=== PATIENT | male | born 1965 | race Caucasian/White ===

== ENCOUNTER 2016-10-15 05:57 | Day surgery (SDC) | payer BC ==
[2016-09-30 07:56] VITALS: BMI 42.0
[2016-10-02 13:12] VITALS: BMI 41.0
--- NOTE | 2016-10-02 13:40 | PAT Medication Instructions ---
Service Date Oct 02, 2016. Current Home Medication List Aspirin (Aspirin Ec), 81 MG PO QAM Atorvastatin (Lipitor), 40 MG PO QAM Clopidogrel (Plavix), 75 MG PO QAM Fish Oil (Gunnison-3), 2 CAP PO QAM Insulin Aspart (Novolog), 0 SC UD Insulin Glargine (Lantus), 50 UNITS SC QPM Lisinopril (Lisinopril), 2.5 MG PO QAM Metformin Hcl (Glucophage), 1,000 MG PO HS Metoprolol Succinate (Toprol Xl), 50 MG PO QAM Minocycline Hcl (Minocin), 100 MG PO QAM Nitroglycerin (Nitrostat), 0.4 MG UT PRN Tamsulosin Hcl (Flomax), 0.4 MG PO QPM Medication Instructions For Your Scheduled Surgery - Check with surgeon/internal carver for instructions: Aspirin (Aspirin Ec), 81 MG PO QAM Clopidogrel (Plavix), 75 MG PO QAM - Hold the following medications 2 weeks prior to surgery: Fish Oil (Gunnison-3), 2 CAP PO QAM - Hold the following medications 48 hours prior to surgery: Metformin Hcl (Glucophage), 1,000 MG PO HS - Hold the following medications the morning of surgery: Lisinopril (Lisinopril), 2.5 MG PO QAM Insulin Aspart (Novolog), 0 SC UD - Take the following medications the morning of surgery with a sip of water: Nitroglycerin (Nitrostat), 0.4 MG UT PRN (if needed) Metoprolol Succinate (Toprol Xl), 50 MG PO QAM Atorvastatin (Lipitor), 40 MG PO QAM Minocycline Hcl (Minocin), 100 MG PO QAM - Take the following medications as scheduled the night before surgery: Nitroglycerin (Nitrostat), 0.4 MG UT PRN (if needed) Tamsulosin Hcl (Flomax), 0.4 MG PO QPM Insulin Glargine (Lantus), 50 UNITS SC QPM Insulin Aspart (Novolog), 0 SC UD If you have any questions please call us at [phone] or [phone] or [phone]
[2016-10-08 10:13] VITALS: BMI 41.0
[~2016-10-15] VITALS: Ht 177.8 cm; Wt 131.1 kg
[~2016-10-15 05:57] MED LIST: ASPI81TA28 PO; CLOP1TAB15 PO; INSU1INJ7 SC; LISI2.5T5 PO; LPT/40 PO; METF1000 PO; METO-217 PO; MINO1CAP25 PO; NTRGSL/4 UT; NVLGI SC; OMEG10007 PO; TAMS0.4C38 PO
[2016-10-15] MEDS ORDERED: CEFAZOLIN 3000 MG/65 ML D5W IV SCH (06:00)
[2016-10-15] MEDS ORDERED: LACTATED RINGER'S 1000ML 1,000 ML IV SCH (06:00)
[2016-10-15] MEDS ORDERED: OXYMETAZOLINE HCL 0.05% NA SPR 15 ML BTL NAE SCH (06:00)
[2016-10-15 06:35] VITALS: BP 156/81; PULSE 78; TEMP 37.3; O2SAT 98; Ht 177.8 cm; Wt 131.1 kg
--- NOTE | 2016-10-15 07:40 | History & Physical Bridge Note ---
H&P Re-Evaluation Bridge Note: I have examined the patient, reviewed the History & Physical and in the interval since the performance of the History & Physical I have noted the following changes of clinical significance: No changes noted
[2016-10-15] MEDS ORDERED: LIDOCAINE/EPINEPHRINE 1% 20 ML VIAL ONE (07:47)
[2016-10-15] MEDS ORDERED: LIDOCAINE 4% INH SOLN 4 ML BTL ONE ×2 (07:48→08:42)
[2016-10-15] MEDS ORDERED: LIDOCAINE HCL 2% 2 ML VIAL (20MG/ML) ONE (07:49)
[2016-10-15] MEDS ORDERED: MIDAZOLAM HCL 1 MG/ML 2ML VIAL ONE (07:49)
[2016-10-15] MEDS ORDERED: SUCCINYLCHOLINE CHLORIDE 20 MG/ML 10 ML VIAL IV ONE (07:49)
[2016-10-15] MEDS ORDERED: PROPOFOL IV EMULSION 10 MG/ML 20 ML VIAL IV ONE (07:49)
[2016-10-15] MEDS ORDERED: ROCURONIUM BROMIDE 10 MG/ML 5 ML VIAL ONE (07:49)
[2016-10-15] MEDS ORDERED: FENTANYL CITRATE INJ 50 MCG/1 ML 2 ML VIAL ONE (07:50)
[2016-10-15] MEDS ORDERED: EpINEphrine INJ 1MG/ML AMP 1 MG/ML AMP ONE ×2 (07:51→08:42)
[2016-10-15] MEDS ORDERED: BACITRACIN OINT 15 GM TUBE ONE (08:14)
[2016-10-15] MEDS ORDERED: ONDANSETRON INJ 2 MG/ML 2 ML VIAL ONE (08:23)
[2016-10-15] MEDS ORDERED: FENTANYL CITRATE INJ 50 MCG/1 ML 2 ML VIAL IV PRN (08:30)
[2016-10-15] MEDS ORDERED: ATROPINE SULFATE 0.1 MG/ML 5ML SYR IV PRN (08:30)
[2016-10-15] MEDS ORDERED: EpHEDrine SULFATE INJ 50 MG/ML AMP IV PRN (08:30)
--- NOTE | 2016-10-15 08:51 | [facility] Operative Report ---
Operative Report Operative Date Oct 15, 2016. Pre-Operative Diagnosis Deviated Septum, Hypertrophy of Both Inferior Nasal Turbinates Post-Operative Diagnosis Deviated Septum, Hypertrophy of Both Inferior Nasal Turbinates Procedure(s) Performed Septoplasty; Bilateral Inferior Turbinate Reduction Surgeon Dr aHmeed Cold Type Artist Surgeon(s) None Estimated Blood Loss 20cc Findings 1. SEVERE L SEPTAL DEVIATION 2. R>L INF TURB HYPERTROPHY Specimens None as per surgeon I attest to the content of the Intraoperative Record and any orders documented therein. Any exceptions are noted below.
--- NOTE | 2016-10-15 08:54 | Discharge Instructions ---
Discharge Instructions Date of Service Oct 15, 2016. Admission Reason for Admission: Deviated Septum, Hypertrophy Both Inferior Nasal Discharge Discharge Diagnosis / Problem: SAME Discharge Goals Goal(s): Therapeutic intervention Activity Recommendations Activity Limitations: as noted below 1. LIGHT ACTIVITY AND NO NOSE BLOWING FOR 2 WEEKS 2. NO DRIVING WHILE ON NORCO . Current Hospital Diet Patient's current hospital diet: Discharge Diet Recommended Diet: Regular Diet Procedures Procedures Performed: Septoplasty; Bilateral Inferior Turbinate Reduction Pending Studies Studies pending at discharge: no Medical Emergencies . Who to Call and When: Medical Emergencies: If at any time you feel your situation is an emergency, please call 911 immediately. . Non-Emergent Contact Non-Emergency issues call your: Surgeon . . "Provider Documentation" section prepared by Pietro Hameed. . VTE Core Measure Inpt VTE Proph given/why not?: SCD's
[2016-10-15] MEDS ORDERED: ONDANSETRON INJ 2 MG/ML 2 ML VIAL IV PRN (09:00)
[2016-10-15] MEDS ORDERED: OXYMETAZOLINE HCL 0.05% NA SPR 15 ML BTL PRN (09:00)
[2016-10-15] MEDS ORDERED: HYDROCODONE/ACETAMOPHEN 5/325MG TAB PO PRN (09:00)
[2016-10-15 09:40] VITALS: BP 159/76; PULSE 81; TEMP 37.2; O2SAT 93
--- NOTE | 2016-10-15 09:41 | OPERATIVE REPORT ---
DATE OF OPERATION: 10/15/2016 PREOPERATIVE DIAGNOSES: 1. Left septal deviation. 2. Right greater than left inferior turbinate hypertrophy. POSTOPERATIVE DIAGNOSES: 1. Left septal deviation. 2. Right greater than left inferior turbinate hypertrophy. PROCEDURES: 1. Septoplasty. 2. Bilateral inferior turbinate outfracture and turbinoplasty. SURGEON: Dr. Hameed. ANESTHESIA: General endotracheal. ESTIMATED BLOOD LOSS: 20 mL. FINDINGS: 1. Severe left septal deviation with both cartilaginous and bony deviation. 2. Severe right greater than left inferior turbinate hypertrophy. SPECIMENS: None. COMPLICATIONS: None. INDICATIONS FOR THE PROCEDURE: The patient is a 51-year-old male with a history of left nasal airway obstruction who was found to have severe left nasal septal deviation as well as right greater than left inferior turbinate hypertrophy. The patient presents for the above-mentioned procedure on an outpatient elective basis. DETAILS OF PROCEDURE: After informed consent had been obtained from the patient, the patient was wheeled to the operating room and placed on the operating table in supine position. Monitors placed. After induction of general endotracheal anesthesia, the patient was prepped in the usual fashion for septoplasty. 9 mL of 1% lidocaine with 1:100,000 epinephrine was used to inject the nasal septum, thereby performing hydrodissection of the mucoperichondrial and mucoperiosteal flaps bilaterally. Lidocaine and epinephrine pledgets were placed in the bilateral nasal cavities and pressure applied. Curved iris scissors were used to trim the patient's nasal vibrissae. The pledgets were removed. A #15 scalpel was used to make a left Garrett incision through which the left sided mucoperichondrial and mucoperiosteal flap was elevated. A #15 scalpel was then used to incise the quadrangular cartilage with care to preserve a 1.5 cm dorsal and caudal strut and the right-sided mucoperichondrial mucoperiosteal flap was elevated through this cartilaginous incision. A Jailyn swivel knife was then used to remove the deviated portion of the quadrangular cartilage. A V-shaped osteotome, mallet, and Jody forceps was then used to remove a large bony septal spur. After removal of the spur, the septum was found to be midline. The septal cavity was suctioned. The left Garrett incision was closed with several simple interrupted 4-0 chromic sutures. A 4-0 plain gut suture on a Montrell needle was then used to perform a quilting stitch of the mucoperichondrial mucoperiosteal flaps bilaterally to help prevent septal hematoma. A Ellis elevator was then used to infracture and subsequently outfracture the inferior turbinates bilaterally. These are injected with 3 mL of 1% lidocaine with 1:100,000 epinephrine. A 2.0 mm turbinate blade using powered instrumentation was then used to perform bilateral inferior turbinoplasties in a submucosal fashion. The nasal cavities and nasopharynx were then suctioned. An orogastric tube was placed and the stomach was suctioned of air and stomach contents. This marked the end of the case. The patient tolerated the procedure well and there were no apparent complications. The patient was extubated and transferred to recovery room in stable condition. I attest to the content of the Intraoperative Record and any orders documented therein. Any exception s are noted below.
[2016-10-15] MEDS ORDERED: LABETALOL HCL IV 5 MG/ML 20ML IV ONE (09:46)
[2016-10-15] MEDS ORDERED: PHENYLEPHRINE HCL INJ 10 MG/ML VIAL ONE (09:46)
[2016-10-15 10:20] VITALS: BP 168/83; PULSE 80; TEMP 37.2; O2SAT 92
[2016-10-15 10:40] VITALS: BP 175/82; PULSE 83; O2SAT 93
--- NOTE | 2016-10-15 11:21 | Anesthesiology Progress Note ---
Anesthesia Post Op Note Date & Time Oct 15, 2016 at 11:20 Vital Signs Pain Intensity: 3 Vital Signs Past 12 Hours Date Time Temp Pulse Resp B/P (MAP) Pulse Ox O2 Delivery O2 Flow Rate FiO2 10/15/16 10:40 83 18 175/82 93 Room Air 10/15/16 10:20 37.2 80 18 168/83 92 Room Air 10/15/16 09:40 37.2 81 18 159/76 93 Room Air 10/15/16 09:34 36.5 10/15/16 09:30 86 13 164/90 99 10/15/16 09:30 86 13 10/15/16 09:25 90 15 10/15/16 09:25 91 15 158/91 99 10/15/16 09:20 92 16 165/83 99 10/15/16 09:20 92 16 10/15/16 09:15 98 20 10/15/16 09:15 99 20 165/79 99 10/15/16 09:10 91 21 10/15/16 09:10 91 21 156/77 98 10/15/16 09:07 158/75 10/15/16 09:00 36.4 88 20 164/74 95 Mask 10 10/15/16 06:35 37.3 78 18 156/81 (106) 98 Room Air Notes Mental Status: alert / awake / arousable, participated in evaluation Pt Amnestic to Procedure: Yes Nausea / Vomiting: adequately controlled Pain: adequately controlled Airway Patency, RR, SpO2: stable & adequate BP & HR: stable & adequate Hydration State: stable & adequate Anesthetic Complications: no major complications apparent
[2016-10-30] MEDS ORDERED: CLOP1TAB54 PO (08:24)
[2016-10-30] MEDS ORDERED: OMEG10007 PO (08:24)
[2016-10-30] MEDS ORDERED: ASPI81TA28 PO (08:24)
== END 2016-10-15 10:57 | disposition home or self-care (01) ==
LOC: C.ACU 05:57
DX: J34.2 Deviated nasal septum (principal); J34.3 Hypertrophy of nasal turbinates; E11.9 Type 2 diabetes mellitus without complications; E78.00 Pure hypercholesterolemia, unspecified; I25.2 Old myocardial infarction; M19.90 Unspecified osteoarthritis, unspecified site; I10 Essential (primary) hypertension; Z85.07 Personal history of malignant neoplasm of pancreas; Z82.49 Family history of ischemic heart disease and other diseases of the circulatory system; Z80.3 Family history of malignant neoplasm of breast; Z87.891 Personal history of nicotine dependence; Z79.82 Long term (current) use of aspirin; Z79.84 Long term (current) use of oral hypoglycemic drugs; Z79.02 Long term (current) use of antithrombotics/antiplatelets; Z79.899 Other long term (current) drug therapy; Z79.4 Long term (current) use of insulin

== ENCOUNTER 2016-11-20 05:14 | Inpatient (IN) | payer BC ==
[2016-10-30 08:35] VITALS: BMI 41.0
--- NOTE | 2016-11-19 14:37 | HISTORY & PHYSICAL EXAMINATION ---
DATE OF ADMISSION: 11/20/2016 CHIEF COMPLAINT: Right knee pain. HISTORY OF PRESENT ILLNESS: The patient is a 51-year-old male with known osteoarthritis about his right knee. He has had previous corticosteroid injections as well as anti-inflammatory medication use. He is getting minimal relief with these modalities and continues to have significant pain and disability. He now desires to proceed with right total knee arthroplasty. PAST MEDICAL HISTORY: Coronary artery disease, hypertension, hypercholesterolemia, Type I diabetes, renal cell carcinoma and pancreatic cancer. PAST SURGICAL HISTORY: Septoplasty, incisional hernia repair, distal pancreatectomy and splenectomy, renal cryoablation for renal cell carcinoma, pilonidal cyst repair, right knee cartilage surgery, and right hand surgery. MEDICATIONS: Include Plavix 75 mg daily, metoprolol succinate XL 50 mg daily, lisinopril 2.5 mg daily, Glucophage 1000 mg daily, insulin as directed, Lipitor 40 mg daily, nitroglycerin 0.4 mg sublingual p.r.n. chest pain, Flomax 0.4 mg daily, lorazepam 1 mg twice daily p.r.n., omega 3 fatty acid 2 capsules daily, and aspirin 81 mg daily. ALLERGIES: No known drug allergies. SOCIAL HISTORY AND REVIEW OF SYSTEMS: Noncontributory. PHYSICAL EXAMINATION: GENERAL: Well-nourished and well-developed, obese male who appears his stated age. HEENT: Normocephalic and atraumatic. Extraocular movements intact. Oropharynx is pink and moist. NECK: Supple without adenopathy. LUNGS: Clear to auscultation bilaterally. HEART: Regular rate and rhythm. ABDOMEN: Soft, nontender, and nondistended. EXTREMITIES: The upper extremities are within normal limits. The right knee has a varus alignment. His range of motion is from 0-120 degrees. He has moderate crepitus with range of motion. X-RAYS: X-rays were reviewed. He has a varus aligned knee. He has moderate to severe medial and patellofemoral joint DJD with osteophyte formation. ASSESSMENT: Right knee degenerative joint disease. PLAN: Risks versus benefits were discussed. Consent was obtained. The patient's primary care physician is Dr. Sean Rincon. His gas flow regulator is Joe Bermudez PA-C. We will proceed with right total knee arthroplasty upon preoperative workup and medical clearance. [facility]
[2016-11-20] VITALS (10 sets, daily range): BP systolic 100–155; BP diastolic 61–74; PULSE 75–93; TEMP 36.3–36.9; O2SAT 94–97; Ht 177.8 cm; Wt 131.1 kg
[~2016-11-20] VITALS: Ht 177.8 cm; Wt 131.1 kg
[~2016-11-20 05:14] MED LIST changes: -CLOP1TAB15 PO; +CLOP1TAB54 PO
[2016-11-20] MEDS ORDERED: FAMOTIDINE 20 MG TAB PO SCH (06:00)
[2016-11-20] MEDS ORDERED: ROPIVACAINE 5MG/ML 30 ML 150 MG, BUPIVACAINE/EPINEPHR 0.5% MPF 30 ML, KETOROLAC TROMETH... INFIL SCH ×7 (06:00)
[2016-11-20] MEDS ORDERED: METOCLOPRAMIDE HCL 10 MG TAB PO SCH (06:00)
[2016-11-20] MEDS ORDERED: LACTATED RINGER'S 1000ML 1,000 ML IV SCH (06:00)
[2016-11-20] MEDS ORDERED: CEFAZOLIN 3000 MG/65 ML D5W 65 ML IV SCH (06:00)
[2016-11-20] MEDS ORDERED: GABAPENTIN 300 MG CAP PO SCH (06:00)
[2016-11-20] MEDS ORDERED: TRANEXAMIC ACID INJ 1,000 MG in SODIUM CHLORIDE 0.9% 100ML 100 ML IV SCH (06:00)
[2016-11-20] MEDS ORDERED: CeleBREX 200 MG CAP PO SCH (06:00)
[2016-11-20] MEDS ORDERED: LACTATED RINGER'S 1000ML IV SCH (06:00)
[2016-11-20] MEDS ORDERED: DEXAMETHASONE 4 MG TAB PO SCH (06:00)
[2016-11-20] MEDS ORDERED: LACTATED RINGER'S 1000ML 500 ML IV ONE (06:00)
[2016-11-20] MEDS ORDERED: ACETAMINOPHEN 500 MG TAB PO SCH (06:00)
[2016-11-20] MEDS ORDERED: BUPIVACAINE 0.5 % 5 MG/1 ML PF 10ML VIAL ONE (06:23)
[2016-11-20] MEDS ORDERED: MIDAZOLAM HCL 1 MG/ML 2ML VIAL ONE ×2 (06:48→07:46)
[2016-11-20] MEDS ORDERED: FENTANYL CITRATE INJ 50 MCG/1 ML 2 ML VIAL ONE (06:48)
[2016-11-20] MEDS ORDERED: LIDOCAINE HCL 2% 2 ML VIAL (20MG/ML) ONE (06:52)
[2016-11-20] MEDS ORDERED: PROPOFOL IV EMULSION 10 MG/ML 20 ML VIAL IV ONE ×4 (06:52→08:12)
[2016-11-20] MEDS ORDERED: ORTHO JOINT ANESTHETIC ONE (07:03)
[2016-11-20] MEDS ORDERED: POVIDONE-IODINE OP SOLN 30 ML BTL ONE (07:04)
[2016-11-20] MEDS ORDERED: BACITRACIN 50000 UNIT VIAL ONE (07:04)
[2016-11-20] MEDS ORDERED: GLYCOPYRROLATE INJ 0.2 MG/ML VIAL ONE (08:12)
[2016-11-20] MEDS ORDERED: ONDANSETRON INJ 2 MG/ML 2 ML VIAL ONE (08:12)
--- NOTE | 2016-11-20 08:43 | [facility] Post Operative Brief Note ---
Immediate Operative Summary Operative Date Nov 20, 2016. Pre-Operative Diagnosis Right knee degenerative joint disease Post-Operative Diagnosis same as pre-operative Procedure(s) Performed Right total knee arthroplasty-cemented Surgeon Dr. Dorian Vanegas Whip Sawyer Surgeon(s) PARTH Diaz Estimated Blood Loss 20ml Findings severe OA Specimens Specimen A: Right knee bone and tissue Disposition Recovery Room / PACU
--- NOTE | 2016-11-20 08:56 | OPERATIVE REPORT ---
DATE OF OPERATION: 11/20/2016 PREOPERATIVE DIAGNOSIS: Osteoarthritis, right knee. POSTOPERATIVE DIAGNOSIS: Osteoarthritis, right knee. PROCEDURE: Right total knee arthroplasty, cementless. SURGEON: Dr. Vanegas. MEDICAL IMAGING TECH: Lino Lew PA-C ANESTHESIA: Spinal. COMPLICATIONS: None. IMPLANTS USED: Femoral size 6 cementless, tibial 5 cementless, tibial 11, and patella 36 cemented. OPERATION AND FINDINGS: Following induction of spinal anesthesia, the patient's right leg was prepped and draped in the usual sterile manner. Limb was exsanguinated with an Esmarch bandage and tourniquet was inflated to 350 mmHg. A longitudinal incision was made anteriorly. Subcutaneous tissue was sharply dissected. Electrocautery was used for hemostasis. Prepatellar bursa was incised and median parapatellar incision was performed. Patella was everted and the knee was flexed. Fat pad was removed to aid in visualization and the anterior and posterior cruciate ligaments were removed. The medial face of the tibia was cleared of soft tissue first with a Bovie and a Philip elevator. This tissue was retracted posteriorly using a blunt Hohmann. A Tejada retractor was used to expose the synovium above on the anterior aspect of the femur and this was removed down to bone. The PSI guide was placed on the distal femur and two pins were placed anteriorly and kept in position and two additional pins were placed distally and removed. The distal femoral cutting block was placed in position and the distal femoral cut was used in the +0 setting. Next, the cutting block was removed and the femoral 6 block was placed in the distal end of the femur. Care was taken to ensure appropriate external rotation and feeler gauge was used to ensure no notching would occur. The femoral block was centered on the distal femur and in the medial and lateral direction and was fixed using two bone screws. The gold pins were then removed. The oscillating saw was used to create the bone cuts and the distal femoral cutting block was removed and the reciprocating saw was used to further trim the femoral cuts as well as a deep in the area for the trochlear groove. Next, posterior condyle remnants were removed. Following this, a meniscal clamp and knife were utilized to remove the anterior portion of both medial and lateral meniscus. The proximal tibia PSI guide was placed into position and the proximal tibial cutting guide was screwed into position. The extra medullary alignment guide was utilized to ensure appropriate alignment. The proximal tibia was cut and the proximal tibial cutting block was removed and this bone fragment was removed. The appropriate guide was used to perform the notch cut on the distal femur and a lamina rotating field assembler and a cochlear knife were utilized to finish both medial and lateral meniscectomies to remove any remnants of the posterior or anterior cruciate ligaments. Following this, the distal femoral component was impacted into position and blunt Lluvia was used to sublux the tibia anteriorly. The proximal tibia was sized and a 5 tibial tray was chosen as the size to be used. This was put into position and appropriate external rotation and a double check with extramedullary alignment guide was performed. The canal for the tibial stem was prepared first with a 17 mm drill and then the punch and a mallet and the trial tibial poly was placed. An 11 was chosen the size to be used. It was brought to extension and the patella was prepared with the patellar reamer. A 36 component was chosen the size to be used. The trial component was placed and knee was taken through a full range of motion and there was found to be no lateral subluxation of the tibia. No lateral release was required. The trials were all removed. The final components were obtained and assembled. The wound was irrigated and closed over a Hemovac drain. #1 Vicryl was used to close the extensor mechanism. Subcutaneous tissues closed using 0 Dexon. Skin was closed with marine. Sterile dressing of Adaptic, 4 x 4's, sterile Webril, and Hollis was applied. The patient tolerated the procedure well. Due to the complex nature of the procedure, the entire surgery was performed with the operational assistance of Lino Lew PA-C. The asset protection assistant, under direct supervision, was involved in the actual performance of all aspects of the surgical procedure including hemostasis, tissue retraction and incision, instrument management, patient positioning, and wound closure. DISPOSITION: Recovery room stable. I attest to the content of the Intraoperative Record and any orders documented therein. Any exception s are noted below.
[2016-11-20] MEDS ORDERED: METOCLOPRAMIDE HCL INJ 5 MG/ML 2 ML VIAL IV PRN (09:30)
[2016-11-20] MEDS ORDERED: MAGNESIUM HYDROXIDE SUSP 30 ML UDC PO PRN (09:30)
[2016-11-20] MEDS ORDERED: MoRPHine SULFATE 2 MG/ML CARP IV PRN (09:30)
[2016-11-20] MEDS ORDERED: NITROGLYCERIN 0.4 MG SL PER TAB CHARGE UT PRN (09:30)
[2016-11-20] MEDS ORDERED: ALUMINUM/MAGNESIUM/SIMETH (MAALOX MAX) 30 ML UDC PO PRN (09:30)
[2016-11-20] MEDS ORDERED: ONDANSETRON INJ 2 MG/ML 2 ML VIAL IV PRN ×2 (09:30→10:00)
[2016-11-20] MEDS ORDERED: ZOLPIDEM TARTRATE 5 MG TAB PO PRN (09:30)
--- NOTE | 2016-11-20 09:57 | Anesthesiology Progress Note ---
Anesthesia Post Op Note Date & Time Nov 20, 2016 at 09:57 Vital Signs Pain Intensity: 0 Vital Signs Past 12 Hours Date Time Temp Pulse Resp B/P (MAP) Pulse Ox O2 Delivery O2 Flow Rate FiO2 11/20/16 09:50 76 16 125/72 100 Nasal Cannula 2 11/20/16 09:40 87 16 122/71 100 Oxymask 10 11/20/16 09:30 88 16 118/73 100 Oxymask 10 11/20/16 09:22 36.2 87 16 107/56 100 Oxymask 10 11/20/16 05:45 36.8 77 18 155/73 97 Room Air Notes Mental Status: alert / awake / arousable, participated in evaluation Pt Amnestic to Procedure: Yes Nausea / Vomiting: adequately controlled Pain: adequately controlled Airway Patency, RR, SpO2: stable & adequate BP & HR: stable & adequate Hydration State: stable & adequate Neuraxial Anesthesia: was administered, sensory block is resolving Anesthetic Complications: no major complications apparent
[2016-11-20] MEDS ORDERED: FENTANYL CITRATE INJ 50 MCG/1 ML 2 ML VIAL IV PRN (10:00)
[2016-11-20] MEDS ORDERED: ATROPINE SULFATE 0.1 MG/ML 5ML SYR IV PRN (10:00)
[2016-11-20] MEDS ORDERED: EpHEDrine SULFATE INJ 50 MG/ML AMP IV PRN (10:00)
[2016-11-20] MEDS ORDERED: FLUMAZENIL 0.1 MG/1 ML 10 ML VIAL IV ONE (10:13)
[2016-11-20] MEDS ORDERED: MoRPHine SULFATE 4 MG/ML 1 ML CARP\\VIAL IV PRN (10:15)
[2016-11-20] MEDS ORDERED: MoRPHine SULFATE 10 MG/ML CARP/VIAL IV PRN (10:15)
--- NOTE | 2016-11-20 10:34 | DIAGNOSTIC IMAGING REPORT ---
R KNEE 1 OR 2 VIEWS ROUTINE CLINICAL HISTORY: Postoperative evaluation. COMPARISON: None FINDINGS: Alignment of the total right knee arthroplasty is anatomic. There is no fracture or unexpected radiopaque foreign body. Drains are in place. IMPRESSION: Expected findings following total right knee arthroplasty. Electronically signed by: Marcos Acosta M.D. 11/20/2016 10:32 AM Dictated Date/Time: 11/20/2016 10:32 AM
[2016-11-20] MEDS: SODIUM CHLORIDE 0.9% 1000ML 1,000 ML IV SCH ×2 (10:41→18:58)
[2016-11-20] MEDS ORDERED: DEXTROSE 50% 50 ML SYR IV PRN (12:45)
[2016-11-20] MEDS ORDERED: GLUCOSE 10 TABS/TUBE PO PRN (12:45)
[2016-11-20] MEDS ORDERED: GLUCAGON FOR INJ 1 MG VIAL SQ PRN (12:45)
[2016-11-20] MEDS ORDERED: GLUCOSE 40% GEL 15 GM TUBE PO PRN (12:45)
[2016-11-20] MEDS: FERROUS GLUCONATE 324 MG TAB PO SCH ×2 (12:46→18:11)
[2016-11-20] MEDS: ACETAMINOPHEN 500 MG TAB PO SCH ×2 (12:47→21:44)
[2016-11-20] MEDS ORDERED: PHARMACY GLYCEMIC MGMT CONSULT PRN (12:58)
--- NOTE | 2016-11-20 13:44 | Medical Consult ---
Consultation Date of Consultation: Nov 20, 2016. Attending Physician: Dorian Vanegas M.D. Reason for Consultation: Post Op Medical Management History of Present Illness 51 year old male who is s/p right TKA today by Dr. Vanegas. Patient reports increasing knee pain for the past several years. He failed outpatient conservative measures and therefore presented for the planned procedure today. Post operatively the patient is doing well. He reports his pain is well controlled. Sensation is intact to the RLE. He denies chest pain and shortness of breath. No abdominal pain, nausea, or vomiting. He denies lightheadedness, dizziness, or diaphoresis. He has not voided since surgery. Past Medical/Surgical History Medical Problems: (1) CAD (coronary artery disease) Permanent Comment: 2004 - inferior wall IA, s/p BARI to proximal mid RCA 08/2011 - BARI x 2 to mid left circumflex 10/2011 - cath negative for stent restenosis, showed diffuse minor luminal irregularities 09/2012 - cath showed nonobstructive CAD with patent stents Status: Chronic (2) DM type 2 (diabetes mellitus, type 2) Status: Chronic (3) Dyslipidemia Status: Chronic (4) Hidradenitis suppurativa Status: Chronic (5) HTN (hypertension) Status: Chronic (6) Neuroendocrine cancer Status: Chronic (7) Renal cell carcinoma Status: Chronic Surgical Problems: (1) H/O hernia repair Status: Chronic (2) H/O knee surgery Status: Chronic (3) H/O splenectomy Status: Chronic (4) History of nephrectomy Status: Chronic (5) History of partial pancreatectomy Status: Chronic (6) s/p ablation renal mass Status: Chronic (7) S/P nasal surgery Status: Chronic (8) s/p parial ureterectomy Status: Chronic Family History FH: heart disease GRANDMOTHER Social History Smoking Status: Former Smoker Alcohol Use: occasionally Allergies Coded Allergies: No Known Allergies (Unverified , 11/20/16) Home Medications Plavix (Clopidogrel Bisulfate) 75 Mg Tab 75 Mg PO QAM Aspirin Ec (Aspirin) 81 Mg Tab 81 Mg PO QAM [place]-3 (Fish Oil) 1 Ea Cap 1 Cap PO QAM Nitrostat (Nitroglycerin) 0.4 Mg Tab 0.4 Mg UT PRN Flomax (Tamsulosin Hcl) 0.4 Mg Cap 0.4 Mg PO QPM Novolog (Insulin Aspart) 100 Unit/ Inj 0 SC UD carb ratio 1/2. correction factor 5 for blood sugar >120. with meals and snacks Lantus (Insulin Glargine) 100 Unit/ Inj 75 Units SC QPM Minocin (Minocycline Hcl) 100 Mg Cap 100 Mg PO QAM [facility] USE Lipitor (Atorvastatin) 40 Mg Tab 40 Mg PO QAM Toprol Xl (Metoprolol Succinate) 50 Mg Tabcr 50 Mg PO QAM Glucophage (Metformin Hcl) 1,000 Mg Tab 1,000 Mg PO HS Lisinopril 2.5 Mg Tab 2.5 Mg PO QAM Current Inpatient Medications Current Inpatient Medications Medications (Trade) Dose Ordered Sig/Waldemar Route Start Time Stop Time Status Last Admin Dose Admin Sodium Chloride 1,000 ml @ 100 mls/hr Q10H IV 11/20/16 09:24 11/21/16 09:23 11/20/16 10:41 100 MLS/HR Cefazolin Sodium 3000 mg/Dextrose 65 ml @ 100 mls/hr Q8H IV 11/20/16 16:00 11/21/16 00:38 Oxycodone HCl (Roxicodone Immediate Rel Tab) 1 TABLET FOR PAIN RATING... Q4H PRN PO 11/20/16 09:30 12/04/16 09:29 Morphine Sulfate (MoRPHine SULFATE INJ) 2 mg Q2HWA PRN IV 11/20/16 09:30 12/04/16 09:29 Acetaminophen (Tylenol Tab) 1,000 mg Q8H PO 11/20/16 14:00 12/20/16 09:29 11/20/16 12:47 1,000 MG Magnesium Hydroxide (Milk Of Magnesia Susp) 30 ml Q6H PRN PO 11/20/16 09:30 12/20/16 09:29 Docusate Sodium (coLACE CAP) 100 mg BID PO 11/20/16 21:00 12/20/16 20:59 Diphenhydramine HCl (Benadryl Cap) 25 mg Q8H PRN PO 11/20/16 09:30 12/20/16 09:29 Al Hydrox/Mg Hydrox/Simethicone (Maalox Max Susp) 15 ml Q4H PRN PO 11/20/16 09:30 12/20/16 09:29 Zolpidem Tartrate (Ambien Tab) 5 mg HSZ PRN PO 11/20/16 09:30 12/20/16 09:29 Multivitamins (Multivitamin Tab) 1 tab QAM PO 11/21/16 09:00 12/21/16 08:59 Ondansetron HCl (Zofran Inj) 4 mg Q6H PRN IV 11/20/16 09:30 12/20/16 09:29 Metoclopramide HCl (Reglan Inj) 10 mg Q6H PRN IV 11/20/16 09:30 12/20/16 09:29 Ferrous Gluconate (Ferrous Gluconate Tab) 324 mg TIDM PO 11/20/16 12:30 12/20/16 12:29 11/20/16 12:46 324 MG Pantoprazole Sodium (Protonix Tab) 40 mg QAM PO 11/21/16 09:00 12/21/16 08:59 Dexamethasone Sodium Phosphate 10 mg/Syringe 2.5 ml @ 1 mls/min TODAY@0730 ONCE IV 11/21/16 07:30 11/21/16 07:32 Aspirin (Ecotrin Tab) 81 mg QAM PO 11/21/16 09:00 12/21/16 08:59 Atorvastatin Calcium (Lipitor Tab) 40 mg QAM PO 11/21/16 09:00 12/21/16 08:59 Clopidogrel Bisulfate (plAVix TAB) 75 mg QAM PO 11/21/16 09:00 12/21/16 08:59 Lisinopril (Zestril Tab) 2.5 mg QAM PO 11/21/16 09:00 12/21/16 08:59 Metoprolol Succinate (Toprol Xl Tab) 50 mg QAM PO 11/21/16 09:00 12/21/16 08:59 Nitroglycerin (Nitrostat Tab) 0.4 mg UD PRN UT 11/20/16 09:30 12/20/16 09:29 Tamsulosin HCl (Flomax Cap) 0.4 mg QPM PO 11/20/16 21:00 12/20/16 20:59 Fentanyl Citrate (Fentanyl Inj) 50 mcg Q5M PRN IV 11/20/16 10:00 11/20/16 15:00 Ondansetron HCl (Zofran Inj) 4 mg ONE PRN IV 11/20/16 10:00 11/20/16 15:00 Ephedrine Sulfate (EpHEDrine SULFATE INJ) 5 mg Q5M PRN IV 11/20/16 10:00 11/20/16 15:00 Atropine Sulfate (Atropine Sulfate 0.1MG/Ml Inj) 0.5 mg Q1M PRN IV 11/20/16 10:00 11/20/16 15:00 Morphine Sulfate (MoRPHine SULFATE INJ) 4 mg Q4HWA PRN IV 11/20/16 10:15 12/04/16 10:14 Morphine Sulfate (MoRPHine SULFATE INJ) 6 mg Q4HWA PRN IV 11/20/16 10:15 12/04/16 10:14 Miscellaneous Information (Consult Glycemic Management Pharmacy) 1 ea UD PRN N/A 11/20/16 12:58 12/20/16 12:57 Insulin Glargine (Lantus Solostar Pen) 30 units Q12 SC 11/20/16 21:00 12/20/16 20:59 UNV Insulin Aspart (novoLOG ASPART) SLIDING SCALE If C... ACHS SC 11/20/16 17:15 12/20/16 17:14 UNV Glucose (Glucose 40% Gel) 15-30 GRAMS 15 GRAMS... UD PRN PO 11/20/16 12:45 12/20/16 12:44 Glucose (Glucose Chew Tab) 4-8 Tablets 4 Tabl... UD PRN PO 11/20/16 12:45 12/20/16 12:44 Dextrose (Dextrose 50% 50ML Syringe) 25-50ML OF 50% DW IV FOR... UD PRN IV 11/20/16 12:45 12/20/16 12:44 Glucagon (Glucagon Inj) 1 mg UD PRN SQ 11/20/16 12:45 12/20/16 12:44 Review of Systems ROS per HPI, all other systems reviewed and negative Physical Exam Date Time Temp Pulse Resp B/P (MAP) Pulse Ox O2 Delivery O2 Flow Rate FiO2 11/20/16 12:15 36.3 87 19 118/70 (86) 94 Room Air 11/20/16 11:26 36.5 78 20 109/73 (85) 95 Nasal Cannula 2.0 11/20/16 11:08 36.5 78 20 109/73 (85) 95 Nasal Cannula 2.0 11/20/16 10:20 Nasal Cannula 11/20/16 10:20 Nasal Cannula 11/20/16 10:20 36.4 75 109/73 (85) 96 2.0 11/20/16 10:00 36.2 79 16 134/70 100 Nasal Cannula 2 11/20/16 09:50 76 16 125/72 100 Nasal Cannula 2 11/20/16 09:40 87 16 122/71 100 Oxymask 10 11/20/16 09:30 88 16 118/73 100 Oxymask 10 11/20/16 09:22 36.2 87 16 107/56 100 Oxymask 10 11/20/16 05:45 36.8 77 18 155/73 97 Room Air General Appearance: no apparent distress Head: normocephalic, atraumatic Eyes: normal inspection, sclerae normal ENT: hearing grossly normal Neck: supple, no JVD Respiratory/Chest: lungs clear, normal breath sounds, no respiratory distress Cardiovascular: regular rate, rhythm, no edema, normal peripheral pulses Abdomen/GI: normal bowel sounds, non tender, soft Extremities/Musculoskelatal: + pertinent finding (s/p right knee surgery, surgical dressing dry and intact, drain in place draining bloody drainage, CSM checks intact to RLE) Neurologic/Psych: no motor/sensory deficits, alert, normal mood/affect, oriented x 3 Skin: normal color, warm/dry Laboratory Results 11/20/16 20:40 Test 11/20/16 20:40 11/20/16 21:41 Anion Gap 7.0 mmol/L (3-11) Est Creatinine Clear Calc Drug Dose 84.0 ml/min Estimated GFR () 66.5 Estimated GFR (Non- 57.4 BUN/Creatinine Ratio 14.8 (10-20) Calcium Level 8.7 mg/dl (8.5-10.1) Bedside Glucose 157 mg/dl (70-99) Last 24 Hours Test 11/20/16 05:44 11/20/16 09:40 11/20/16 12:44 Bedside Glucose 124 mg/dl 155 mg/dl 325 mg/dl Assessment & Plan S/P RIGHT RKA - POD#0 - activity and wound care orders as per ortho - pain control with bowel regimen - PT/OT - monitor H/H for acute blood loss anemia and transfuse blood products PRN DM - hgb a1c 7.1 07/2016 - patient on large amounts of Lantus and Novolog at home - hold metformin - blood sugar currently 325; expect blood sugar to rise with stress of surgery and steroids used - for now, will utilize short term insulin gtt to help attain good control with transition to SQ regimen CAD - stable, no reports of chest pain - continue ASA, Plavix, beta ozzie, and statin HTN - BP controlled, continue metoprolol and lisinopril DVT PROPHYLAXIS - ASA +TEDs/SCDs per surgery Thank you for this consultation. We will follow the patient with you during their hospital stay. You can [facility] a [facility] via pager @ . ADDENDUM: I have seen and examined the patient and agree with the assessment and plan as stated above. Pharmacy initiated insulin drip which was stopped around 8pm when BS fell into the normal range. Cont with basal bolus insulin per protocol. DO Blaine
[2016-11-20] MEDS ORDERED: INSULIN HUMAN REGULAR IV BOLUS 5 UNIT in SYRINGE 0 ML IV SCH (14:00)
[2016-11-20] MEDS: INSULIN REGULAR 250 UNITS in SODIUM CHLORIDE 0.9% 250ML 250 ML IV SCH ×4 (14:19→17:23)
--- NOTE | 2016-11-20 16:11 | Pharmacy Progress Note ---
Glycemic Control Intl Consult Date of Service Nov 20, 2016. Scope Glycemic Pharmacist consulted by Archie on 11/20/16 for glycemic control and to write orders per [facility] inpatient glycemic control protocol Objective Weight (Kilograms): 131.100 Accuchecks BSG (last 24hrs): Test 11/20/16 05:44 11/20/16 09:40 11/20/16 12:44 11/20/16 15:12 Bedside Glucose 124 mg/dl (70-99) 155 mg/dl (70-99) 325 mg/dl (70-99) 290 mg/dl (70-99) Recent Pertinent Medications Outpatient Anti-diabetic Regimen: * Lantus 75 units SQ qPM * Novolog TID with meals * per patient; 12-13 units with breakfast, 25-30 units with lunch, 35 units with dinner * A1c = 7.1 % 07/2016 Risk Factors for Insulin Resistance: * Steroids: Orthomix + Dexamethasone 8 mg PO pre-op, Dexamethasone 10 mg IV x 1 on 11/21 am * Recent Surgery: POD #0 R-TKA * Diet: T2DM Assessment & Plan ASSESSMENT: * 51 yr old male POD #0 s/p R-TKA * Patient is well controlled on outpatient regimen of ~150 units of insulin per day. He will likely require more in hospital due to stress of surgery and administration of steroids. BSG was 327 mg/dL upon arrival to the floor. * Will initiate short term IV insulin infusion to due to severe hyperglycemia. * I will also give the patient a dose of Lantus this evening to help desk support specialist in transition off drip tomorrow. * Lantus 50 units (~66% of home basal dose and slightly less than weight/ stress of 2) * ADA & AACE recommend a goal blood sugar range 140-180 mg/dl for the majority of critically ill & non-critically ill patients. However, more stringent targets may be selected in individual cases. Will utilize more stringent goal of 110-140mg/dl based on patient age & comorbidities. Additionally, tighter glycemic control is warranted to facilitate wound/infection healing. PLAN FOR INPATIENT GLYCEMIC CONTROL: * Starting IV insulin infusion per severe stress protocol * Goal Range 100 - 160 mg/dl * Lantus 50 units SQ x 1 dose tonight * Further Lantus to be ordered on 11/21 * If insulin drip is held, I recommend the following: * NOVOLOG per scale ACHS * Goal Range: Low 110 mg/dL - High 140 mg/dL * Correction Factor: 10 mg/dL/unit * Nutritional / Prandial insulin per carb ratio of 1 unit per 4 grams CHO consumed * Overnight checks with coverage at 00 and 04 * Please note that the plan above was derived based on current level of insulin resistance and hospital stress. These recommendations are appropriate for inpatient admission only. Plan of care upon discharge will need to be reassessed to avoid potential outpatient hypo/hyperglycemia. Thank you.
[2016-11-20] MEDS: CEFAZOLIN IV 3,000 MG in DEXTROSE 5% 50ML 50 ML IV SCH (16:50)
[2016-11-20] MEDS ORDERED: INSULIN ASPART 100 UNITS/ML 3 ML PEN SC SCH (18:30)
[2016-11-20] MEDS ORDERED: INSULIN GLARGINE SOLOSTAR 100 UNITS/ML 3 ML PEN SC SCH (21:00)
[2016-11-20 21:30] LABS: BUN/CREATININE RATIO 14.8 (10-20); CALCIUM 8.7 mg/dl (8.5-10.1); CREATININE 1.4 mg/dl (0.60-1.40); POTASSIUM 4.2 mmol/L (3.5-5.1)
[2016-11-20] MEDS: TAMSULOSIN HCL 0.4 MG CAP PO SCH (21:44)
[2016-11-20] MEDS: DOCUSATE SODIUM 100 MG CAP PO SCH (21:44)
[2016-11-21] MEDS: CEFAZOLIN IV 3,000 MG in DEXTROSE 5% 50ML 50 ML IV SCH (00:11)
[2016-11-21] MEDS: INSULIN ASPART 100 UNITS/ML 3 ML PEN SC SCH ×5 (00:20→22:28)
[2016-11-21 04:25] VITALS: BP 129/77; PULSE 77; TEMP 36.8; O2SAT 94
[2016-11-21] MEDS: SODIUM CHLORIDE 0.9% 1000ML 1,000 ML IV SCH (04:44)
[2016-11-21] MEDS: ACETAMINOPHEN 500 MG TAB PO SCH ×3 (05:45→22:29)
[2016-11-21 06:59] LABS: HEMATOCRIT 36.4 % (42-52); MEAN CELL VOLUME 89.4 fL (80-100); MEAN CORPUSCULAR HEMOGLOBIN 29.5 pg (25-34); MEAN PLATELET VOLUME 9.1 fL (7.4-10.4); PLATELET COUNT 346 K/uL (130-400); RED BLOOD COUNT 4.07 M/uL (4.7-6.1); WHITE BLOOD COUNT 25.36 K/uL (4.8-10.8)
[2016-11-21] MEDS ORDERED: PHARMACY GLYCEMIC MGMT CONSULT STA (07:26)
[2016-11-21] MEDS ORDERED: DEXAMETHASONE INJ 10 MG in SYRINGE 0 ML IV ONE (07:30)
[2016-11-21] MEDS ORDERED: INSULIN GLARGINE SOLOSTAR 100 UNITS/ML 3 ML PEN SC SCH ×2 (07:30→21:00)
[2016-11-21 07:38] LABS: BUN/CREATININE RATIO 20.4 (10-20); CALCIUM 8.3 mg/dl (8.5-10.1); POTASSIUM 4.4 mmol/L (3.5-5.1)
[2016-11-21 07:50] VITALS: BP 148/81; PULSE 71; TEMP 36.6; O2SAT 95
[2016-11-21] MEDS ORDERED: INSULIN ASPART 100 UNITS/ML 3 ML PEN SC SCH (08:00)
--- NOTE | 2016-11-21 08:05 | Orthopedic Progress Note ---
Orthopedic Progress Note Date of Service Nov 21, 2016. Subjective Post OP Day: 1 Reports: feeling well Objective N/V intact, dressing C/D/I (Hemovac in place), toes mobile Date Time Temp Pulse Resp B/P (MAP) Pulse Ox O2 Delivery O2 Flow Rate FiO2 11/21/16 07:50 36.6 71 18 148/81 (103) 95 Room Air 11/21/16 07:30 Room Air 11/21/16 04:25 36.8 77 16 129/77 (94) 94 Room Air 11/21/16 00:10 Room Air 11/20/16 23:40 36.9 77 16 130/74 (92) 94 Room Air 11/20/16 19:28 36.6 81 17 100/61 (74) 94 Room Air 11/20/16 15:30 36.5 87 17 132/71 (91) 95 Nasal Cannula 3.0 11/20/16 15:20 94 Room Air 11/20/16 13:25 36.3 93 17 117/70 (86) 95 Room Air 11/20/16 12:15 36.3 87 19 118/70 (86) 94 Room Air 11/20/16 11:26 36.5 78 20 109/73 (85) 95 Nasal Cannula 2.0 11/20/16 11:08 36.5 78 20 109/73 (85) 95 Nasal Cannula 2.0 11/20/16 10:20 Nasal Cannula 11/20/16 10:20 Nasal Cannula 11/20/16 10:20 36.4 75 109/73 (85) 96 2.0 11/20/16 10:00 36.2 79 16 134/70 100 Nasal Cannula 2 11/20/16 09:50 76 16 125/72 100 Nasal Cannula 2 11/20/16 09:40 87 16 122/71 100 Oxymask 10 11/20/16 09:30 88 16 118/73 100 Oxymask 10 11/20/16 09:22 36.2 87 16 107/56 100 Oxymask 10 Laboratory Results 24 Hours: Test 11/21/16 06:24 Hematocrit 36.4 % Hemoglobin 12.0 g/dL Assessment & Plan Assessment: 51 yo male stable POD #1 s/p right TKA Plan: 1. Med management 2. DVT prophylaxis- resume Plavix and ASA, SCDs 3. PT/OT 4. D/C planning- home w/ OPPT
--- NOTE | 2016-11-21 08:07 | Discharge Instructions ---
Discharge Instructions Date of Service Nov 21, 2016. Admission Reason for Admission: Right Knee Osteoarthritis Discharge Discharge Diagnosis / Problem: Right knee arthritis Discharge Goals Goal(s): Decrease discomfort, Improve function Activity Recommendations Activity Limitations: as noted below Weightbearing Status: Right weightbearing (as tolerated) . Instructions / Follow-Up Instructions / Follow-Up ACTIVITY RECOMMENDATIONS: SELF CARE INSTRUCTIONS AFTER TOTAL KNEE REPLACEMENT A. You may need to continue a physical therapy program after discharge from the hospital. There are several options available to you. Your doctor will assist you in selecting the best one for you. 1. An out-patient facility 2 to 3 times a week for therapy or home therapy. 2. Continue working on all exercises taught to you in the hospital. Your goals should be to increase bending of your knee to 90 degrees and beyond and to fully straighten your knee. B. You may progress at your own pace from walking with a walker or crutches to a cane; then to no assistive devices. C. Make walking a part of your daily routine. Be up as much as comfortable with rest periods throughout the day. Rest with leg elevation is very important. Use the ice wrap frequently for the first 3-4 weeks. D. There are no restrictions on activities. You may ride in a car, shop, participate in dirt bike racer and all social activities. E. Wear the long elastic stockings (RAY hose) 20 hours a day for 2 weeks after surgery. They can be removed several times a day for laundering and for a bath. F. You may shower, no tub baths until cleared by your doctor. SPECIAL CARE INSTRUCTIONS: VERY IMPORTANT TO READ AND REVIEW A. There are a few signs you need to watch for after you are home. Call [facility] if you notice any of the followin. Increased severe knee pain. Some pain is expected especially when you exercise. 2. Increased swelling in your leg or knee; pain or swelling of the calf muscle in either lower leg. 3. Any fluid drainage from the incision. 4. Shortness of breath or chest pain. B. Please call [facility] at if you have any concerns or questions about your operation or recovery. The doctor or his nurse will return your call promptly. C. You must take antibiotics before dental work, bladder, bowel or other surgery. Your doctor will provide you with a permanent care to carry describing this precaution. IMPORTANT: * REMEMBER TO TAKE ASPIRIN, 81 MG, TWICE DAILY FOR 4 WEEKS UNLESS OTHERWISE DIRECTED. THIS IS YOUR BLOOD THINNER. * HIGH RISK PATIENTS MAY BE PRESCRIBED A STRONGER BLOOD THINNER. THIS WILL BE PROVIDED AT DISCHARGE. * CALL IF INCREASED PAIN, REDNESS, DRAINAGE OR FEVER GREATER THAT 101. * WEAR RAY HOSE 20 HOURS PER DAY FOR 2 WEEKS. Silverlon- This is a large adhesive bandage that contains silver ions. This helps your incision heal by fighting off bacteria and protecting it from the outside environment. You are permitted to shower with this dressing. This will remain on your incision for 7 days and then should be removed. Some visible blood or drainage through the dressing window is normal. If there is significant drainage or leaking noted before the 7 days notify your doctor's office immediately. Once removed, keep incision clean and dry. If there is any drainage or redness noted, please call your surgeon. FOLLOW UP VISIT: If appointment is not already scheduled: Please call [facility] to make a follow-up appointment for 2 weeks after your surgery at . Current Hospital Diet Patient's current hospital diet: Diabetes Type 1 Diet Discharge Diet Recommended Diet: Diabetes Type 1 Diet Procedures Procedures Performed: Right total knee arthroplasty-cemented Pending Studies Studies pending at discharge: no Medical Emergencies . Who to Call and When: Medical Emergencies: If at any time you feel your situation is an emergency, please call 911 immediately. . Non-Emergent Contact Non-Emergency issues call your: Surgeon Call Non-Emergent contact if: temperature is above 101.5, your pain is not controlled, wound has increased drainage, wound has increased redness . "Provider Documentation" section prepared by Lino Lew PA-C. . Looping Machine Operator Recommendations Looping Machine Operator Recommendations: Looping Machine Operator Recommendations Date of Service Nov 22, 2016. Looping Machine Operator Recommendations PT SHOULD CONTINUE WITH ALL HIS CARDIAC MEDS NO EVIDENCE OF ANY CARDIAC COMPROMISE DURING THIS ADMISSION BRIEF EPISODE OF DIZZY SPELL AND CHEST HEAVINESS POSSIBLE DUE TO VASOVAGAL DUE TO KNEE PAIN WHILE DOING EXERCISE AND INCREASED TEMP IN ROOM SYMPTOM HAS RESOLVED SPONTANEOUSLY WITHOUT SL NITRO EKG , CARDIAC MARKERS , LAB WORK -WITH IN NORMAL LIMITS STABLE TO BE DISCHARGED HOME TODAY HAS OFFICE VISIT SCHEDULED WITH HIS INVESTMENT RECOVERY TECHNICIAN 12/01/2016 1:45 PM Joe Bermudez PA-C Cardiology, [facility] PT IS ASKED TO DISCUSS HIS SYMPTOM WITH CARDIOLOGY VISIT AND DISCUSS POSSIBLE NEED TO REPEAT CARDIAC STRESS TEST HIS LAST STRESS TEST WAS ON NOV 2015 -WAS NORMAL VTE Core Measure Inpt VTE Proph given/why not?: Other Anticoagulation (Plavix and ASA), T.E.D. Stockings, SCD's [place] Drug Monitoring Program Search Results: patient reviewed within database, no issues identified
[2016-11-21] MEDS: OXYCODONE HCL IR 5 MG TAB (IMMEDIATE RELEASE) PO PRN (08:25)
[2016-11-21] MEDS: FERROUS GLUCONATE 324 MG TAB PO SCH ×3 (08:26→18:28)
[2016-11-21] MEDS: DOCUSATE SODIUM 100 MG CAP PO SCH ×2 (08:27→22:27)
[2016-11-21] MEDS: MULTIVITAMIN TAB PO SCH (08:28)
[2016-11-21] MEDS: PANTOprazole SOD 40 MG TAB PO SCH (08:28)
[2016-11-21] MEDS: LISINOPRIL 2.5 MG TAB PO SCH (08:28)
[2016-11-21] MEDS: ASPIRIN 81 MG ECTAB PO SCH (08:28)
[2016-11-21] MEDS: METOPROLOL SUCC 50MG EXT REL TAB PO SCH (08:28)
[2016-11-21] MEDS: CLOPIDOGREL BISULFATE 75 MG TAB PO SCH (08:28)
[2016-11-21] MEDS: ATORVASTATIN 40 MG TAB PO SCH (08:28)
--- NOTE | 2016-11-21 08:29 | Anesthesiology Progress Note ---
Anesthesia Post Op Note Date & Time Nov 21, 2016 at 08:28 Vital Signs Pain Intensity: 0.0 Vital Signs Past 12 Hours Date Time Temp Pulse Resp B/P (MAP) Pulse Ox O2 Delivery O2 Flow Rate FiO2 11/21/16 07:50 36.6 71 18 148/81 (103) 95 Room Air 11/21/16 07:30 Room Air 11/21/16 04:25 36.8 77 16 129/77 (94) 94 Room Air 11/21/16 00:10 Room Air 11/20/16 23:40 36.9 77 16 130/74 (92) 94 Room Air Notes Mental Status: alert / awake / arousable, participated in evaluation Pt Amnestic to Procedure: Yes Nausea / Vomiting: adequately controlled Pain: adequately controlled Airway Patency, RR, SpO2: stable & adequate BP & HR: stable & adequate Hydration State: stable & adequate Anesthetic Complications: no major complications apparent
--- NOTE | 2016-11-21 10:22 | Pharmacy Progress Note ---
Glycemic Control Progress Note Date of Service Nov 21, 2016. Scope Glycemic Pharmacist consulted for glycemic control to write orders per [facility] inpatient glycemic control protocol. Objective Accuchecks BSG (last 24hrs): Test 11/20/16 12:44 11/20/16 15:12 11/20/16 16:15 11/20/16 17:15 Bedside Glucose 325 mg/dl (70-99) 290 mg/dl (70-99) 308 mg/dl (70-99) 253 mg/dl (70-99) Test 11/20/16 17:45 11/20/16 18:16 11/20/16 19:26 11/20/16 20:20 Bedside Glucose 237 mg/dl (70-99) 227 mg/dl (70-99) 210 mg/dl (70-99) 207 mg/dl (70-99) Test 11/20/16 20:40 11/20/16 21:41 11/21/16 00:14 11/21/16 04:14 Random Glucose 188 mg/dl (70-99) Bedside Glucose 157 mg/dl (70-99) 190 mg/dl (70-99) 259 mg/dl (70-99) Test 11/21/16 06:24 11/21/16 08:09 Random Glucose 223 mg/dl (70-99) Bedside Glucose 192 mg/dl (70-99) Recent Pertinent Medications The patient is currently receiving: * Basal insulin: Lantus 50 units x 1 last night * Correctional Insulin: Novolog Correction per scale ACHS Goal Range: Low 110 mg/dL - High 140 mg/dL Correction Factor: 10 mg/dL/unit * Prandial insulin: Per carb ratio of 1 unit per 4 grams CHO consumed Outpatient Anti-Diabetic Meds Oral Agents Basal Insulin Bolus Insulin Assessment & Plan ASSESSMENT: * See progress note from 11/20/16 for more background info, in short: * Pt receiving SQ basal bolus insulin regimen for hyperglycemia secondary to baseline DM (outpatient regimen on hold), recent surgery, steroids * Plan yesterday was insulin drip through the evening, followed by aggressive SQ basal/bolus regimen * BSGs >200 this AM and patient to receive Dexamethasone 10 mg IV X 1 * Tighten regimen due to IV steroid bolus * Give extra Lantus 50 units X 1 this AM-- plan will be 100 units total today compared to 75 units as outpatient * Tighten Novolog to home regimen for now, loosen when steroid effects dissipate PLAN FOR INPATIENT GLYCEMIC CONTROL: * Oral Agents * Continue to hold outpatient oral diabetes medications. * Basal insulin * Lantus 50 units SQ BID, transition to 75 units HS tomorrow 11/22 * Bolus insulin * NovoLog per scale ACHS + 00,04 checks * Goal Range: Low 110 mg/dL - High 140 mg/dL * Correction Factor: 5 mg/dL/unit * Nutritional / Prandial insulin per carb ratio of 1 unit per 2 grams CHO consumed * Please note that the plan above was derived based on current level of insulin resistance and hospital stress. These recommendations are appropriate for inpatient admission only. Plan of care upon discharge will need to be reassessed to avoid potential outpatient hypo/hyperglycemia. Thank you.
[2016-11-21 11:26] VITALS: BP 142/75; PULSE 75; TEMP 36.8; O2SAT 95
[2016-11-21 15:20] VITALS: BP 133/76; PULSE 78; TEMP 36.8; O2SAT 97
--- NOTE | 2016-11-21 16:27 | Progress Note ---
Internal Med Progress Note Date of Service: Nov 21, 2016. Provider Documentation: SUBJECTIVE: offers no complain has minimum pain in rt knee has been walking well , no pain or discomfort thinks his blood sugar will be lot better at home -when no steroid will be in scenarios and he can adjust his own insulin OBJECTIVE: Vital Signs-as noted below Exam: General-no sign of distress Eyes-sclera non icteric ENT-NAd Neck-no JVD Lungs-CTA Heart-regular s1/S2 Abdomen-soft, non tender Extremities-no lower ext edema ; s/p rt tka , drain present Neuro-AAO x3, no focal deficit Lab data as noted below. ASSESSMENT & PLAN: S/P RIGHT RKA - POD#1 - activity and wound care orders as per ortho - - cont PT/OT DM - hgb a1c 7.1 07/2016 -shows well control at baseline - requires high dose of Lantus 75 U at HS and Novolog - metformin has been on hold since admission -cont insulin SSI and Basal Lantus ; required brief episode of iv insulin infusion for marked hyperglycemia post op /given IV steroid -appreciate pharmacy input for glycemic management -BSG much improved after adjustment of basal Lantus and sliding scale CAD - stable, - continue ASA, Plavix, beta ozzie, and statin HTN - BP controlled, continue metoprolol and lisinopril DVT PROPHYLAXIS - ASA +TEDs/SCDs per surgery DISPOSITION : per primary team Vital Signs: Date Time Temp Pulse Resp B/P (MAP) Pulse Ox O2 Delivery O2 Flow Rate FiO2 11/21/16 15:30 Room Air 11/21/16 15:20 36.8 78 20 133/76 (95) 97 Room Air 11/21/16 11:26 36.8 75 18 142/75 (97) 95 Room Air 11/21/16 07:50 36.6 71 18 148/81 (103) 95 Room Air 11/21/16 07:30 Room Air 11/21/16 04:25 36.8 77 16 129/77 (94) 94 Room Air 11/21/16 00:10 Room Air 11/20/16 23:40 36.9 77 16 130/74 (92) 94 Room Air 11/20/16 19:28 36.6 81 17 100/61 (74) 94 Room Air Lab Results: Results Past 24 Hours Test 11/20/16 17:45 11/20/16 18:16 11/20/16 19:26 11/20/16 20:20 Range/Units Bedside Glucose 237 227 210 207 70-99 mg/dl Test 11/20/16 20:40 11/20/16 21:41 11/21/16 00:14 11/21/16 04:14 Range/Units Sodium Level 135 136-145 mmol/L Potassium Level 4.2 3.5-5.1 mmol/L Chloride Level 102 98-107 mmol/L Carbon Dioxide Level 26 21-32 mmol/L Anion Gap 7.0 3-11 mmol/L Blood Urea Nitrogen 21 7-18 mg/dl Creatinine 1.40 0.60-1.40 mg/dl Est Creatinine Clear Calc Drug Dose 84.0 ml/min Estimated GFR () 66.5 Estimated GFR (Non- 57.4 BUN/Creatinine Ratio 14.8 10-20 Random Glucose 188 70-99 mg/dl Calcium Level 8.7 8.5-10.1 mg/dl Bedside Glucose 157 190 259 70-99 mg/dl Test 11/21/16 06:24 11/21/16 08:09 11/21/16 12:25 11/21/16 17:15 Range/Units White Blood Count 25.36 4.8-10.8 K/uL Red Blood Count 4.07 4.7-6.1 M/uL Hemoglobin 12.0 14.0-18.0 g/dL Hematocrit 36.4 42-52 % Mean Corpuscular Volume 89.4 80-100 fL Mean Corpuscular Hemoglobin 29.5 25-34 pg Mean Corpuscular Hemoglobin Concent 33.0 32-36 g/dl RDW Standard Deviation 46.4 36.4-46.3 fL RDW Coefficient of Variation 14.2 11.5-14.5 % Platelet Count 346 130-400 K/uL Mean Platelet Volume 9.1 7.4-10.4 fL Sodium Level 138 136-145 mmol/L Potassium Level 4.4 3.5-5.1 mmol/L Chloride Level 106 98-107 mmol/L Carbon Dioxide Level 25 21-32 mmol/L Anion Gap 7.0 3-11 mmol/L Blood Urea Nitrogen 20 7-18 mg/dl Creatinine 1.00 0.60-1.40 mg/dl Est Creatinine Clear Calc Drug Dose 117.6 ml/min Estimated GFR () 99.8 Estimated GFR (Non- 86.2 BUN/Creatinine Ratio 20.4 10-20 Random Glucose 223 70-99 mg/dl Calcium Level 8.3 8.5-10.1 mg/dl Hepatitis C Antibody Screen NEG NEG Bedside Glucose 192 207 205 70-99 mg/dl
[2016-11-21] MEDS: TAMSULOSIN HCL 0.4 MG CAP PO SCH (22:27)
[2016-11-21 22:52] VITALS: BP 122/68; PULSE 68; TEMP 36.6; O2SAT 97
[2016-11-22] VITALS (10 sets, daily range): BP systolic 92–138; BP diastolic 60–84; PULSE 63–83; TEMP 36.8–37.2; O2SAT 95–100
[2016-11-22] MEDS: INSULIN ASPART 100 UNITS/ML 3 ML PEN SC SCH ×6 (04:00→21:40)
[2016-11-22] MEDS: ACETAMINOPHEN 500 MG TAB PO SCH ×3 (06:38→21:42)
[2016-11-22] MEDS ORDERED: NITROGLYCERIN 0.4 MG SL PER TAB CHARGE SL STA (08:23)
[2016-11-22] MEDS ORDERED: NITROGLYCERIN 0.4 MG SL PER TAB CHARGE SL PRN (08:30)
[2016-11-22] MEDS: PANTOprazole SOD 40 MG TAB PO SCH (08:57)
[2016-11-22] MEDS: FERROUS GLUCONATE 324 MG TAB PO SCH ×3 (08:57→18:48)
[2016-11-22] MEDS: MULTIVITAMIN TAB PO SCH (08:57)
[2016-11-22] MEDS: LISINOPRIL 2.5 MG TAB PO SCH (08:57)
[2016-11-22] MEDS: METOPROLOL SUCC 50MG EXT REL TAB PO SCH (08:57)
[2016-11-22] MEDS: ATORVASTATIN 40 MG TAB PO SCH (08:57)
[2016-11-22] MEDS: DOCUSATE SODIUM 100 MG CAP PO SCH ×2 (08:58→21:41)
[2016-11-22] MEDS: CLOPIDOGREL BISULFATE 75 MG TAB PO SCH (08:58)
[2016-11-22] MEDS: ASPIRIN 81 MG ECTAB PO SCH (08:58)
--- NOTE | 2016-11-22 08:58 | Orthopedic Progress Note ---
Orthopedic Progress Note Date of Service Nov 22, 2016. Subjective Post OP Day: 2 Reports: feeling well (Pt lying in bed, apparently just had episode of lightheadedness/dizziness, clinical dietetic technician doing EKG) Objective calves soft nontender, N/V intact, dressing C/D/I, toes mobile Date Time Temp Pulse Resp B/P (MAP) Pulse Ox O2 Delivery O2 Flow Rate FiO2 11/22/16 08:18 63 97 Room Air 11/22/16 08:13 76 117/71 (86) 11/22/16 07:08 36.8 70 19 126/76 (93) 98 Room Air 11/22/16 00:35 Room Air 11/21/16 22:52 36.6 68 18 122/68 (86) 97 Room Air 11/21/16 15:30 Room Air 11/21/16 15:20 36.8 78 20 133/76 (95) 97 Room Air 11/21/16 11:26 36.8 75 18 142/75 (97) 95 Room Air Laboratory Results 24 Hours: Test 11/22/16 08:23 Assessment & Plan Assessment: 51 yo male stable POD #2 s/p right TKA, episode of lightheadedness/dizziness this AM, EKG pending Plan: 1. Med management 2. DVT prophylaxis- resume Plavix and ASA, SCDs 3. PT/OT 4. D/C planning- home w/ OPPT today if labs/EKG normal
[2016-11-22] MEDS ORDERED: RXC5 PO (09:00)
[2016-11-22] MEDS ORDERED: ACET-24 PO (09:00)
[2016-11-22] MEDS ORDERED: ONDA8TAB12 PO (09:00)
[2016-11-22] MEDS: OXYCODONE HCL IR 5 MG TAB (IMMEDIATE RELEASE) PO PRN ×3 (09:05→18:47)
[2016-11-22 09:20] LABS: HEMATOCRIT 34.1 % (42-52); MEAN CELL VOLUME 89.7 fL (80-100); MEAN CORPUSCULAR HEMOGLOBIN 28.9 pg (25-34); MEAN PLATELET VOLUME 9.1 fL (7.4-10.4); PLATELET COUNT 322 K/uL (130-400); WHITE BLOOD COUNT 19.01 K/uL (4.8-10.8)
[2016-11-22 09:22] LABS: MEAN CORPUSCULAR HGB CONC 32.3 g/dl (32-36)
[2016-11-22 09:44] LABS: BLOOD UREA NITROGEN 20 mg/dl (7-18); BUN/CREATININE RATIO 19.9 (10-20); CALCIUM 8.2 mg/dl (8.5-10.1); CARBON DIOXIDE 27 mmol/L (21-32); CHLORIDE 105 mmol/L (98-107); CKMB/CK RATIO 1.3 (0-3.0); GLUCOSE 212 mg/dl (70-99); POTASSIUM 4.1 mmol/L (3.5-5.1); SODIUM 139 mmol/L (136-145)
--- NOTE | 2016-11-22 10:03 | Consultant Recommendations ---
Information Technology Architect Recommendations Date of Service Nov 22, 2016. Information Technology Architect Recommendations PT SHOULD CONTINUE WITH ALL HIS CARDIAC MEDS NO EVIDENCE OF ANY CARDIAC COMPROMISE DURING THIS ADMISSION BRIEF EPISODE OF DIZZY SPELL AND CHEST HEAVINESS POSSIBLE DUE TO VASOVAGAL DUE TO KNEE PAIN WHILE DOING EXERCISE AND INCREASED TEMP IN ROOM SYMPTOM HAS RESOLVED SPONTANEOUSLY WITHOUT SL NITRO EKG , CARDIAC MARKERS , LAB WORK -WITH IN NORMAL LIMITS STABLE TO BE DISCHARGED HOME TODAY HAS OFFICE VISIT SCHEDULED WITH HIS PIE DOUGH ROLLER 12/01/2016 1:45 PM Joe Bermudez PA-C Cardiology, [facility] PT IS ASKED TO DISCUSS HIS SYMPTOM WITH CARDIOLOGY VISIT AND DISCUSS POSSIBLE NEED TO REPEAT CARDIAC STRESS TEST HIS LAST STRESS TEST WAS ON NOV 2015 -WAS NORMAL
--- NOTE | 2016-11-22 10:09 | Progress Note ---
Internal Med Progress Note Date of Service: Nov 22, 2016. Provider Documentation: SUBJECTIVE: feels fine now had brief episode of lightheadedness , dizzy spell , transient chest heaviness this AM pt mentions he was trying to do his leg exercises as instructed by PT , his left knee felt very stiff he was on the edge of bed and leaning forward trying to lift his left leg earlier his room temp was set to 77 degree's as he was feeling cold overnight with is attempt to lean forward and and lift his leg -felt dizzy , lightheaded , very warm ( room temp was bothering him ) felt heaviness is mid chest , no nausea or syncope he laid back in bed , rang for the nurse in few seconds his symptom subsided refused to have SL nitro as it gives him headache few minutes later he felt fine , during my interview -he had no symptom , able to be OOB , walk in room with walker with out complain of SOB , MORE , dizzy spell possible vaso vagal episode due to pain in left knee /warm room temp spontaneous resolution no further work up necessary stable to be discharged home OBJECTIVE: Vital Signs-as noted below Exam: General-no sign of distress Eyes-sclera non icteric ENT-NAd Neck-no JVD Lungs-CTA Heart-regular s1/S2 Abdomen-soft, non tender Extremities-no lower ext edema ; s/p rt tka , drain removed , Neuro-AAO x3, no focal deficit Lab data as noted below. ASSESSMENT & PLAN: S/P RIGHT RKA - POD# 2 doing well post op , drain removed stat CBC today shows stable Hb evaluated by Orthopedics this AM Aspirin , Plavix resumed stable to be discharged home today with out pt Physical therapy EPISODE OF DIZZY SPELL AND LIGHTHEADEDNESS: symptom suggestive of vasovagal syncope -transient dizzy spell /lightheadedness due to pain /and increased temp in room stat EKG no change /no evidence of ischemia stat lab shows stable H&H , no evidence of post op anemia troponin/CKMB -wnl , mild elevation of CK possible to due to recent L TKA status stable to be discharged home today no further cardiac work up needed schedule to have Cardiology follow up on 12/01/16 DM TYPE 2 - hgb a1c 7.1 07/2016 -shows well control at baseline - requires high dose of Lantus 75 U at HS and Novolog - metformin has been on hold since admission -cont insulin SSI and Basal Lantus ; required brief episode of iv insulin infusion for marked hyperglycemia post op /given IV steroid -appreciate pharmacy input for glycemic management -BSG much improved after adjustment of basal Lantus and sliding scale -pt will be discharged home today with his out pt diabetic regimen CAD hx of acute inf MT in 2004 with PTCA with BARI at proximal mid CAD repeat cardiac cath in [facility] showed diffuse CAD s/p 2 overlapping BARI at the mid circumflex artery Exercise stress ECHO on Oct -stress ECHO is negative for stress induced ischemia , EF 55-60 % stable form cardiac stand point , brief episode of dizzy spell possible due to vaso vagal -no evidence of angina pt will be continued with Aspirin , Plavix , Beta ozzie Toprol XL 50 mg - continue ASA, Plavix, beta ozzie( Toprol XL 50 mg daily ) , statin ( Lipitor 40 mg daily ) , Lisinopril 2.5 mg daily scheduled for 6 months follow with Cardiology on 12/01/2016 1:45 PM Joe Bermudez PA-C Cardiology, [facility] HTN - BP controlled, continue metoprolol and lisinopril DVT PROPHYLAXIS - ASA + PLAVIX TEDs/SCDs per surgery DISPOSITION : Medically stable to be discharged home today Vital Signs: Date Time Temp Pulse Resp B/P (MAP) Pulse Ox O2 Delivery O2 Flow Rate FiO2 11/22/16 08:18 63 97 Room Air 11/22/16 08:13 76 117/71 (86) 11/22/16 07:08 36.8 70 19 126/76 (93) 98 Room Air 11/22/16 00:35 Room Air 11/21/16 22:52 36.6 68 18 122/68 (86) 97 Room Air 11/21/16 15:30 Room Air 11/21/16 15:20 36.8 78 20 133/76 (95) 97 Room Air 11/21/16 11:26 36.8 75 18 142/75 (97) 95 Room Air Lab Results: Results Past 24 Hours Test 11/21/16 12:25 11/21/16 17:15 11/21/16 21:53 11/22/16 00:09 Range/Units Bedside Glucose 207 205 176 162 70-99 mg/dl Test 11/22/16 04:15 11/22/16 08:09 11/22/16 09:08 Range/Units Bedside Glucose 112 114 70-99 mg/dl White Blood Count 19.01 4.8-10.8 K/uL Red Blood Count 3.80 4.7-6.1 M/uL Hemoglobin 11.0 14.0-18.0 g/dL Hematocrit 34.1 42-52 % Mean Corpuscular Volume 89.7 80-100 fL Mean Corpuscular Hemoglobin 28.9 25-34 pg Mean Corpuscular Hemoglobin Concent 32.3 32-36 g/dl RDW Standard Deviation 47.3 36.4-46.3 fL RDW Coefficient of Variation 14.5 11.5-14.5 % Platelet Count 322 130-400 K/uL Mean Platelet Volume 9.1 7.4-10.4 fL Sodium Level 139 136-145 mmol/L Potassium Level 4.1 3.5-5.1 mmol/L Chloride Level 105 98-107 mmol/L Carbon Dioxide Level 27 21-32 mmol/L Anion Gap 7.0 3-11 mmol/L Blood Urea Nitrogen 20 7-18 mg/dl Creatinine 1.00 0.60-1.40 mg/dl Est Creatinine Clear Calc Drug Dose 117.6 ml/min Estimated GFR () 99.8 Estimated GFR (Non- 86.2 BUN/Creatinine Ratio 19.9 10-20 Random Glucose 212 70-99 mg/dl Calcium Level 8.2 8.5-10.1 mg/dl Total Creatine Kinase 676 39-308 U/L Creatine Kinase MB 9.0 0.5-3.6 ng/ml Creatine Kinase MB Ratio 1.3 0-3.0 Troponin I < 0.015 0-0.045 ng/ml
[2016-11-22] MEDS ORDERED: SODIUM CHLORIDE 0.9% 1000ML 1,000 ML IV SCH (14:00)
--- NOTE | 2016-11-22 15:13 | Progress Note ---
Progress Note Date of Service Nov 22, 2016. Progress Note Prior to discharge -pt got dizzy and lightheaded while ambulating found to be hypotensive BP 92/60 orthostatic vitals shows drop in BP from sitting to standing ordered for IV fluids check orthostatic vitals hold discharge home today
[2016-11-22] MEDS ORDERED: INSULIN GLARGINE SOLOSTAR 100 UNITS/ML 3 ML PEN SC SCH (21:00)
[2016-11-22] MEDS: TAMSULOSIN HCL 0.4 MG CAP PO SCH (21:41)
[2016-11-23] MEDS: OXYCODONE HCL IR 5 MG TAB (IMMEDIATE RELEASE) PO PRN ×3 (01:22→13:25)
[2016-11-23] MEDS: ACETAMINOPHEN 500 MG TAB PO SCH ×2 (06:19→13:26)
[2016-11-23 07:00] VITALS: BP_SYST 107; BP_SYST 109; BP_SYST 150; BP_DIAS 69; BP_DIAS 71; BP_DIAS 73; PULSE 89; TEMP 36.9; O2SAT 97
[2016-11-23] MEDS: FERROUS GLUCONATE 324 MG TAB PO SCH ×2 (08:32→13:14)
[2016-11-23] MEDS: ATORVASTATIN 40 MG TAB PO SCH (08:32)
[2016-11-23] MEDS: ASPIRIN 81 MG ECTAB PO SCH (08:32)
[2016-11-23] MEDS: DOCUSATE SODIUM 100 MG CAP PO SCH (08:32)
[2016-11-23] MEDS: MULTIVITAMIN TAB PO SCH (08:33)
[2016-11-23] MEDS: CLOPIDOGREL BISULFATE 75 MG TAB PO SCH (08:33)
[2016-11-23] MEDS: PANTOprazole SOD 40 MG TAB PO SCH (08:33)
[2016-11-23 08:39] VITALS: BP 151/82; PULSE 84
[2016-11-23] MEDS: INSULIN ASPART 100 UNITS/ML 3 ML PEN SC SCH ×2 (08:40→13:24)
--- NOTE | 2016-11-23 08:40 | Orthopedic Progress Note ---
Orthopedic Progress Note Date of Service Nov 23, 2016. Subjective Post OP Day: 3 Reports: feeling well (Pt still with orthostatic hypotension this AM) Objective calves soft nontender, N/V intact, dressing C/D/I, toes mobile Date Time Temp Pulse Resp B/P (MAP) Pulse Ox O2 Delivery O2 Flow Rate FiO2 11/23/16 07:20 Room Air 11/23/16 07:00 36.9 89 19 150/73 (98) 97 Room Air 107/71 (83) 109/69 (82) 11/23/16 00:50 Room Air 11/22/16 23:20 37.1 83 18 138/84 (102) 100 Room Air 11/22/16 18:27 76 119/76 (90) 79 111/75 (87) 11/22/16 16:00 Room Air 11/22/16 15:32 37.2 63 18 116/64 (81) 95 Room Air 11/22/16 13:32 92/60 (71) 11/22/16 13:23 128/78 (95) 110/68 (82) 11/22/16 10:00 77 16 132/77 (95) 96 Room Air Laboratory Results 24 Hours: Test 11/22/16 09:08 Hematocrit 34.1 % Hemoglobin 11.0 g/dL Assessment & Plan Assessment: 51 yo male stable POD #3 s/p right TKA, continued orthostatic hypotension Plan: 1. Med management 2. DVT prophylaxis- resume Plavix and ASA, SCDs 3. PT/OT 4. D/C planning- home w/ OPPT today if orthostatic hypotension improves
[2016-11-23 11:04] VITALS: BP 147/76; PULSE 73
[2016-11-23] MEDS: LISINOPRIL 2.5 MG TAB PO SCH (11:04)
[2016-11-23] MEDS: METOPROLOL SUCC 50MG EXT REL TAB PO SCH (11:04)
[2016-11-23] MEDS ORDERED: SODIUM CHLORIDE 0.9% 1000ML 1,000 ML IV SCH (13:00)
[2016-11-23 13:37] VITALS: BP_SYST 133; BP_SYST 151; BP_DIAS 68; BP_DIAS 71; BP_DIAS 77
[2016-11-23 13:55] VITALS: BP 133/71; PULSE 73; TEMP 36.9; O2SAT 97
--- NOTE | 2016-12-03 23:26 | DISCHARGE SUMMARY ---
CHIEF COMPLAINT: Right knee pain. HISTORY OF PRESENT ILLNESS: Please see complete history and physical examination. HOSPITAL COURSE: The patient underwent right total knee arthroplasty without complication. He tolerated the procedure well and was discharged to recovery room in stable condition. His postoperative course was relatively uneventful. His postoperative pain was reasonably well controlled with a combination of spinal anesthesia, adductor canal block, intraoperative joint injection, IV, and oral pain medications. He was resumed on his normal Plavix and aspirin medications postoperatively for DVT prophylaxis. He also utilized RAY stockings and SCDs for additional prophylaxis. His H&H were stable and did not require transfusion. He did have a few episodes of postoperative hypotension as well as vasovagal type episodes. A medical consult was asked for. He had labs drawn to rule out a cardiac cause and these were negative. This resolved with a little bit of time and fluid management. His surgical drain was discontinued on postoperative day 2, his surgical dressing will remain in place for approximately 7 days postoperative. He tolerated physical therapy reasonably well as he was ambulating and bending his knee appropriately. He was discharged home on postoperative day 3. He will continue his physical therapy as an outpatient. He will continue his normal Plavix and aspirin use and follow up in our office in approximately 10-14 days for his initial postop evaluation.
== END 2016-11-23 14:43 | disposition home or self-care (01) | DRG 470 ==
LOC: C.ACU 05:14 → C.MSW 09:29 → ENRESERV 09:58
PROC: 0SRC0JA Replacement of Right Knee Joint with Synthetic Substitute, Uncemented, Open Approach (ICD-10-PCS; principal; 2016-11-20 07:45)
DX: M17.11 Unilateral primary osteoarthritis, right knee (principal); Z68.41 Body mass index [BMI] 40.0-44.9, adult; M21.161 Varus deformity, not elsewhere classified, right knee; I95.1 Orthostatic hypotension; E11.65 Type 2 diabetes mellitus with hyperglycemia; T38.0X5A Adverse effect of glucocorticoids and synthetic analogues, initial encounter; I10 Essential (primary) hypertension; I25.10 Atherosclerotic heart disease of native coronary artery without angina pectoris; E78.00 Pure hypercholesterolemia, unspecified; E66.9 Obesity, unspecified; I25.2 Old myocardial infarction; Z87.891 Personal history of nicotine dependence; Z95.5 Presence of coronary angioplasty implant and graft; Z79.02 Long term (current) use of antithrombotics/antiplatelets; Z79.82 Long term (current) use of aspirin; Z79.84 Long term (current) use of oral hypoglycemic drugs; Z79.899 Other long term (current) drug therapy

== ENCOUNTER 2021-12-23 08:53 | Observation (INO) ==
[2021-12-23] MEDS ORDERED: NITROGLYCERIN 2% OINTMENT 30GM TUBE EXT STA (09:24)
--- NOTE | 2021-12-23 09:33 | Emergency Department Note ---
Impression & Plan Precordial chest pain, SOB (shortness of breath), Abnormal stress test ED Provider Note NAME: SANJEEV BOYCE AGE: 56 SEX: M : 1965 ARRIVES VIA: Walk-In INFORMANT: [Patient] ED PROVIDER(S): [Ishmael White MD] CHIEF COMPLAINT: Chest pain HISTORY OF PRESENT ILLNESS: The patient is a 56-year-old male who presents to the ER with chest discomfort that went to his jaw. He was short of breath. His chest felt heavy and the pain was a 5/10. He was watching TV when this began. No sweating, no nausea. The pain lasted for about an hour before subsiding, he did not take any nitroglycerin. The patient had an ECG recently that showed a change from the one prior. He had a stress test on the , a week and a half ago, it showed a "blockage". The patient is set up for cardiac catheterization although, it is not yet scheduled. Patient has a history of MD with 4 coronary stents. He currently is complaining of a very mild amount of chest discomfort, the jaw pain and shortness of breath have resolved. REVIEW OF SYSTEMS: See HPI for pertinent positives and negatives. A total of ten systems were reviewed and were otherwise negative. PMHx/PSHx: See Below SOCIAL HISTORY: See Below. PHYSICAL EXAM: GENERAL: Patient is in no acute distress. HEENT: No acute trauma, normocephalic atraumatic, mucous membranes moist, no nasal congestion, no scleral icterus. NECK: No stridor, no adenopathy, no meningismus, trachea is midline. LUNGS: Clear to auscultation bilaterally, no wheeze, no rhonchi, breath sounds equal. HEART: No murmurs, regular rhythm with an occasional extra beat. ABDOMEN: Soft, nontender, bowel sounds positive, no peritonitis. EXTREMITIES: No cyanosis, mild bilateral pedal edema, full range of motion of all the joints without pain or difficulty, no signs for acute trauma. NEUROLOGIC: Oriented x 3, no acute motor or sensory deficits, no focal weakness. SKIN: No rash, no jaundice, no diaphoresis. DIFFERENTIAL DIAGNOSIS: Cardiac ischemia, aortic dissection, pulmonary embolism, pneumothorax, pneumonia, pericarditis, myocarditis, esophageal rupture, GERD, cholecystitis, pancreatitis, musculoskeletal, as well as other pathologies. EMERGENCY DEPARTMENT COURSE/PROCEDURES: ECG: Indication was chest pain. The ECG shows a normal sinus rhythm with a rate of 70. There is some T wave flattening with some subtle T wave inversion in the inferior leads. There is no ST elevation. No PVCs. The QTc is 464. Compared to an ECG from 22 November 2016, I see no significant change. Continuous Cardiac Monitoring: An order was placed for continuous cardiac monitoring. The monitor shows a rate of 63 with normal sinus rhythm. MEDICAL DECISION MAKING: There is a mild leukocytosis which could be consistent with infection or just the stress of his presentation. There is a normal hemoglobin. Platelet count was slightly high at 419. No coagulopathy. No renal failure or significant electrolyte abnormality in need of emergent correction. No concerning liver enzyme elevation. ECG shows a normal sinus rhythm, no obvious acute ischemia. Cardiac enzyme testing x1 is not consistent with acute cardiac injury. No evidence for pancreatitis by our testing. COVID test returned negative. Chest x-ray does not show pneumonia or CHF. The patient presents with precordial chest pain which radiated to his jaw. He recently failed an outpatient stress test. He has known coronary disease. Patient was given 1 inch of nitroglycerin paste. He is currently resting comfortably. I did speak with cardiology. The patient is to be hospitalized for further work-up and likely a cardiac catheterization tomorrow. I did speak with the patient at length, I talked to the case assembler. The on- call hospitalist was consulted. Past Med/Surg History Medical History Acquired renal cyst Allergic rhinitis CAD (coronary artery disease) "2004 - inferior wall MD, s/p BARI to proximal mid RCA 08/2011 - BARI x 2 to mid left circumflex 10/2011 - cath negative for stent restenosis, showed diffuse minor luminal irregularities 09/2012 - cath showed nonobstructive CAD with patent stents" On 11/20/16 13:28 Cecelia Humphrey wrote "2004 - inferior wall MD, s/p BARI to proximal mid RCA " Calculus of kidney Deviated septum Diastolic heart failure DM type 2 (diabetes mellitus, type 2) Hidradenitis suppurativa HTN (hypertension) Hypertrophy of both inferior nasal turbinates Neuroendocrine cancer Renal cell carcinoma Sleep apnea Surgical History H/O hernia repair H/O knee surgery H/O splenectomy History of cardiac catheterization multiple History of nasal septoplasty History of nephrectomy renal cryoablation History of partial pancreatectomy S/P nasal surgery Family History Grandmother Cardiac disorder Unknown Breast cancer Aunt Cardiac disorder Denies family history of Prostate cancer Social History Smoking Status: Former smoker Hx Alcohol Use: Yes Hx Substance Use: No Preferred Language: Arabic Communication Ability: Effective current occupational status: employed 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 Feels Safe at Home: Yes Allergies Allergies Allergy/AdvReac Type Severity Reaction Status Date / Time No Known Allergies Allergy Unverified 11/25/18 09:10 Home Meds Home Medications Medication Instructions Recorded Confirmed aspirin 81 mg tablet 81 mg PO DAILY 11/25/18 12/23/21 atorvastatin 40 mg tablet 40 mg PO DAILY 11/25/18 12/23/21 clopidogrel 75 mg tablet 75 mg PO DAILY 11/25/18 12/23/21 fluticasone propionate 50 2 spray intranasal BID #1 g 11/25/18 12/23/21 mcg/actuation nasal spray,suspension insulin aspart U-100 100 unit/mL See Rx Instructions .Route .COMPLEX 11/25/18 12/23/21 subcutaneous solution insulin glargine 100 unit/mL 50 unit subcut HS 11/25/18 12/23/21 subcutaneous solution metformin 1,000 mg tablet 1,000 mg PO BID 11/25/18 12/23/21 metoprolol succinate 50 mg 75 mg PO DAILY 11/25/18 12/23/21 tablet,extended release 24 hr nitroglycerin 0.4 mg sublingual 0.4 mg sublingual Q5M PRN Chest 11/25/18 12/23/21 tablet Pain omega-3 acid ethyl esters 1 gram 1 cap PO DAILY 11/25/18 12/23/21 capsule tamsulosin 0.4 mg capsule 0.4 mg PO HS #90 caps 11/25/18 12/23/21 azelastine 137 mcg (0.1 %) nasal 2 sprays intranasal BID 12/23/21 12/23/21 spray aerosol furosemide 20 mg tablet 20 mg PO DAILY 12/23/21 12/23/21 lisinopril 10 mg tablet 10 mg PO DAILY 12/23/21 12/23/21 Results & Data (ED) Vital Signs Vital Signs - 24 hr 12/23/21 08:55 12/23/21 09:37 12/23/21 09:37 Temperature 36.8 C Temperature Source Temporal Artery Scan Pulse Rate 63 Pulse Rate [Right Finger] Pulse Rhythm [Right Finger] Pulse Strength [Right Finger] Respiratory Rate 18 Respiratory Effort / Characteristics Respiratory Depth Respiratory Pattern Blood Pressure 159/85 H Blood Pressure [Right Radial Artery] Blood Pressure Mean 109 Blood Pressure Mean [Right Radial Artery] Blood Pressure Position [Right Radial Artery] Pulse Oximetry 97 Oxygen Delivery Method Room Air Room Air Room Air Sepsis Recent Fever Within 48 Hours No Sepsis New/Unexplained Change in Mental Status No Sepsis Action Taken by Nursing No Action Required 12/23/21 10:00 Temperature Temperature Source Pulse Rate Pulse Rate [Right Finger] 65 Pulse Rhythm [Right Finger] Regular Pulse Strength [Right Finger] Normal Respiratory Rate 18 Respiratory Effort / Characteristics Non-Labored Respiratory Depth Normal Respiratory Pattern Regular Blood Pressure Blood Pressure [Right Radial Artery] 165/73 H Blood Pressure Mean Blood Pressure Mean [Right Radial Artery] 103 Blood Pressure Position [Right Radial Artery] Lying Pulse Oximetry 97 Oxygen Delivery Method Room Air Sepsis Recent Fever Within 48 Hours Sepsis New/Unexplained Change in Mental Status Sepsis Action Taken by [facility]dc Medications Current Medication List: was personally reviewed by me Laboratory Data Attestation: I reviewed the patient's lab results. Result diagrams: 12/23/21 09:15 12/23/21 09:15 Lab Results 12/23/21 12/23/21 12/23/21 Range/Units 09:15 09:15 09:15 WBC 11.45 H (4.8-10.8) K/ul RBC 4.94 (4.63-6.08) M/uL Hgb 14.9 (14.0-18.0) g/dl Hct 44.3 (40.1-51.0) % MCV 89.7 (80.0-100.0) fL MCH 30.2 (25.0-34.0) pg MCHC 33.6 (32.0-36.0) g/dL RDW Std Deviation 44.9 (36.4-46.3) fL RDW Coeff of Rosy 13.6 (11.5-14.5) % Plt Count 419 H (130-400) K/uL MPV 9.1 L (9.4-12.4) fL Immature Gran % (Auto) 0.3 % Neut % (Auto) 49.7 % Lymph % (Auto) 38.9 % Stevens % (Auto) 8.9 % Eos % (Auto) 1.5 % Baso % (Auto) 0.7 % Neut # (Auto) 5.70 (1.4-6.5) K/uL Lymph # (Auto) 4.45 H (1.2-3.4) K/uL Stevens # (Auto) 1.02 H (0.24-0.82) K/uL Eos # (Auto) 0.17 (0-0.50) K/uL Baso # (Auto) 0.08 (0-0.2) K/uL Immature Gran # (Auto) 0.03 H (0.00-0.02) K/uL PT 11.1 (9.0-12.0) Seconds INR 1.0 (0.9-1.1) APTT 26.2 (21.0-31.0) Seconds PTT Ratio 1.0 Sodium 137 (136-145) mmol/L Potassium 4.0 (3.5-5.1) mmol/L Chloride 103 (98-107) mmol/L Carbon Dioxide 29 (21-32) mmol/L Anion Gap 5 (3-11) BUN 15 (6-23) mg/dl Creatinine 0.81 (0.6-1.4) mg/dl Est Cr Clr Drug Dosing 145.8 ml/min Est GFR ( Amer) 114.3 ml/min Est GFR (Non-Af Amer) 98.7 ml/min BUN/Creatinine Ratio 18.5 (10-20) Glucose 187 H (70-99(Fasting)) mg/dl Calcium 9.1 (8.5-10.1) mg/dl Magnesium 1.8 (1.7-2.4) mg/dl Total Bilirubin 0.5 (0.2-1.0) mg/dl AST 28 (13-39) U/L ALT 55 H (7-52) U/L Alkaline Phosphatase 50 (34-104) U/L Troponin I High Sens 12.1 (0-20) pg/ml Total Protein 7.5 (6.0-8.3) gm/dl Albumin 3.7 (3.4-5.0) gm/dl Globulin 3.8 (2.5-4.0) gm/dl Albumin/Globulin Ratio 1.0 (0.9-2) Lipase 23 (11-82) U/L SARS-CoV-2, RNA, NAAT (NEGATIVE) 12/23/21 Range/Units 09:34 WBC (4.8-10.8) K/ul RBC (4.63-6.08) M/uL Hgb (14.0-18.0) g/dl Hct (40.1-51.0) % MCV (80.0-100.0) fL MCH (25.0-34.0) pg MCHC (32.0-36.0) g/dL RDW Std Deviation (36.4-46.3) fL RDW Coeff of Rosy (11.5-14.5) % Plt Count (130-400) K/uL MPV (9.4-12.4) fL Immature Gran % (Auto) % Neut % (Auto) % Lymph % (Auto) % Stevens % (Auto) % Eos % (Auto) % Baso % (Auto) % Neut # (Auto) (1.4-6.5) K/uL Lymph # (Auto) (1.2-3.4) K/uL Stevens # (Auto) (0.24-0.82) K/uL Eos # (Auto) (0-0.50) K/uL Baso # (Auto) (0-0.2) K/uL Immature Gran # (Auto) (0.00-0.02) K/uL PT (9.0-12.0) Seconds INR (0.9-1.1) APTT (21.0-31.0) Seconds PTT Ratio Sodium (136-145) mmol/L Potassium (3.5-5.1) mmol/L Chloride (98-107) mmol/L Carbon Dioxide (21-32) mmol/L Anion Gap (3-11) BUN (6-23) mg/dl Creatinine (0.6-1.4) mg/dl Est Cr Clr Drug Dosing ml/min Est GFR ( Amer) ml/min Est GFR (Non-Af Amer) ml/min BUN/Creatinine Ratio (10-20) Glucose (70-99(Fasting)) mg/dl Calcium (8.5-10.1) mg/dl Magnesium (1.7-2.4) mg/dl Total Bilirubin (0.2-1.0) mg/dl AST (13-39) U/L ALT (7-52) U/L Alkaline Phosphatase (34-104) U/L Troponin I High Sens (0-20) pg/ml Total Protein (6.0-8.3) gm/dl Albumin (3.4-5.0) gm/dl Globulin (2.5-4.0) gm/dl Albumin/Globulin Ratio (0.9-2) Lipase (11-82) U/L SARS-CoV-2, RNA, NAAT NEGATIVE (NEGATIVE) Administered Medications Insulin Aspart (Insulin Aspart Per Unit) 0 units SC ACHS SVETLANA Stop: 01/22/22 13:29 Last Admin: 12/23/21 13:30 Dose: Not Given Documented By: AP Co-signed By: HG Discontinued Medications Nitroglycerin (Nitroglycerin 2% Ointment 30gm Tube) 1 inch EXT NOW STA Stop: 12/23/21 09:25 Last Admin: 12/23/21 09:30 Dose: 1 inch Documented By: AP Imaging Data Radiologist's Impression: Chest X-Ray 12/23/21 09:10 XR chest 1V portable HISTORY: 56 years-old Male Chest Pain acute chest pain COMPARISON: 08/27/2017 TECHNIQUE: Portable AP view of the chest FINDINGS: Cardiac silhouette is mildly enlarged. No pneumothorax, pleural effusion, airspace consolidation or overt pulmonary edema. There is mild chronic interstitial coarsening of the lung bases. Degenerative changes of the shoulders and spine. IMPRESSION: No acute process. ACT 112: Negative or not required by law. The above report was generated using voice recognition software. It may contain grammatical, syntax or spelling errors. Electronically signed by: Javier Farmer M.D. 12/23/2021 9:36 AM Discharge Plan Visit Data Chief Complaint: Chest Pain Stated Complaint: CHEST PAIN, JAW PAIN ED Provider: Ishmael White Discharge Problem: Precordial chest pain, SOB (shortness of breath), Abnormal stress test Patient Disposition: Admitted As Inpatient Condition: Fair Discharge Instructions Interventions: ED Discharge Assessment Last Done: 12/23/21 13:16
--- NOTE | 2021-12-23 09:38 | XRay Report ---
XR chest 1V portable HISTORY: 56 years-old Male Chest Pain acute chest pain COMPARISON: 08/27/2017 TECHNIQUE: Portable AP view of the chest FINDINGS: Cardiac silhouette is mildly enlarged. No pneumothorax, pleural effusion, airspace consolidation or o vert pulmonary edema. There is mild chronic interstitial coarsening of the lung bases. Degenerative c hanges of the shoulders and spine. IMPRESSION: No acute process. ACT 112: Negative or not required by law. The above report was generated using voice recognition software. It may contain grammatical, syntax o r spelling errors. Electronically signed by: Javier Farmer M.D. 12/23/2021 9:36 AM
[2021-12-23 09:42] LABS: Basophils # (auto) 0.08 K/uL (0-0.2); Basophils % (auto) 0.7 %; Eosinophils # (auto) 0.17 K/uL (0-0.50); Eosinophils % (auto) 1.5 %; Hematocrit (blood only) 44.3 % (40.1-51.0); Hemoglobin 14.9 g/dl (14.0-18.0); Immature Granulocytes # (auto) 0.03 K/uL (0.00-0.02); Immature Granulocytes % (auto) 0.3 %; Lymphocytes # (auto) 4.45 K/uL (1.2-3.4); Lymphocytes % (auto) 38.9 %; Mean Corpuscular Hemoglobin 30.2 pg (25.0-34.0); Mean Corpuscular Hgb Conc 33.6 g/dL (32.0-36.0); Mean Corpuscular Volume 89.7 fL (80.0-100.0); Mean Platelet Volume 9.1 fL (9.4-12.4); Monocytes # (auto) 1.02 K/uL (0.24-0.82); Monocytes % (auto) 8.9 %; Neutrophils % (auto) 49.7 %; Platelet Count 419 K/uL (130-400); RDW Coefficient of Variation 13.6 % (11.5-14.5); RDW Standard Deviation 44.9 fL (36.4-46.3); Red Blood Count 4.94 M/uL (4.63-6.08); White Blood Count 11.45 K/ul (4.8-10.8)
[2021-12-23 10:07] LABS: Partial Thromboplastin Time 26.2 Seconds (21.0-31.0); Prothrombin Time 11.1 Seconds (9.0-12.0)
[2021-12-23 10:08] LABS: Troponin I High Sensitivity 12.1 pg/ml (0-20)
[2021-12-23 10:16] LABS: Albumin Level 3.7 gm/dl (3.4-5.0); BUN Creatinine Ratio 18.5 (10-20); Bilirubin,Total 0.5 mg/dl (0.2-1.0); Calcium 9.1 mg/dl (8.5-10.1); Creatinine Clr Calc Pharmacy 145.8 ml/min; Est GFR (African American) 114.3 ml/min; Est GFR (Non-African American) 98.7 ml/min; Globulin 3.8 gm/dl (2.5-4.0); Magnesium 1.8 mg/dl (1.7-2.4); Total Protein 7.5 gm/dl (6.0-8.3)
--- NOTE | 2021-12-23 11:01 | History & Physical Report ---
Date of Service December 23, 2021 Assessment & Plan (1) Chest pain: Plan: Worsening exertional dyspnea, now with episodes of chest pain that also seem to be progressive. Abnormal stress test earlier this month. Initial w/u in ED negative. - Admit to PCU - Trend troponin - Repeat EKG with any recurrent pain and in AM - NPO after midnight for possible cardiac cath tomorrow - Consult cardiology - ED spoke to on-call provider - Lipid panel in AM (2) CAD (coronary artery disease): (3) DM type 2 (diabetes mellitus, type 2): Plan: Pt requires significant doses of insulin as outpatient - will consult glycemic pharmacist to assist with management. Initial orders placed. (4) HTN (hypertension): (5) Diastolic heart failure: (6) Sleep apnea: Plan: Untreated at baseline (7) Dyslipidemia: Plan Continue other home medications as appropriate. Pt seen and reviewed with collaborating physician, Dr. Valladares. Plan of care discussed and as outlined above. Code Status: Full Code DVT Prophylaxis: Ivan Macedo PA-C History of Present Illness Chief Complaint: Chest Pain Primary Care Provider: Xu Youssef MD This is a 56 y/o male with a PMH of CAD s/p inferior [place] in 2004, multiple subsequent cardiac cath procedures due to recurrent chest pain, asymptomatic ventricular ectopy, right heart failure, HTN, hyperlipidemia, untreated sleep apnea, insulin-requiring DM, renal cell carcinoma s/p renal cryoablation, pancreatic neuroendocrine tumor s/o partial pancreatectomy and splenectomy, and prior skin cancer who presented to the ED this morning with chest pain. He developed substernal chest pain that radiated to his left jaw, no radiation to his arm. [place] similar to prior [place] so he came to the ED for evaluation. Associated SOB, diaphoresis. No nausea or dizziness. Occurred at rest, lasted about about 1-1 1/2 hrs. Most of symptoms had resolved by the time he got to the ED. Last night, he also had episode of chest pain but that did not radiate to his jaw, lasted about 30 minutes and the pain went away. No recent syncope, palpitations, skipped beats. He most recently saw cardiology last week to f/u on results of recent Lexiscan nuclear stress test that was ordered to evaluated worsening MORE. Test from 12/12 showed a moderate-sized partially reversible perfusion defect of the basal and mid-segments of the inferior wall. Options for management discussed and pt decided to proceed with cardiac cath. Initial plan was to schedule this at [place] with Dr. Cunningham but due to progressive symptoms, pt is agreeable to having done here tomorrow if needed. He also notes ongoing issues with peripheral edema - diuretics seem to help. Chronic nasal congestion for which he uses nasal sprays with relief. Had some low blood sugars last week (notes symptoms with glucose <70) so adjusted carb ratios but then sugars were high. This week adjusted ratios back and blood sugars seems to be more stable. Last A1c was around 8. On average he reports AM blood sugars of 120-150. Allergies Allergy/AdvReac Type Severity Reaction Status Date / Time No Known Allergies Allergy Unverified 11/25/18 09:10 Home Medications Medication Instructions Recorded Confirmed Type aspirin 81 mg tablet 81 mg PO DAILY 11/25/18 12/23/21 History atorvastatin 40 mg tablet 40 mg PO DAILY 11/25/18 12/23/21 History clopidogrel 75 mg tablet 75 mg PO DAILY 11/25/18 12/23/21 History fluticasone propionate 50 2 spray intranasal BID #1 g 11/25/18 12/23/21 History mcg/actuation nasal spray,suspension insulin aspart U-100 100 unit/mL See Rx Instructions .Route .COMPLEX 11/25/18 12/23/21 History subcutaneous solution insulin glargine 100 unit/mL 50 unit subcut HS 11/25/18 12/23/21 History subcutaneous solution metformin 1,000 mg tablet 1,000 mg PO BID 11/25/18 12/23/21 History metoprolol succinate 50 mg 75 mg PO DAILY 11/25/18 12/23/21 History tablet,extended release 24 hr nitroglycerin 0.4 mg sublingual 0.4 mg sublingual Q5M PRN Chest 11/25/18 12/23/21 History tablet Pain omega-3 acid ethyl esters 1 gram 1 cap PO DAILY 11/25/18 12/23/21 History capsule tamsulosin 0.4 mg capsule 0.4 mg PO HS #90 caps 11/25/18 12/23/21 History azelastine 137 mcg (0.1 %) nasal 2 sprays intranasal BID 12/23/21 12/23/21 History spray aerosol furosemide 20 mg tablet 20 mg PO DAILY 12/23/21 12/23/21 History lisinopril 10 mg tablet 10 mg PO DAILY 12/23/21 12/23/21 History Past Med/Surg History Medical History Acquired renal cyst Allergic rhinitis CAD (coronary artery disease) "2004 - inferior wall [place], s/p BARI to proximal mid RCA 08/2011 - BARI x 2 to mid left circumflex 10/2011 - cath negative for stent restenosis, showed diffuse minor luminal irregularities 09/2012 - cath showed nonobstructive CAD with patent stents" On 11/20/16 13:28 Cecelia Humphrey wrote "2004 - inferior wall [place], s/p BARI to proximal mid RCA " Calculus of kidney Deviated septum Diastolic heart failure DM type 2 (diabetes mellitus, type 2) Hidradenitis suppurativa HTN (hypertension) Hypertrophy of both inferior nasal turbinates Neuroendocrine cancer Renal cell carcinoma Sleep apnea Surgical History H/O hernia repair H/O knee surgery H/O splenectomy History of cardiac catheterization multiple History of nasal septoplasty History of nephrectomy renal cryoablation History of partial pancreatectomy S/P nasal surgery Family History Grandmother Cardiac disorder Unknown Breast cancer Aunt Cardiac disorder Denies family history of Prostate cancer Social History Smoking Status: Former smoker Hx Alcohol Use: Yes Hx Substance Use: No Preferred Language: Bengali Communication Ability: Effective current occupational status: employed 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 Safe at Home: Yes Review of Systems Review of Systems: All systems reviewed & are unremarkable except as noted in HPI & below Constitutional: + sweats and + fatigue; no fever and no chills Eyes: no diplopia and no worsening vision Ear, Nose, Mouth, Throat: + nasal congestion (chronic issue - uses nasal sprays); no nasal discharge, no sore throat and no dysphagia Respiratory: + dyspnea on exertion; no cough and no hemoptysis Cardiovascular: as per Subjective / HPI Gastrointestinal: no abdominal pain, no nausea, no vomiting, no diarrhea/loose stools and no blood in stools Genitourinary: no dysuria or no hematuria Musculoskeletal: + back pain; no neck pain Integumentary: no yellowing of the skin Neurologic: no generalized weakness, no syncope and no headache(s) Physical Exam Constitutional: comfortable; no acute distress Eyes: + anicteric sclerae Neck: trachea midline Respiratory: no respiratory distress and no labored breathing Auscultation: lungs clear to auscultation bilaterally; no rales, no rhonchi and no wheezes Cardiovascular: Rate/Rhythm: regular rate and regular rhythm Vessels: radial pulses present Extremities: + edema (2+ LE edema) Gastrointestinal (Abdomen): Inspection/Auscultation: normal bowel sounds; abdomen not distended Percussion/Palpation: abdomen soft; abdomen nontender Musculoskeletal: Head/Neck/Chest: normocephalic, head atraumatic and neck supple Skin: no jaundice Neurologic: moves all extremities; no focal motor deficits and not confused Psychiatric: A+Ox3, euthymic affect Results & Data Results & Data ([facility]) Vital Signs (Past 12 Hours) Vital Signs Temp Pulse Pulse Resp BP BP Pulse Ox 12/23/21 10:00 65 18 165/73 H 97 12/23/21 09:37 12/23/21 09:37 12/23/21 08:55 36.8 C 63 18 159/85 H 97 O2 Del Method 12/23/21 10:00 Room Air 12/23/21 09:37 Room Air 12/23/21 09:37 Room Air 12/23/21 08:55 Room Air Laboratory Results Laboratory Results - last 24 hr 12/23/21 12/23/21 12/23/21 09:15 09:15 09:15 WBC 11.45 H RBC 4.94 Hgb 14.9 Hct 44.3 MCV 89.7 MCH 30.2 MCHC 33.6 RDW Std Deviation 44.9 RDW Coeff of Rosy 13.6 Plt Count 419 H MPV 9.1 L Immature Gran % (Auto) 0.3 Neut % (Auto) 49.7 Lymph % (Auto) 38.9 Wharton % (Auto) 8.9 Eos % (Auto) 1.5 Baso % (Auto) 0.7 Neut # (Auto) 5.70 Lymph # (Auto) 4.45 H Wharton # (Auto) 1.02 H Eos # (Auto) 0.17 Baso # (Auto) 0.08 Immature Gran # (Auto) 0.03 H PT 11.1 INR 1.0 APTT 26.2 PTT Ratio 1.0 Sodium 137 Potassium 4.0 Chloride 103 Carbon Dioxide 29 Anion Gap 5 BUN 15 Creatinine 0.81 Est Cr Clr Drug Dosing 145.8 Est GFR ( Amer) 114.3 Est GFR (Non-Af Amer) 98.7 BUN/Creatinine Ratio 18.5 Glucose 187 H Calcium 9.1 Magnesium 1.8 Total Bilirubin 0.5 AST 28 ALT 55 H Alkaline Phosphatase 50 Troponin I High Sens 12.1 Total Protein 7.5 Albumin 3.7 Globulin 3.8 Albumin/Globulin Ratio 1.0 Lipase 23 SARS-CoV-2, RNA, NAAT 12/23/21 09:34 WBC RBC Hgb Hct MCV MCH MCHC RDW Std Deviation RDW Coeff of Rosy Plt Count MPV Immature Gran % (Auto) Neut % (Auto) Lymph % (Auto) Wharton % (Auto) Eos % (Auto) Baso % (Auto) Neut # (Auto) Lymph # (Auto) Wharton # (Auto) Eos # (Auto) Baso # (Auto) Immature Gran # (Auto) PT INR APTT PTT Ratio Sodium Potassium Chloride Carbon Dioxide Anion Gap BUN Creatinine Est Cr Clr Drug Dosing Est GFR ( Amer) Est GFR (Non-Af Amer) BUN/Creatinine Ratio Glucose Calcium Magnesium Total Bilirubin AST ALT Alkaline Phosphatase Troponin I High Sens Total Protein Albumin Globulin Albumin/Globulin Ratio Lipase SARS-CoV-2, RNA, NAAT NEGATIVE Diagnostic Findings Chest X-ray 12/23/21 - IMPRESSION: No acute process. Medications Administered Discontinued Medications Nitroglycerin (Nitroglycerin 2% Ointment 30gm Tube) 1 inch EXT NOW STA Stop: 12/23/21 09:25 Last Admin: 12/23/21 09:30 Dose: 1 inch Documented By: AP Supervising Physician Co-Signing Physician Notes 56-year-old man presented to the ER with chest discomfort with radiation to the jaw and shortness of breath. Chest pain symptoms came on at rest not associated with sweating or nausea and lasted for about an hour prior to subsiding spontaneously. He did not take any nitroglycerin although he did have it on hand. He recently had an abnormal stress test and is awaiting cardiac catheterization. He has a history of coronary disease status post 4 stents in the past. At the time of this interview the patient reported a chest pain level of 0. He had no associated symptoms and was hungry, asking for lunch. We discussed his insulin regimen at length and all questions were answered to his satisfaction. Physical exam reveals an obese man in no acute distress. Cardiac exam reveals S1/S2 with no murmur gallop or rub. Lung exam is clear to auscultation bilaterally. Abdomen is protuberant, nondistended nontender. No evidence of peripheral edema. Skin is warm and dry. Generally can sit up independently in the bed and move all extremities equally. Neurologically intact without any gross focal deficits. Work-up revealed a CBC with an elevated white blood cell count of 11.45 and an elevated platelet count of 419. There was no evidence of anemia. Coag panel was normal. BMP was normal with a normal renal function and a glucose of 187. This was not fasting per patient. Magnesium was 1.8. ALT slightly elevated at 55, AST normal. Alk phos normal. Highly sensitive troponin was 12.1. SARS-CoV-2 was negative. Chest x-ray reveals no acute process. An EKG revealed normal sinus rhythm with no evidence of ST changes indicative of any ischemia. He received nitroglycerin 1 inch paste to chest. 56-year-old man presents with accelerated angina. He has a recent concerning abnormal. He underwent a Lexiscan on 12 December 2021 which was a 2-day combined exercise/Lexiscan myocardial perfusion imaging study which was abnormal with a moderate sized partially reversible perfusion defect encompassing the basal and mid segments of the inferior wall. Quantitatively the defect was 30% reversible. The stress EKG response was equivocal due to artifact noted during exercise. There was noted inferior and lateral repolarization abnormalities in the post-rest recovery interval. Fatigue and dyspnea on exertion was described with stress without chest discomfort. Gated SPECT imaging revealed mild inferior wall hypokinesis with an ejection fraction calculated to be 62%. He was admitted and cardiology was consulted. Agree with recommendation to consider diagnostic cardiac catheterization during this admission, likely tomorrow. Agree with pharmacy for assistance with hyperglycemic management. DO [place]
[2021-12-23] MEDS ORDERED: GLUCAGON FOR INJ 1 MG VIAL SQ PRN (11:38)
[2021-12-23] MEDS ORDERED: DEXTROSE 50% 50 ML SYRINGE IV PRN (11:38)
[2021-12-23] MEDS ORDERED: CARBOHYDRATES FOR HYPOGLYCEMIA PO PRN (11:38)
[2021-12-23] MEDS ORDERED: PHARMACY GLYCEMIC MGMT CONSULT PRN (11:38)
[2021-12-23] MEDS ORDERED: GLUCOSE 10 TAB/TUBE PO PRN (11:38)
[2021-12-23] MEDS ORDERED: GLUCOSE 40% GEL 15 GM TUBE PO PRN (11:38)
[2021-12-23] MEDS ORDERED: NITROGLYCERIN SL 0.4 MG/TAB TAB SL PRN (13:29)
[2021-12-23] MEDS: INSULIN ASPART PER UNIT SC SCH ×3 (13:30→22:34)
--- NOTE | 2021-12-23 13:48 | Pharmacy Report ---
Pharmacy Glycemic Short Note 2 - Date of Service December 23, 2021 - Glycemic Short BSG Results (Last 24 hours): 12/23/21 12/23/21 09:15 12:26 Glucose 187 H POC Glucose 81 OUTPATIENT ANTIDIABETIC REGIMEN: * Lantus 50 units HS * Novolog CR of 1 unit per 1.5 grams of carbohydrates consumed ASSESSMENT: * Mr Mejia is a 56 y/o M with a PMH of IDDM who presents with chest pain. He is NPO after midnight. * BSG in PRP this AM was 187 mg/dL - lunch BSG was 81 mg/dL. * Since patient last took his Lantus on 12/22/21 + patient will be NPO after midnight, reduce Lantus by 30% and give 35 units. * Novolog weight-based stress of 2 for now. PLAN FOR INPATIENT GLYCEMIC CONTROL: * Basal insulin * Lantus 35 units SQ HS tonight then re-evaluate based upon patient's PO sta tus * Bolus insulin * NovoLog per scale ACHS or Q6hrs while NPO * Goal Range: Low 110 mg/dL - High 140 mg/dL * Correction Factor: 15 mg/dL/unit * Nutritional / Prandial insulin per carb ratio of 1 unit per 5 grams CHO consumed
[2021-12-23] MEDS: ENOXAPARIN INJ 40 MG/0.4 ML SYR SQ SCH ×2 (17:20→21:56)
[2021-12-23] MEDS: TAMSULOSIN HCL 0.4 MG CAP PO SCH ×2 (20:57→20:58)
[2021-12-23] MEDS ORDERED: LANTUS PER UNIT CHARGE SQ SCH (21:00)
[2021-12-23] MEDS: FLUTICASONE PROPIONATE NA SPR 16 GM BTL SCH (22:34)
[2021-12-23] MEDS: AZELASTINE HCL 0.1% NASAL 200 SPRAYS/27,400 MCG BTL SCH (22:34)
[2021-12-24] MEDS ORDERED: lisinopril 20 MG TAB PO SCH (01:15)
--- NOTE | 2021-12-24 05:26 | Electrocardiogram Report ---
Test Reason : Blood Pressure : / mmHG Vent. Rate : 070 BPM Atrial Rate : 070 BPM P-R Int : 206 ms QRS Dur : 094 ms QT Int : 430 ms P-R-T Axes : 055 073 025 degrees QTc Int : 464 ms Normal sinus rhythm Nonspecific T wave abnormality When compared with ECG of 22-NOV-2016 08:40, No significant change was found Confirmed by Dave Chahal ([id number]) on 12/24/2021 5:26:15 AM Referred By: ED Confirmed By:Dave Chahal
[2021-12-24 06:43] LABS: Chol HDL Ratio 3.5 (0-5)
[2021-12-24 08:05] LABS: Estimated Average Glucose 183 mg/dl
[2021-12-24] MEDS: INSULIN ASPART PER UNIT SC SCH ×4 (08:10→21:02)
[2021-12-24] MEDS: AZELASTINE HCL 0.1% NASAL 200 SPRAYS/27,400 MCG BTL SCH ×2 (08:10→21:01)
[2021-12-24] MEDS: FLUTICASONE PROPIONATE NA SPR 16 GM BTL SCH ×2 (08:10→21:01)
[2021-12-24] MEDS: lisinopril 10 MG TAB PO SCH (08:11)
[2021-12-24] MEDS: METOPROLOL SUCC 25MG EXT REL TAB PO SCH (08:12)
[2021-12-24] MEDS: CLOPIDOGREL BISULFATE 75 MG TAB PO SCH (08:12)
[2021-12-24] MEDS: ATORVASTATIN 40 MG TAB PO SCH (08:12)
[2021-12-24] MEDS: ASPIRIN 81 MG ECTAB PO SCH (08:13)
[2021-12-24] MEDS ORDERED: lisinopril 10 MG TAB PO SCH (09:00)
[2021-12-24] MEDS: FUROSEMIDE 20 MG TAB PO SCH (09:52)
[2021-12-24] MEDS: ENOXAPARIN INJ 40 MG/0.4 ML SYR SQ SCH ×2 (10:35→22:03)
--- NOTE | 2021-12-24 12:47 | Cardiology Consultation ---
Date of Consultation December 24, 2021 Assessment & Plan (1) Precordial chest pain: (2) SOB (shortness of breath): (3) Abnormal stress test: (4) Sleep apnea: (5) Diastolic heart failure: Plan Patient is a 56-year-old male with concerning symptoms of increasing exertional dyspnea leg weakness and now chest tightness and jaw pain. Outpatient stress testing as above abnormal question secondary to old infarct versus progression in coronary artery disease. LV systolic functions remain preserved but symptoms now progressive superimposed on chronic diastolic heart failure/morbid obesity Recommendations: As planned patient should undergo diagnostic cardiac catheterization. Patient agreeable to proceeding today [facility]. Request interventionalist to perform procedure IV hydration begun Further recommendations pending the results of testing History of Present Illness Reason for Consultation: Increasing angina, abnormal stress test Requesting Physician: Dr. Valladares Attending Physician: Alex Dill MD History of Present Illness Patient is a 56-year-old male with ongoing cardiac and medical issues as listed below (outpatient note Joe Bermudez) 1. Atherosclerotic coronary disease a. Status post acute inferior myocardial infarction in 2004 treated with drug- eluting stent to the proximal mid right coronary artery for single vessel disease at that time. b. Recurrent angina pectoris and subsequent coronary intervention at [facility] with cardiac catheterization demonstrating diffuse coronary atherosclerosis with subtotal occlusion of the mid left circumflex treated with 2 overlapping drug-eluting stents. c. Repeat diagnostic cardiac catheterization for sustained back and chest discomfort in the setting of emotional stress performed at [facility] on 10/06/11 demonstrating no evidence of restenosis or stent occlusion with diffuse minor luminal irregularities per report. d. October 07, 2012 diagnostic cardiac catheterization at [facility] demonstrated nonobstructive coronary artery disease with patent left circumflex and right coronary artery stents. A 20 to 30% ostial left main taper was noted with no significant obstructive disease visualized. The mid segment of the LAD was described as diffusely disease with stenosis ranging up to 40%. The left circumflex was described as large but nondominant with a 30% proximal stenosis of the 1st obtuse marginal branch, luminal irregularities of the posterior lateral branch. The RCA was noted to be large and dominant - 20% diffuse in-stent restenosis without discrete obstructive disease and with the remainder of the vessel demonstrating luminal irregularities in the main vessel as well as branches. 2. Asymptomatic ventricular ectopy 3. Preserved LV systolic function 4. Right heart failure/diastolic heart failure secondary to untreated sleep apnea, longstanding hypertension, dietary indiscretion, morbid obesity 5. Hypertension 6. Hyperlipidemia. 7. Diabetes mellitus. 8. Sleep apnea, without PAP therapy. 9. S/p renal cryoablation. 10. 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 Patient is referred now after ER presentation with worsening symptoms of exertional chest pressure shortness of breath and jaw pain. Symptoms have been recently evaluated with testing as below due to progressive symptoms of exertional dyspnea and declining exercise capacity. He has been recommended to undergo diagnostic coronary angiography which had been arranged as an out patient Yesterday patient found symptoms to be increasingly more severe with jaw pain as a new finding. He presented to the ER where initial evaluation revealed no acute ischemia by enzyme and EKG Patient currently without pain or discomfort. He denies fevers chills or unexplained infections. Notes no bleeding difficulties.No prior difficulties with sedation. No history of TIA or stroke. Renal disease has been stable. GFR normal Glucose is "okay" Weight is up 50 pounds over the past 3 years Allergies Allergy/AdvReac Type Severity Reaction Status Date / Time No Known Allergies Allergy Unverified 11/25/18 09:10 Home Medications Medication Instructions Recorded Confirmed Type aspirin 81 mg tablet 81 mg PO DAILY 11/25/18 12/23/21 History atorvastatin 40 mg tablet 40 mg PO DAILY 11/25/18 12/23/21 History clopidogrel 75 mg tablet 75 mg PO DAILY 11/25/18 12/23/21 History fluticasone propionate 50 2 spray intranasal BID #1 g 11/25/18 12/23/21 History mcg/actuation nasal spray,suspension insulin aspart U-100 100 unit/mL See Rx Instructions .Route .COMPLEX 11/25/18 12/23/21 History subcutaneous solution insulin glargine 100 unit/mL 50 unit subcut HS 11/25/18 12/23/21 History subcutaneous solution metformin 1,000 mg tablet 1,000 mg PO BID 11/25/18 12/23/21 History metoprolol succinate 50 mg 75 mg PO DAILY 11/25/18 12/23/21 History tablet,extended release 24 hr nitroglycerin 0.4 mg sublingual 0.4 mg sublingual Q5M PRN Chest 11/25/18 12/23/21 History tablet Pain omega-3 acid ethyl esters 1 gram 1 cap PO DAILY 11/25/18 12/23/21 History capsule tamsulosin 0.4 mg capsule 0.4 mg PO HS #90 caps 11/25/18 12/23/21 History azelastine 137 mcg (0.1 %) nasal 2 sprays intranasal BID 12/23/21 12/23/21 History spray aerosol furosemide 20 mg tablet 20 mg PO DAILY 12/23/21 12/23/21 History lisinopril 10 mg tablet 10 mg PO DAILY 12/23/21 12/23/21 History Patient History Medical History Acquired renal cyst Allergic rhinitis CAD (coronary artery disease) "2004 - inferior wall [place], s/p BARI to proximal mid RCA 08/2011 - BARI x 2 to mid left circumflex 10/2011 - cath negative for stent restenosis, showed diffuse minor luminal irregularities 09/2012 - cath showed nonobstructive CAD with patent stents" On 11/20/16 13:28 Cecelia Humphrey wrote "2005 - inferior wall [place], s/p BARI to proximal mid RCA " Calculus of kidney Deviated septum Diastolic heart failure DM type 2 (diabetes mellitus, type 2) Hidradenitis suppurativa HTN (hypertension) Hypertrophy of both inferior nasal turbinates Neuroendocrine cancer Renal cell carcinoma Sleep apnea Surgical History H/O hernia repair H/O knee surgery H/O splenectomy History of cardiac catheterization multiple History of nasal septoplasty History of nephrectomy renal cryoablation History of partial pancreatectomy S/P nasal surgery Family History Grandmother Cardiac disorder Unknown Breast cancer Aunt Cardiac disorder Denies family history of Prostate cancer Social History Smoking Status: Former smoker Hx Alcohol Use: Yes Alcohol type: beer Hx Substance Use: No Preferred Language: Micronesian Communication Ability: Effective 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: No Beliefs That Will Affect Care: None Current Living Situation: Family Current Living Situation Comment: lives with uncle current occupational status: employed current occupation: [employer] Other Information That Helps Us Care for You: No Feels Safe at Home: Yes Safety Concerns: Feels Safe At This Time Assistive Devices: Glasses Review of Systems Review of Systems: All systems reviewed & are unremarkable except as noted in HPI & below Physical Exam Constitutional: + morbidly obese; no acute distress Eyes: PERRL, conjunctivae normal, anicteric sclerae ENMT: external ear and nose normal, oropharynx normal Neck: trachea midline, no thyromegaly Respiratory: normal respiratory effort, lungs clear to auscultation Cardiovascular: RRR, no murmur, no edema Vessels: femoral pulses present and radial pulses present Extremities: + edema (1+ with chronic stasis changes) Gastrointestinal (Abdomen): normal bowel sounds, soft, nontender, no hepatosplenomegaly Musculoskeletal: no cyanosis or clubbing, extremities motor strength 5/5 Results & Data ([facility]) Vital Signs (Past 12 Hours) Vital Signs Temp Pulse Pulse Resp BP Pulse Ox O2 Del Method 12/24/21 11:07 36.7 C 62 19 158/75 H 93 Room Air 12/24/21 09:50 Room Air 12/24/21 07:51 65 12/24/21 07:15 36.9 C 65 20 157/89 H 94 Room Air 12/24/21 03:43 36.9 C 60 18 153/77 H 92 Room Air 12/24/21 01:59 65 137/77 12/24/21 00:50 36.5 C 60 16 173/73 H 94 Room Air Laboratory Results Laboratory Results - last 24 hr 12/23/21 12/23/21 12/23/21 15:37 16:48 20:53 POC Glucose 152 H 214 H Estimat Average Glucose Hemoglobin A1c Troponin I High Sens 12.3 Triglycerides Cholesterol LDL Cholesterol, Calc VLDL Cholesterol, Calc HDL Cholesterol Cholesterol/HDL Ratio 12/23/21 12/24/21 12/24/21 21:09 05:36 05:36 POC Glucose Estimat Average Glucose 183 Hemoglobin A1c 8.0 H Troponin I High Sens 11.0 Triglycerides 78 Cholesterol 121 LDL Cholesterol, Calc 70 VLDL Cholesterol, Calc 16 HDL Cholesterol 35 Cholesterol/HDL Ratio 3.5 12/24/21 12/24/21 07:15 11:56 POC Glucose 253 H 177 H Estimat Average Glucose Hemoglobin A1c Troponin I High Sens Triglycerides Cholesterol LDL Cholesterol, Calc VLDL Cholesterol, Calc HDL Cholesterol Cholesterol/HDL Ratio Diagnostic Findings Echocardiogram 12/12/2021 The left ventricular cavity size is normal. The LV wall thickness is mildly increased (concentric). The left ventricular wall motion is normal. The qualitative LV ejection fraction is 60-64% (normal). The left ventricular diastolic function is mildly abnormal (grade I). There is no significant valvular disease Lexiscan stress nuclear imaging 12/12/2021 The 2 day combined exercise/Lexiscan myocardial perfusion imaging study is abnormal with a moderate-sized partially reversible perfusion defect encompassing the basal and mid segments of the inferior wall. On quantitative analysis, the inferior perfusion defect is 30% reversible (greater than 10% significant). The stress EKG response is equivocal due to artifact noted during exercise, with noted inferior and lateral repolarization abnormalities in the post stress recovery interval. Fatigue and dyspnea on exertion described with stress, without chest discomfort. Gated SPECT imaging reveals mild inferior wall hypokinesis The left ventricular ejection fraction was calculated to be 62%
[2021-12-24] MEDS ORDERED: MIDAZOLAM HCL 1 MG/ML 2ML VIAL ONE ×2 (15:29→16:48)
[2021-12-24] MEDS ORDERED: HEPARIN (PORCINE) 1000 UNIT/ML 10 ML (CATH LAB USE ONLY) ONE ×2 (15:29→17:33)
[2021-12-24] MEDS ORDERED: fentaNYL citrate 100 MCG/2 ML VIAL ONE ×2 (15:29→16:48)
[2021-12-24] MEDS ORDERED: niCARdipine HCL INJ 2.5 MG/ML 10 ML AMP ONE (15:29)
[2021-12-24] MEDS ORDERED: NITROGLYCERIN/D5W 100MCG/ML 20ML SYR ONE (15:30)
--- NOTE | 2021-12-24 16:20 | Pre Anesthesia Assessment ---
Date of Service December 24, 2021 Pre Sedation Assessment Vital Signs Temp Pulse Pulse Resp BP Pulse Ox O2 Del Method 12/24/21 15:07 57 L 12/24/21 11:07 98.1 F 62 19 158/75 H 93 Room Air 12/24/21 09:50 Room Air 12/24/21 07:51 65 12/24/21 07:15 98.4 F 65 20 157/89 H 94 Room Air 12/24/21 03:43 98.4 F 60 18 153/77 H 92 Room Air 12/24/21 01:59 65 137/77 12/24/21 00:50 97.7 F 60 16 173/73 H 94 Room Air 12/23/21 19:00 97.9 F 69 18 148/78 H 95 Room Air 12/23/21 17:33 66 12/23/21 16:59 Room Air 12/23/21 16:59 97.9 F 69 18 154/83 H 95 Room Air Cardiovascular RRR, no murmur, no edema Respiratory normal respiratory effort, lungs clear to auscultation Pre-Sedation Airway Assessment Smoking Status: Former smoker Hx Sleep Apnea: No Hx Difficult Intubation: No Short, Thick Neck: No Thyromental Distance: > or= 3.5 Finger Breadths Oral Cavity: + WNL ASA: ASA3 Procedure Planning Contraindications for Sedation: none Current Medications Reviewed: Yes Notes The planned sedation has been discussed with the patient. Informed Consent was obtained. I have identified the patient, determined the appropriateness of sedation and have assessed the patient immediately prior to the procedure. All medicine(s) and interventions are by my order.
--- NOTE | 2021-12-24 17:32 | Hospitalist Progress Note ---
Date of Service December 24, 2021 Assessment & Plan (1) Chest pain: Plan: Worsening exertional dyspnea, now with episodes of chest pain that also seem to be progressive. Abnormal stress test earlier this month. Initial w/u in ED negative. - Admit to PCU - Trend troponin - Repeat EKG with any recurrent pain -Troponin trends negative, admitting EKG with no acute changes. -Patient for heart cath today. Cardiology on board. Labs in AM. (2) CAD (coronary artery disease): (3) DM type 2 (diabetes mellitus, type 2): Plan: Pt requires significant doses of insulin as outpatient - will consult glycemic pharmacist to assist with management. Initial orders placed. (4) HTN (hypertension): (5) Diastolic heart failure: (6) Sleep apnea: Plan: Untreated at baseline (7) Dyslipidemia: Plan Continue other home medications as appropriate. Code Status: Full Code DVT Prophylaxis: Lovenox Admission and Anticipated Discharge Date Admission Date: December 23, 2021 Subjective Patient seen and examined at bedside as a follow-up of chest pain. Patient reported mild chest pain in a.m., nothing like what she presented with. Patient denies any headache/fever/sore throat/cough/other review of symptoms. Physical Exam Physical Exam: GENERAL: Alert and oriented x3. NAD, on RA. Class III obese. HEENT: No pallor, no icterus. Pupils equal, round and reactive to light. Oral mucosa moist. NECK: No JVD, no neck masses. HEART: S1 and S2 heard. Regular rate and rhythm. No murmur, no gallop. RESPIRATORY SYSTEM: Normal AP diameter. No accessory muscle use. No wheezing, no crackles. ABDOMEN: Soft, bowel sounds present, nontender, no distention. CENTRAL NERVOUS SYSTEM: No facial droop. Speech is clear. Obeys simple commands. Moves extremities. EXTREMITIES: 1+ BLE edema, no erythema seen. Results & Data Results & Data ([facility]) Vital Signs (Past 12 Hours) Vital Signs Temp Pulse Pulse Resp BP Pulse Ox O2 Del Method 12/24/21 15:07 57 L 12/24/21 11:07 36.7 C 62 19 158/75 H 93 Room Air 12/24/21 09:50 Room Air 12/24/21 07:51 65 12/24/21 07:15 36.9 C 65 20 157/89 H 94 Room Air
[2021-12-24] MEDS ORDERED: hydrALAZINE HCL 20 MG/ML VIAL ONE (17:56)
[2021-12-24] MEDS ORDERED: CLOPIDOGREL BISULFATE 300 MG TAB ONE (18:07)
--- NOTE | 2021-12-24 18:29 | Post Anesthesia Assessment ---
Date of Service December 24, 2021 Post Sedation Assessment Vital Signs Temp Pulse Pulse Resp BP Pulse Ox O2 Del Method 12/24/21 15:07 57 L 12/24/21 11:07 98.1 F 62 19 158/75 H 93 Room Air 12/24/21 09:50 Room Air 12/24/21 07:51 65 12/24/21 07:15 98.4 F 65 20 157/89 H 94 Room Air 12/24/21 03:43 98.4 F 60 18 153/77 H 92 Room Air 12/24/21 01:59 65 137/77 12/24/21 00:50 97.7 F 60 16 173/73 H 94 Room Air 12/23/21 19:00 97.9 F 69 18 148/78 H 95 Room Air Recovery Score Activity: Moves 4 extremities Respiration: Deep Breath/Cough Circulation: +/-20% PreAnes Value Consciousness: Fully Awake Oxygen Saturation: O2 needed for >90% Discharge Sedation Level of Care: Fast Track Phase II Post Sedation Plan On clinical assessment, the patient appears to have tolerated the sedation without complications. Patient is recovering as anticipated. Patient will continue to be monitored by nursing and may be discharged when sedation discharge criteria are met per below protocol. Upon Completions of procedure up to 15 minutes continue every 5 minute vital signs and the P.A.R. score; then discharge to a Phase I or Fast Track to Phase II per the following guidelines: * Discharge Patient to appropriate Phase II area if PAR is 8 or greater or return to pre- procedure baseline. The post - procedure orders will be as directed. * If PAR score is less than 8 or not return to pre-procedure baseline then patient will follow Phase I monitoring till PAR is reached for Phase II. The Phase I may be done in procedure room or may call to secure a Phase I area. * If naloxone or flumazenil are used for reversal, hold in Phase I for continued monitoring from when last reversal dose was given for a minimum of 60 minutes or longer pending the nurse and/or physician discretion of patient condition before discharge to Phase II. Please call the Sedation Physician to re-evaluate and complete post-note for discharge to Phase II area. Do NOT discharge from procedure sedation or Phase 1 until post- sedation evaluation note is complete by procedure /sedation MD Sedation Discharge Instructions to be given to the patient at discharge to home.
[2021-12-24] MEDS: SODIUM CHLORIDE 0.9% 1000ML 1,000 ML IV SCH (18:43)
[2021-12-24] MEDS ORDERED: SODIUM CHLORIDE 0.9% 1000ML 1,000 ML IV SCH (18:45)
--- NOTE | 2021-12-24 19:08 | Cardiac Catheterization ---
[facility] Data: Graduate Teaching Associate Cardiac Status Clinical evaluation leading to the procedure CAD Presenation: Positive Stress Test and Unstable angina Anginal Classification: CCS III Diagnostic Physicians Name: Chad Major MD Closure Device Recommendations: PCI without planned CABG Cardiac Cath Procedure Full Procedure Date December 24, 2021 Pre-Procedure Diagnosis Pre-Procedure Diagnosis: Acute Coronary Syndrome, Positive Stress Test and CAD AUC Score AUC Score: 7 Post-Procedure Diagnosis Post-Procedure Diagnosis: Severe CAD, Successful PCI and Elevated Intracardiac Pressures Procedure(s) Performed Procedure(s) Performed: Coronary Angiography, Left Heart Cath, Drug Eluting Stent, Ultrasound Guided Vascular Access and IVUS Call Specialist Chad Major MD Rural Route Carrier(s) Mine Laborer Estimated Blood Loss Estimated Blood Loss: 10 Medication(s) Medication(s): Clopidogrel, Fentanyl, Heparin, Lidocaine 1%, Nicardipine, Nitroglycerin and Versed Summary of Findings Indication: Unstable angina, abnormal stress test, history of coronary disease post prior PCI to RCA, circumflex Access: 6 Fr right radial artery under ultrasound guidance Catheters: [place], JR4 guide Findings: LM -normal caliber, no significant disease LAD -medium caliber, calcified, 30 to 40% mid segment disease involving takeoff of D1 distal vessel small without significant disease and extends to apex. Small to medium D1 with 50% ostial stenosis. Circumflex -90% focal mid stenosis just before prior stent. Mid stent widely patent. Small distal circumflex with 40% stenosis just after stent. Medium OM1 with diffuse 30% proximal disease. RCA -dominant, medium caliber, 50 to 60% proximal stenosis just before prior stent, mid RCA stent with diffuse moderate in-stent restenosis prior to 99% stenosis just after stent. 70% latemid stenosis just before prior stent extend ing into distal segment with SOPHIA <1 flow. [id number] collaterals to PDA, PLB's. LVEDP -19 -- PCI -- Antithrombotic therapy: Heparin, clopidogrel Procedure: RCA cannulated with JR4 guide and guideliner placed in proximal vessel Pre-procedure flow SOPHIA SOPHIA 0-1 Cage Shift Manager 50 wire passed across lesions into distal vessel right PLB With the aid of guide liner mid RCA dilated with 2.0 compliant balloon [place] IVUS catheter placed in mid segment. Revealed calcified mid vessel with mild in-stent restenosis and severe heavily calcified lateproximal stenosis just before prior stent. No significant ostial disease. Mid RCA dilated further with 3.0 balloon Using GuideLiner advance to mid RCA able to pass 3.0 x 38 mm [place] drug-eluting stent extending into distal segment in overlapping proximal aspect of prior stent Second BARI (4.0 x 15 mm [place]) placed from proximal to mid segment overlapping proximal aspect of old mid RCA stent. With some difficulty despite use of guideliner stents post-dilated with 3.5 noncompliant balloon IC vasodilators administered for spasm Residual lateproximal narrowing predilated with 4.0 NC to high atmospheres. Post procedure SOPHIA 3 flow, stents well expanded with minimal residual stenosis and no apparent cardiac complications. Arterial Closure: TR band Summary: 1. Multivessel coronary artery disease -Acute on chronic mid RCA occlusion with [id number] collaterals 90% focal mid circumflex stenosis just before patent prior stent. Medium OM1 30% diffuse disease 40% mid LAD disease. 50% ostial D1 2. Borderline intracardiac filling pressure 3. Successful PCI of proximal to distal RCA with 2 drug-eluting stents (4.0 x 15, 3.0 x 38 mm Karl; postdilated with 4.0 NC). Recommendations: To PCU for continued monitoring Reloaded with clopidogrel 300 mg in Graduate Teaching Associate Continue extended dual platelet therapy with overlapping stents Continue statin, and ASCVD risk factor modification Consult cardiac Rehab If refractory anginal symptoms in the future PCI to mid circumflex could be considered. Hemodynamics Rest Ao:: 165/24/29 Final Ao: 171/82/113 LV: 165/19 Recommendations Recommendations: PCI without planned CABG Specimens Specimens: None Radiation Exposure (mGy) 6665 Contrast (mls) 140 Anesthesia Moderate 1622- 1809 Procedural Complication(s) None Disposition PCU I attest to the content of the Intraoperative Record and any orders documented therein. Any exceptions are noted below. [facility] Card Cath Procedure Codes Cardiac Catheterization Procedure 1: Cardiovascular Cath Procedures: 58627 Coronaries and LHC (+/-LV) Therapeutic Services & Ancillary Procedure 1: Cardiovascular Tx and Anc Procedures: 15651 Ultrasonic Guidance Vascular Access Procedure 2: Cardiovascular Tx and Anc Procedures: 65693 IV Ultrasound (Coronary or Graft) Moderate Sedation Procedure 1: Sedation/Anesthesia: 71967 Mod Sedation by the same physician;Init15 Min Child Age 5 & Up Procedure 2: Sedation/Anesthesia: 48783 Mod Sedation by the same physician; Ea [id number] Minutes Stenting Procedure 1: Cardiovascular Stent Procedures: 25125 Perc transluminal revascularization of acute sub/total occl, aMI PG Care Time/CCT Total # of Minutes Spent Total Time Spent with Patient: Total time spent is greater than 50% in coordination of care (as documented) at patient's floor/unit and/or counseling patient:
[2021-12-24] MEDS ORDERED: LANTUS PER UNIT CHARGE SQ SCH (21:00)
[2021-12-25 05:56] LABS: Hematocrit (blood only) 44.9 % (40.1-51.0); Hemoglobin 15.1 g/dl (14.0-18.0); Mean Corpuscular Hemoglobin 30.6 pg (25.0-34.0); Mean Corpuscular Hgb Conc 33.6 g/dL (32.0-36.0); Mean Corpuscular Volume 90.9 fL (80.0-100.0); Mean Platelet Volume 9.1 fL (9.4-12.4); Platelet Count 392 K/uL (130-400); RDW Coefficient of Variation 13.8 % (11.5-14.5); RDW Standard Deviation 46.1 fL (36.4-46.3); Red Blood Count 4.94 M/uL (4.63-6.08); White Blood Count 10.82 K/ul (4.8-10.8)
[2021-12-25 06:26] LABS: BUN Creatinine Ratio 15.1 (10-20); Calcium 9.2 mg/dl (8.5-10.1); Creatinine Clr Calc Pharmacy 126.3 ml/min; Est GFR (African American) 105.2 ml/min; Est GFR (Non-African American) 90.8 ml/min; Magnesium 1.9 mg/dl (1.7-2.4); Phosphorus 3.6 mg/dl (2.5-4.9); Potassium 4.5 mmol/L (3.5-5.1)
--- NOTE | 2021-12-25 06:51 | Electrocardiogram Report ---
Test Reason : Blood Pressure : / mmHG Vent. Rate : 068 BPM Atrial Rate : 068 BPM P-R Int : 192 ms QRS Dur : 094 ms QT Int : 450 ms P-R-T Axes : 053 068 057 degrees QTc Int : 478 ms Sinus rhythm with occasional Premature ventricular complexes Premature atrial complexes Otherwise normal ECG When compared with ECG of 23-DEC-2021 09:05, Premature ventricular complexes are now Present Premature atrial complexes are now Present Confirmed by Dave Chahal ([id number]) on 12/25/2021 6:50:32 AM Referred By: REFERRED SELF Confirmed By:Dave Chahal
[2021-12-25] MEDS ORDERED: LANTUS PER UNIT CHARGE SQ SCH (09:00)
[2021-12-25] MEDS: lisinopril 10 MG TAB PO SCH (09:18)
[2021-12-25] MEDS: CLOPIDOGREL BISULFATE 75 MG TAB PO SCH (09:18)
[2021-12-25] MEDS: FUROSEMIDE 20 MG TAB PO SCH (09:18)
[2021-12-25] MEDS: METOPROLOL SUCC 25MG EXT REL TAB PO SCH (09:18)
[2021-12-25] MEDS: ASPIRIN 81 MG ECTAB PO SCH (09:19)
[2021-12-25] MEDS: AZELASTINE HCL 0.1% NASAL 200 SPRAYS/27,400 MCG BTL SCH (09:19)
[2021-12-25] MEDS: FLUTICASONE PROPIONATE NA SPR 16 GM BTL SCH (09:19)
[2021-12-25] MEDS: ATORVASTATIN 40 MG TAB PO SCH (09:19)
--- NOTE | 2021-12-25 09:23 | Pharmacy Report ---
Pharmacy Glycemic Short Note 2 - Date of Service December 25, 2021 - Glycemic Short BSG Results (Last 24 hours): 12/24/21 12/24/21 12/24/21 11:56 18:31 20:13 Glucose POC Glucose 177 H 221 H 337 H* 12/24/21 12/25/21 12/25/21 20:14 05:35 07:30 Glucose 259 H POC Glucose 284 H 227 H OUTPATIENT ANTIDIABETIC REGIMEN: * Lantus 50 units HS * Novolog CR of 1 unit per 1.5 grams of carbohydrates consumed ASSESSMENT: 12/25 * Fasting elevated yesterday, lantus increased back to home dose last PM, still elevated this morning 225 mg/dL, will give additional 10 units this morning * Novolog parameters tightened to CF 10, CR 2 with anticipation of patient eating today * POD #1 from cardiac cath * Patient refused additional 10 units this AM. To be discharged this afternoon 12/23 * Mr Mejia is a 56 y/o M with a PMH of IDDM who presents with chest pain. He is NPO after midnight. * BSG in PRP this AM was 187 mg/dL - lunch BSG was 81 mg/dL. * Since patient last took his Lantus on 12/22/21 + patient will be NPO after midnight, reduce Lantus by 30% and give 35 units. * Novolog weight-based stress of 2 for now. PLAN FOR INPATIENT GLYCEMIC CONTROL: * Basal insulin * Lantus 10 units SQ this AM, 50 units HS * Bolus insulin * NovoLog per scale ACHS or Q6hrs while NPO * Goal Range: Low 110 mg/dL - High 140 mg/dL * Correction Factor: 10 mg/dL/unit * Nutritional / Prandial insulin per carb ratio of 1 unit per 2 grams CHO consumed
[2021-12-25] MEDS: INSULIN ASPART PER UNIT SC SCH ×2 (09:49→12:56)
[2021-12-25] MEDS: ENOXAPARIN INJ 40 MG/0.4 ML SYR SQ SCH (11:53)
[2021-12-25] MEDS: SODIUM CHLORIDE 0.9% 1000ML 1,000 ML IV SCH (11:54)
--- NOTE | 2021-12-25 12:02 | Cardiology Progress Note ---
Date of Service December 25, 2021 Assessment & Plan (1) Precordial chest pain: (2) SOB (shortness of breath): (3) Abnormal stress test: (4) Sleep apnea: (5) Diastolic heart failure: Plan Patient is a 56-year-old male with concerning symptoms of increasing exertional dyspnea leg weakness and now chest tightness and jaw pain. Outpatient stress testing as above abnormal question secondary to old infarct versus progression in coronary artery disease. LV systolic functions remain preserved but symptoms now progressive superimposed on chronic diastolic heart failure/morbid obesity Patient underwent coronary angiography and intervention of the right coronary artery as above. Patient will need aggressive risk factor modification discussed in detail with patient. Will need weight loss diet and diabetic control, intensification of lipid reduction Would recommend discontinuing atorvastatin beginning rosuvastatin 40 mg/day for additional lipid reduction Cardiac rehab consultation Continue all other medications as prescribed with patient to be discharged today\ Keep appointment with PCP 12/30/2021 Follow-up cardiology 3 to 4-week Admission and Anticipated Discharge Date Admission Date: December 23, 2021 Subjective Patient seen and examined, chart, medications, telemetry reviewed. Patient ambulatory in hallway no chest pains or worsening shortness of breath. Right radial access healed well. Review of Systems Review of Systems: All systems reviewed & are unremarkable except as noted in Subjective Physical Exam Constitutional: + morbidly obese; no acute distress Eyes: PERRL, conjunctivae normal, anicteric sclerae ENMT: external ear and nose normal, oropharynx normal Neck: trachea midline, no thyromegaly Respiratory: normal respiratory effort, lungs clear to auscultation Cardiovascular: RRR, no murmur, no edema Vessels: femoral pulses present and radial pulses present Extremities: + edema (1+ with chronic stasis changes) Gastrointestinal (Abdomen): normal bowel sounds, soft, nontender, no hepatosplenomegaly Musculoskeletal: no cyanosis or clubbing, extremities motor strength 5/5 Results & Data ([facility]) Vital Signs (Past 12 Hours) Vital Signs Temp Pulse Pulse Resp BP BP Pulse Ox 12/25/21 11:18 36.7 C 68 22 165/88 H 97 12/25/21 08:00 60 12/25/21 07:30 36.6 C 62 20 133/76 97 12/25/21 02:59 36.5 C 61 18 131/67 95 O2 Del Method 12/25/21 11:18 Room Air 10/26/22 08:00 12/25/21 07:30 Room Air 12/25/21 02:59 Room Air Laboratory Results Laboratory Results - last 24 hr 12/24/21 12/24/21 12/24/21 17:30 17:44 18:31 WBC RBC Hgb Hct MCV MCH MCHC RDW Std Deviation RDW Coeff of Rosy Plt Count MPV Activ Coag Time Kaolin 190 H 260 H Sodium Potassium Chloride Carbon Dioxide Anion Gap BUN Creatinine Est Cr Clr Drug Dosing Est GFR ( Amer) Est GFR (Non-Af Amer) BUN/Creatinine Ratio Glucose POC Glucose 221 H Calcium Phosphorus Magnesium 12/24/21 12/24/21 12/25/21 20:13 20:14 05:35 WBC 10.82 H RBC 4.94 Hgb 15.1 Hct 44.9 MCV 90.9 MCH 30.6 MCHC 33.6 RDW Std Deviation 46.1 RDW Coeff of Rosy 13.8 Plt Count 392 MPV 9.1 L Activ Coag Time Kaolin Sodium Potassium Chloride Carbon Dioxide Anion Gap BUN Creatinine Est Cr Clr Drug Dosing Est GFR ( Amer) Est GFR (Non-Af Amer) BUN/Creatinine Ratio Glucose POC Glucose 337 H* 284 H Calcium Phosphorus Magnesium 12/25/21 12/25/21 12/25/21 05:35 07:30 11:17 WBC RBC Hgb Hct MCV MCH MCHC RDW Std Deviation RDW Coeff of Rosy Plt Count MPV Activ Coag Time Kaolin Sodium 132 L Potassium 4.5 Chloride 100 Carbon Dioxide 25 Anion Gap 7 BUN 14 Creatinine 0.93 Est Cr Clr Drug Dosing 126.3 Est GFR ( Amer) 105.2 Est GFR (Non-Af Amer) 90.8 BUN/Creatinine Ratio 15.1 Glucose 259 H POC Glucose 227 H 273 H Calcium 9.2 Phosphorus 3.6 Magnesium 1.9 Diagnostic Findings Summary: 1. Multivessel coronary artery disease -Acute on chronic mid RCA occlusion with [id number] collaterals 90% focal mid circumflex stenosis just before patent prior stent. Medium OM1 30% diffuse disease 40% mid LAD disease. 50% ostial D1 2. Borderline intracardiac filling pressure 3. Successful PCI of proximal to distal RCA with 2 drug-eluting stents (4.0 x 15, 3.0 x 38 mm [place]; postdilated with 4.0 NC). Recommendations: To PCU for continued monitoring Reloaded with clopidogrel 300 mg in Mold Cleaner Continue extended dual platelet therapy with overlapping stents Continue statin, and ASCVD risk factor modification Consult cardiac Rehab If refractory anginal symptoms in the future PCI to mid circumflex could be considered.
--- NOTE | 2021-12-25 13:04 | Discharge Summary ---
Date of Service December 25, 2021 Admission HPI Per Admitting Provider This is a 56 y/o male with a PMH of CAD s/p inferior DE in 2004, multiple subsequent cardiac cath procedures due to recurrent chest pain, asymptomatic ventricular ectopy, right heart failure, HTN, hyperlipidemia, untreated sleep apnea, insulin-requiring DM, renal cell carcinoma s/p renal cryoablation, pancreatic neuroendocrine tumor s/o partial pancreatectomy and splenectomy, and prior skin cancer who presented to the ED this morning with chest pain. He developed substernal chest pain that radiated to his left jaw, no radiation to his arm. [place] similar to prior DE so he came to the ED for evaluation. Associa tristen SOB, diaphoresis. No nausea or dizziness. Occurred at rest, lasted about about 1-1 1/2 hrs. Most of symptoms had resolved by the time he got to the ED. Last night, he also had episode of chest pain but that did not radiate to his jaw, lasted about 30 minutes and the pain went away. No recent syncope, palpitations, skipped beats. He most recently saw cardiology last week to f/u on results of recent Lexiscan nuclear stress test that was ordered to evaluated worsening MORE. Test from 12/12 showed a moderate-sized partially reversible perfusion defect of the basal and mid-segments of the inferior wall. Options for management discussed and pt decided to proceed with cardiac cath. Initial plan was to schedule this at [place] with Dr. Cunningham but due to progressive symptoms, pt is agreeable to having done here tomorrow if needed. He also notes ongoing issues with peripheral edema - diuretics seem to help. Chronic nasal congestion for which he uses nasal sprays with relief. Had some low blood sugars last week (notes symptoms with glucose <70) so adjusted carb ratios but then sugars were high. This week adjusted ratios back and blood sugars seems to be more stable. Last A1c was around 8. On average he reports AM blood sugars of 120-150. Admission Exam Per Admitting Provider Constitutional: comfortable; no acute distress Eyes: + anicteric sclerae Neck: trachea midline Respiratory: no respiratory distress and no labored breathing Auscultation: lungs clear to auscultation bilaterally; no rales, no rhonchi and no wheezes Cardiovascular: Rate/Rhythm: regular rate and regular rhythm Vessels: radial pulses present Extremities: + edema (2+ LE edema) Gastrointestinal (Abdomen): Inspection/Auscultation: normal bowel sounds; abdomen not distended Percussion/Palpation: abdomen soft; abdomen nontender Musculoskeletal: Head/Neck/Chest: normocephalic, head atraumatic and neck supple Skin: no jaundice Neurologic: moves all extremities; no focal motor deficits and not confused Psychiatric: A+Ox3, euthymic affect Principal Diagnosis Chest pain rule out ACS Abnormal outpatient stress test Discharge Exam GENERAL: Alert and oriented x3. NAD, on RA. Class III obese. HEENT: No pallor, no icterus. Pupils equal, round and reactive to light. Oral mucosa moist. NECK: No JVD, no neck masses. HEART: S1 and S2 heard. Regular rate and rhythm. No murmur, no gallop. RESPIRATORY SYSTEM: Normal AP diameter. No accessory muscle use. No wheezing, no crackles. ABDOMEN: Soft, bowel sounds present, nontender, no distention. CENTRAL NERVOUS SYSTEM: No facial droop. Speech is clear. Obeys simple commands. Moves extremities. EXTREMITIES: 1+ BLE edema, no erythema seen. Discharge Data Allergies Allergy/AdvReac Type Severity Reaction Status Date / Time No Known Allergies Allergy Unverified 11/25/18 09:10 Consultations 12/23/21 10:52 ED Decision to Admit Stat 12/23/21 13:29 Consult Cardiology Routine 12/24/21 18:42 Consult Cardiac Rehabilitation Routine Procedures Performed Operation Date: 12/24/21 15:30 Actual Procedures p Cineradiography w/Routine Exam - Narinder Major MD p Cath, Left with Cors and Vent - Narinder Major MD p Drug Eluting Stent SGl Vessel - Narinder Major MD s Ultrasound Vascular Access - Narinder Major MD s IVUS Coronary Single Vessel - Narinder Major MD Ordered Studies 12/24/21 13:10 CL Cath Imgs for PACS use only Stat 12/24/21 18:31 CL IVUS Coronary Single Vessel Routine Hospital Course (1) Chest pain: Worsening exertional dyspnea, now with episodes of chest pain that also seem to be progressive. Abnormal stress test earlier this month. Initial w/u in ED negative. Patient was admitted under observation in PCU, troponin trends were negative, admitting EKG with no acute changes, cardiology evaluated the patient. Patient underwent heart cath on 12/24/2021, received stents x2 to his RCA. He needs atorvastatin has been stopped and he is a started on rosuvastatin. He is to follow-up with his PCP and cardiology upon discharge. Patient to follow-up with cardiac rehab upon discharge. Patient denies any chest pain after heart cath, and reports he is feeling fine and would like to go home. Patient is hemodynamically stable. (2) CAD (coronary artery disease): (3) DM type 2 (diabetes mellitus, type 2): Pt requires significant doses of insulin as outpatient - will consult glycemic pharmacist to assist with management. Initial orders placed. (4) HTN (hypertension): (5) Diastolic heart failure: (6) Sleep apnea: Untreated at baseline (7) Dyslipidemia: Plan Continue other home medications as appropriate. Patient being discharged home with following instruction at the point of discharge: Follow-up with your primary care physician within a week time and likely you will need blood test CBC/CMP/magnesium levels. For your chest pain and abnormal stress test, cardiology evaluated you while in hospital, you underwent cardiac cath and stenting to your RCA vessel. Your atorvastatin has been stopped, rosuvastatin 40 mg/day has been started. You will need to follow-up with cardiac rehabilitation. Follow-up with cardiology in 3 to 4 weeks. Follow-up with heart healthy diet and carbohydrate consistent diet. Follow-up closely with your PCP or diabetic clinic for your ongoing management of your diabetes. Take your medications as prescribed. Please make sure that you are able to get your medications today by calling your pharmacy before you leave the hospital so that your treatment continuity is not broken. Home Health Attestation I certify that this patient is under my care and that I, or a physicians behavioral assistant working with me, had a face to-face encounter that meets the home health [id number] encounter requirements with this patient. The encounter with the patient was in whole, or in part, for the following medical condition, which is the primary reason for home health care (list medical condition): I certify that, based on my findings, the following services are medically necessary home health services: My clinical findings support the need for the above services because: Further, I certify that my clinical findings support that this patient is homebound (i.e. absences from home require considerable and taxing effort and are for medical reasons or restorationism services or infrequently or of short duration when for other reasons) because: Certification for Home Health Services: Based on the above findings, I certify that this patient is confined to the home and needs intermittent penitentiary care, physical therapy and/or speech therapy or continues to need occupational therapy. The patient is under my care, and I have initiated the establishment of the plan of care. This patient will be followed by a physician who will periodically review the plan of care. Total Time Total Time Spent Total Time Spent (In Minutes): 40 Discharge Plan Discharge Items Patient Disposition: Home - Self-Care Reason For Visit: CHEST PAIN Discharge Diagnosis: Chest pain rule out ACS Abnormal outpatient stress test Condition on Discharge: Fair Activity: As commented below Activity Comment: Per cardiac rehab recommendation. Non-emergency contact: Primary Care Provider Call non-emergency contact if: you have any medication questions, your symptoms worsen and your temperature is above 101.5 Follow-up/Referrals: Xu Youssef MD [Primary Care Provider] - (Date & Time 12/30/2021 11:00 AM Provider Xu Youssef MD Department General Internal Medicine [facility] ) Diet: Carb Consistent or DM2, Heart Healthy and Low Sodium (2gm) Addtl Attending Provider Instructions: Follow-up with your primary care physician within a week time and likely you will need blood test CBC/CMP/magnesium levels. For your chest pain and abnormal stress test, cardiology evaluated you while in hospital, you underwent cardiac cath and stenting to your RCA vessel. Your atorvastatin has been stopped, rosuvastatin 40 mg/day has been started. You will need to follow-up with cardiac rehabilitation. Follow-up with cardiology in 3 to 4 weeks. Follow-up with heart healthy diet and carbohydrate consistent diet. Follow-up closely with your PCP or diabetic clinic for your ongoing management of your diabetes. Take your medications as prescribed. Please make sure that you are able to get your medications today by calling your pharmacy before you leave the hospital so that your treatment continuity is not broken. Pending Studies at Discharge: No Stand-Alone Forms: My [employer], Smoking Cessation Medications and DC Order Prescriptions: New rosuvastatin [Crestor] 20 mg Tablet 40 mg PO QAM Qty: 30 0RF aspirin 81 mg Tablet,Delayed Release (Dr/Ec) 81 mg PO DAILY Qty: 30 0RF Continued omega-3 acid ethyl esters 1 gram capsule 1 cap PO DAILY nitroglycerin 0.4 mg tablet, sublingual 0.4 mg SL Q5M MDD 3 doses in 15 min PRN (Reason: Chest Pain) metformin 1,000 mg tablet 1,000 mg PO BID insulin aspart U-100 100 unit/mL solution See Rx Instructions .ROUTE .COMPLEX Rx Instructions: Using carb ratio of 1 unit to 1 1/2 carbs clopidogrel 75 mg tablet 75 mg PO DAILY metoprolol succinate 50 mg tablet extended release 24 hr 75 mg PO DAILY insulin glargine 100 unit/mL solution 50 unit subcut HS fluticasone propionate 50 mcg/actuation spray,suspension 2 spray intranasal BID Qty: 1 tamsulosin 0.4 mg capsule 0.4 mg PO HS Qty: 90 lisinopril 10 mg tablet 10 mg PO DAILY furosemide 20 mg tablet 20 mg PO DAILY azelastine 137 mcg (0.1 %) aerosol,spray 2 sprays intranasal BID Discontinued aspirin 81 mg tablet 81 mg PO DAILY atorvastatin 40 mg tablet 40 mg PO DAILY Discharge Orders: Discharge Order (Routine); Ordered 12/25/21 Ordered By: Alex Dill Admission Data Admit Date/Time: 12/23/21 11:28 Attending Provider: Alex Dill Admit Provider: Cecy Valladares Primary Care Provider: Xu Youssef Other Providers: Cecy Valladares ; Sean Garcia
--- NOTE | 2021-12-26 05:32 | Electrocardiogram Report ---
Test Reason : Blood Pressure : / mmHG Vent. Rate : 064 BPM Atrial Rate : 064 BPM P-R Int : 194 ms QRS Dur : 094 ms QT Int : 450 ms P-R-T Axes : 031 051 030 degrees QTc Int : 464 ms Normal sinus rhythm Premature atrial complexes Poor R wave progression, consider anterior ND vs. lead placement vs. LVH Abnormal ECG When compared with ECG of 24-DEC-2021 06:37, Premature ventricular complexes are no longer Present Confirmed by Dave Chahal ([id number]) on 12/26/2021 5:32:11 AM Referred By: REFERRED SELF Confirmed By:Dave Chahal
[2021-12-26] MEDS ORDERED: ROSUVASTATIN CALCIUM 20 MG TAB PO SCH (09:00)
== END 2021-12-25 13:50 | disposition home or self-care (01) ==
LOC: EDINP 08:53 → ED 08:53 → SUATTDRO 11:28 → 4W 13:16

== ENCOUNTER 2022-09-30 00:06 | Observation (INO) ==
[2022-09-30] MEDS ORDERED: ASPIRIN CHEW 324 MG PO STA ×2 (00:24→00:35)
[2022-09-30 00:56] LABS: Hematocrit (blood only) 41.4 % (42.0-52.0); Hemoglobin 14.4 g/dl (14.0-18.0); Mean Corpuscular Hemoglobin 30.9 pg (25.0-34.0); Mean Corpuscular Hgb Conc 34.8 g/dL (32.0-36.0); Mean Corpuscular Volume 88.8 fL (80.0-100.0); Mean Platelet Volume 9.1 fL (9.4-12.4); Platelet Count 402 K/uL (130-400); RDW Standard Deviation 45.1 fL (36.4-46.3); Red Blood Count 4.66 M/uL (4.70-6.10)
[2022-09-30 01:11] LABS: Albumin Level 3.8 gm/dl (3.4-5.0); BUN Creatinine Ratio 23.4 (10-20); Bilirubin,Total 0.3 mg/dl (0.2-1.0); Calcium 9.5 mg/dl (8.6-10.3); Creatinine Clr Calc Pharmacy 124.8 ml/min; Est GFR (African American) 103.2 ml/min; Globulin 3.8 gm/dl (2.5-4.0); Potassium 3.8 mmol/L (3.5-5.1); Total Protein 7.6 gm/dl (6.0-8.3)
[2022-09-30 01:17] LABS: Troponin I High Sensitivity 10.7 pg/ml (0-20)
--- NOTE | 2022-09-30 01:18 | Emergency Department Note ---
Impression & Plan Hypertension, Precordial chest pain, Morbid obesity with BMI of 45.0-49.9, adult ED Provider Note CHIEF COMPLAINT: Chest pain, hypertension HISTORY OF PRESENT ILLNESS: This 57-year-old male patient past medical history of hypertension, neuroendocrine cancer, coronary artery disease, diabetes type 2, dyslipidemia, status post nephrectomy/partial pancreatectomy, diastolic heart failure, abdominal wall hernia presents to the emergency department with complaints of substernal chest pressure, some jaw irritability. He states he has had a heart attack in the past and this does not feel similar. He does check his blood pressure quite frequently at home and it was noted to be elevated at approximately 200 systolic. The patient took a second 20 mg lisinopril. He denies symptoms at this time. He has no headache or chest pain or shortness of breath. He states he has been under quite a bit of stress lately with his own health, the loss of his dog and failing health of an uncle. REVIEW OF SYSTEMS: A review of systems was performed with positives and pertinent negatives listed in the history of present illness. 10 systems were reviewed and are otherwise negative. ALLERGIES: see below MEDICATIONS: see below PMH: see below SOCIAL HISTORY: see below DDx: Cardiac ischemia, aortic dissection, pneumothorax, pericarditis, GERD, pancreatitis, musculoskeletal, as well as other pathologies. PHYSICAL EXAM: Vital signs reviewed. General: Generally well-appearing. Obese 57-year-old male, in no significant distress. HEENT: No scleral icterus, PERRLA, neck supple. Atraumatic. Cardiovascular: Regular rate and rhythm, no extra sounds. Pulmonary: Clear to auscultation bilaterally, normal work of breathing. Abdomen: Soft, obese, nontender, nondistended, positive bowel sounds. Musculoskeletal: Atraumatic, mild peripheral edema, symmetric. Neurologic: Patient awake alert and oriented x 3, speech is clear Skin: Warm, dry, no rash EMERGENCY DEPARTMENT COURSE/MDM: This patient was evaluated and appeared to be in no significant distress. IV access was obtained and laboratory work was drawn. Patient was placed on the monitoring specialist noted to be in a normal sinus rhythm. EKG reveals no evidence of acute ischemic change. Chest x-ray was obtained and is clear. Patient's blood pressure had improved tremendously with appropriately sized cuff. I suspect his extra dose of lisinopril he took prior to leaving home has now kicked in. Patient's initial troponin is 10 with a repeat of 15 at 2 hours. While this does not represent a rule in, he is trending up. Patient has a history of extensive cardiac disease with most recent catheterization in November 2021 with stent placement. I suspect this is likely secondary to his hypertensive episode however he will be evaluated by the hospitalist service for further management. Patient is aware of the plan and agreed. MONITORING: An order for cardiac monitoring was placed and the patient is noted to be in a normal sinus rhythm at 73 beats per minute. RADIOLOGY: Chest x-ray to my interpretation reveals evidence of cardiomegaly with mild pulmonary vascular congestion, no focal lung consolidation or failure. EKG: To my interpretation reveals a sinus rhythm with first-degree AV block and premature supraventricular complexes at 61 bpm. When compared to previous dated December 25, 2021, premature supraventricular complexes are new, otherwise no significant change. DISPOSITION: Admission Past Med/Surg History Medical History Acquired renal cyst Allergic rhinitis CAD (coronary artery disease) "2004 - inferior wall [place], s/p BARI to proximal mid RCA 08/2011 - BARI x 2 to mid left circumflex 10/2011 - cath negative for stent restenosis, showed diffuse minor luminal irregularities 09/2012 - cath showed nonobstructive CAD with patent stents" On 11/20/16 13:28 Cecelia Humphrey wrote "2004 - inferior wall [place], s/p BARI to proximal mid RCA " Calculus of kidney Deviated septum Diastolic heart failure DM type 2 (diabetes mellitus, type 2) Hidradenitis suppurativa HTN (hypertension) Hypertrophy of both inferior nasal turbinates Neuroendocrine cancer Renal cell carcinoma Sleep apnea Surgical History H/O colonoscopy (2007) H/O hernia repair H/O knee surgery H/O splenectomy History of cardiac catheterization (12/24/21) multiple 12/24/21 Dr. Major - Coronary Angiography, Left Heart Cath, Drug Eluting Stent, Ultrasound Guided Vascular Access and IVUS History of nasal septoplasty History of nephrectomy renal cryoablation History of partial pancreatectomy S/P nasal surgery Family History Grandmother Cardiac disorder Unknown Breast cancer Aunt Cardiac disorder Denies family history of Prostate cancer Social History Smoking Status: Former smoker Tobacco Type: Cigarettes Hx Alcohol Use: Yes Alcohol type: beer Hx Substance Use: No Preferred Language: Swedish Communication Ability: Effective Glass Bulb Silverer Required: No Beliefs That Will Affect Care: None Current Living Situation: Family Current Living Situation Comment: lives with uncle current occupational status: employed 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 Feels Safe at Home: Yes Assistive Devices: None Allergies Allergies Allergy/AdvReac Type Severity Reaction Status Date / Time celecoxib [From Celebrex] AdvReac Intermediate Rash Verified 08/13/22 09:19 Home Meds Home Medications Medication Instructions Recorded Confirmed clopidogrel 75 mg tablet 75 mg PO QAM 11/25/18 09/30/22 fluticasone propionate 50 2 spray intranasal BID #1 g 11/25/18 09/30/22 mcg/actuation nasal spray,suspension metformin 1,000 mg tablet 1,000 mg PO BID 11/25/18 09/30/22 nitroglycerin 0.4 mg sublingual 0.4 mg sublingual Q5M PRN Chest 11/25/18 09/30/22 tablet Pain omega-3 acid ethyl esters 1 gram 1 cap PO DAILY 11/25/18 09/30/22 capsule tamsulosin 0.4 mg capsule 0.4 mg PO HS #90 caps 11/25/18 09/30/22 azelastine 137 mcg (0.1 %) nasal 2 sprays intranasal BID 12/23/21 09/30/22 spray aerosol furosemide 20 mg tablet 20 mg PO QAM PRN Edema 12/23/21 09/30/22 atorvastatin 40 mg tablet 40 mg PO QAM 08/12/22 09/30/22 insulin glargine 100 unit/mL 70 unit subcut HS 08/12/22 09/30/22 subcutaneous solution aspirin 81 mg tablet,delayed 81 mg PO QAM 09/30/22 09/30/22 release insulin aspart U-100 100 unit/mL 0 unit subcut AC 09/30/22 09/30/22 subcutaneous solution (Novolog U-100 Insulin aspart) lisinopril 20 mg tablet 20 mg PO QAM 09/30/22 09/30/22 metoprolol succinate 50 mg 75 mg PO QAM 09/30/22 09/30/22 tablet,extended release 24 hr Previous Rx's Medication Instructions Recorded peg 3350-electrolytes 236 240 ml PO Q10M #4,000 mL 09/23/22 gram-22.74 gram-6.74 gram-5.86 gram solution (Golytely) Results & Data (ED) Vital Signs Vital Signs - 24 hr 09/30/22 00:09 09/30/22 00:34 09/30/22 00:24 Temperature 36.7 C Temperature Source Oral Pulse Rate 59 L 73 58 L Pulse Rate [Finger] Pulse Rhythm Regular Regular Pulse Rhythm [Finger] Pulse Strength Normal Respiratory Rate 18 22 Respiratory Effort / Characteristics Non-Labored Spontaneous Respiratory Depth Normal Respiratory Pattern Regular Blood Pressure 166/83 H Blood Pressure [Right Arm] Blood Pressure Mean 110 Blood Pressure Mean [Right Arm] Blood Pressure Position Sitting Blood Pressure Position [Right Arm] Pulse Oximetry 96 98 Oxygen Delivery Method Room Air Room Air Sepsis Recent Fever Within 48 Hours No Sepsis New/Unexplained Change in Mental Status No Sepsis Action Taken by Nursing No Action Required 09/30/22 00:24 09/30/22 00:33 09/30/22 01:00 Temperature Temperature Source Pulse Rate 60 65 Pulse Rate [Finger] Pulse Rhythm Pulse Rhythm [Finger] Pulse Strength Respiratory Rate 18 18 Respiratory Effort / Characteristics Respiratory Depth Respiratory Pattern Blood Pressure 134/68 138/58 L Blood Pressure [Right Arm] Blood Pressure Mean 94 94 Blood Pressure Mean [Right Arm] Blood Pressure Position Blood Pressure Position [Right Arm] Pulse Oximetry 95 95 Oxygen Delivery Method Room Air Room Air Room Air Sepsis Recent Fever Within 48 Hours Sepsis New/Unexplained Change in Mental Status Sepsis Action Taken by Nursing 09/30/22 01:30 09/30/22 02:20 09/30/22 04:00 Temperature Temperature Source Pulse Rate 58 L 51 L Pulse Rate [Finger] 50 L Pulse Rhythm Pulse Rhythm [Finger] Regular Pulse Strength Respiratory Rate 20 22 18 Respiratory Effort / Characteristics Non-Labored Spontaneous Respiratory Depth Normal Respiratory Pattern Regular Blood Pressure 145/62 H 137/57 L Blood Pressure [Right Arm] 143/66 H Blood Pressure Mean 103 83 Blood Pressure Mean [Right Arm] 91 Blood Pressure Position Blood Pressure Position [Right Arm] Lying Pulse Oximetry 95 95 95 Oxygen Delivery Method Room Air Room Air Room Air Sepsis Recent Fever Within 48 Hours Sepsis New/Unexplained Change in Mental Status Sepsis Action Taken by Nursing 09/30/22 04:28 09/30/22 02:30 09/30/22 03:00 Temperature Temperature Source Pulse Rate 51 L 56 L 54 L Pulse Rate [Finger] Pulse Rhythm Pulse Rhythm [Finger] Pulse Strength Respiratory Rate 21 24 Respiratory Effort / Characteristics Respiratory Depth Respiratory Pattern Blood Pressure 156/73 H 161/61 H Blood Pressure [Right Arm] Blood Pressure Mean 100 94 Blood Pressure Mean [Right Arm] Blood Pressure Position Blood Pressure Position [Right Arm] Pulse Oximetry 95 96 Oxygen Delivery Method Sepsis Recent Fever Within 48 Hours Sepsis New/Unexplained Change in Mental Status Sepsis Action Taken by Nursing 09/30/22 03:30 09/30/22 04:15 09/30/22 04:30 Temperature Temperature Source Pulse Rate 57 L 53 L 49 L Pulse Rate [Finger] Pulse Rhythm Pulse Rhythm [Finger] Pulse Strength Respiratory Rate 19 16 19 Respiratory Effort / Characteristics Respiratory Depth Respiratory Pattern Blood Pressure 156/85 H 143/66 H 149/87 H Blood Pressure [Right Arm] Blood Pressure Mean 108 91 107 Blood Pressure Mean [Right Arm] Blood Pressure Position Blood Pressure Position [Right Arm] Pulse Oximetry 96 97 96 Oxygen Delivery Method Sepsis Recent Fever Within 48 Hours Sepsis New/Unexplained Change in Mental Status Sepsis Action Taken by Nursing 09/30/22 05:00 Temperature Temperature Source Pulse Rate 51 L Pulse Rate [Finger] Pulse Rhythm Pulse Rhythm [Finger] Pulse Strength Respiratory Rate 17 Respiratory Effort / Characteristics Respiratory Depth Respiratory Pattern Blood Pressure 145/76 H Blood Pressure [Right Arm] Blood Pressure Mean 99 Blood Pressure Mean [Right Arm] Blood Pressure Position Blood Pressure Position [Right Arm] Pulse Oximetry 94 Oxygen Delivery Method Sepsis Recent Fever Within 48 Hours Sepsis New/Unexplained Change in Mental Status Sepsis Action Taken by [facility] Medications Current Medication List: was personally reviewed by me Laboratory Data Attestation: I reviewed the patient's lab results. 09/30/22 00:30 09/30/22 00:30 Lab Results 09/30/22 09/30/22 09/30/22 Range/Units 00:30 00:30 01:55 WBC 11.60 H (4.8-10.8) K/ul RBC 4.66 L (4.70-6.10) M/uL Hgb 14.4 (14.0-18.0) g/dl Hct 41.4 L (42.0-52.0) % MCV 88.8 (80.0-100.0) fL MCH 30.9 (25.0-34.0) pg MCHC 34.8 (32.0-36.0) g/dL RDW Std Deviation 45.1 (36.4-46.3) fL RDW Coeff of Rosy 14.0 (11.5-14.5) % Plt Count 402 H (130-400) K/uL MPV 9.1 L (9.4-12.4) fL Immature Gran % (Auto) 0.3 % Neut % (Auto) 42.9 % Lymph % (Auto) 43.4 % Mccracken % (Auto) 11.0 % Eos % (Auto) 1.9 % Baso % (Auto) 0.5 % Neut # (Auto) 4.98 (1.40-6.50) K/uL Lymph # (Auto) 5.03 H (1.2-3.4) K/uL Mccracken # (Auto) 1.28 H (0.11-0.59) K/uL Eos # (Auto) 0.22 (0-0.50) K/uL Baso # (Auto) 0.06 (0-0.2) K/uL Immature Gran # (Auto) 0.03 (0.01-0.20) K/uL Echinocytes 1+ Sodium 136 (136-145) mmol/L Potassium 3.8 (3.5-5.1) mmol/L Chloride 104 (98-107) mmol/L Carbon Dioxide 25 (21-32) mmol/L Anion Gap 7 (3-11) BUN 22 (6-23) mg/dl Creatinine 0.94 (0.6-1.4) mg/dl Est Cr Clr Drug Dosing 124.8 ml/min Est GFR ( Amer) 103.2 ml/min Est GFR (Non-Af Amer) 89.0 ml/min BUN/Creatinine Ratio 23.4 H (10-20) Glucose 149 H (70-99(Fasting)) mg/dl Calcium 9.5 (8.6-10.3) mg/dl Total Bilirubin 0.3 (0.2-1.0) mg/dl AST 31 (13-39) U/L ALT 56 H (7-52) U/L Alkaline Phosphatase 50 (34-104) U/L Troponin I High Sens 10.7 (0-20) pg/ml Total Protein 7.6 (6.0-8.3) gm/dl Albumin 3.8 (3.4-5.0) gm/dl Globulin 3.8 (2.5-4.0) gm/dl Albumin/Globulin Ratio 1.0 (0.9-2) Lipase 30 (11-82) U/L SARS-CoV-2, RNA, NAAT NEGATIVE (NEGATIVE) 09/30/22 Range/Units 02:18 WBC (4.8-10.8) K/ul RBC (4.70-6.10) M/uL Hgb (14.0-18.0) g/dl Hct (42.0-52.0) % MCV (80.0-100.0) fL MCH (25.0-34.0) pg MCHC (32.0-36.0) g/dL RDW Std Deviation (36.4-46.3) fL RDW Coeff of Rosy (11.5-14.5) % Plt Count (130-400) K/uL MPV (9.4-12.4) fL Immature Gran % (Auto) % Neut % (Auto) % Lymph % (Auto) % Mccracken % (Auto) % Eos % (Auto) % Baso % (Auto) % Neut # (Auto) (1.40-6.50) K/uL Lymph # (Auto) (1.2-3.4) K/uL Mccracken # (Auto) (0.11-0.59) K/uL Eos # (Auto) (0-0.50) K/uL Baso # (Auto) (0-0.2) K/uL Immature Gran # (Auto) (0.01-0.20) K/uL Echinocytes Sodium (136-145) mmol/L Potassium (3.5-5.1) mmol/L Chloride (98-107) mmol/L Carbon Dioxide (21-32) mmol/L Anion Gap (3-11) BUN (6-23) mg/dl Creatinine (0.6-1.4) mg/dl Est Cr Clr Drug Dosing ml/min Est GFR ( Amer) ml/min Est GFR (Non-Af Amer) ml/min BUN/Creatinine Ratio (10-20) Glucose (70-99(Fasting)) mg/dl Calcium (8.6-10.3) mg/dl Total Bilirubin (0.2-1.0) mg/dl AST (13-39) U/L ALT (7-52) U/L Alkaline Phosphatase (34-104) U/L Troponin I High Sens 15.3 D (0-20) pg/ml Total Protein (6.0-8.3) gm/dl Albumin (3.4-5.0) gm/dl Globulin (2.5-4.0) gm/dl Albumin/Globulin Ratio (0.9-2) Lipase (11-82) U/L SARS-CoV-2, RNA, NAAT (NEGATIVE) Administered Medications Discontinued Medications Aspirin (Aspirin Chew 324 Mg) 324 mg PO NOW STA Stop: 09/30/22 00:25 Last Admin: 09/30/22 01:16 Dose: Not Given Documented By: CLAUDIA Aspirin (Aspirin Chew 324 Mg) 243 mg PO NOW STA Stop: 09/30/22 00:36 Last Admin: 09/30/22 01:15 Dose: 243 mg Documented By: CLAUDIA Imaging Data Radiologist's Impression: Chest X-Ray 09/30/22 00:24 XR chest 1V portable CLINICAL HISTORY: Chest pain, nonspecific COMPARISON STUDY: Chest radiograph December 23, 2021. FINDINGS: No pneumothorax or pleural effusion is present. Cardiomegaly is unchanged. Mediastinal contours are unchanged. There is no evidence for pulmonary edema or pneumonia. IMPRESSION: No acute cardiopulmonary findings. Stable cardiomegaly. No change in appearance of the chest. ACT 112: Negative or not required by law. Electronically signed by: Marcos Acosta M.D. 09/30/2022 7:15 AM Discharge Plan Visit Data Chief Complaint: Chest Pain Stated Complaint: CHEST PAIN,HIGH BLOOD PRESSURE,JAW SPASMS ED Provider: Lisa Morin Discharge Problem: Hypertension, Precordial chest pain, Morbid obesity with BMI of 45.0-49.9, adult Discharge Instructions Interventions: ED Discharge Assessment Last Done: 09/30/22 05:48
[2022-09-30 01:25] LABS: Basophils # (auto) 0.06 K/uL (0-0.2); Basophils % (auto) 0.5 %; Echinocytes 1+; Eosinophils # (auto) 0.22 K/uL (0-0.50); Eosinophils % (auto) 1.9 %; Immature Granulocytes # (auto) 0.03 K/uL (0.01-0.20); Immature Granulocytes % (auto) 0.3 %; Lymphocytes # (auto) 5.03 K/uL (1.2-3.4); Lymphocytes % (auto) 43.4 %; Monocytes # (auto) 1.28 K/uL (0.11-0.59); Neutrophils # (auto) 4.98 K/uL (1.40-6.50); Neutrophils % (auto) 42.9 %
[2022-09-30] MEDS ORDERED: ONDANSETRON INJ 2 MG/ML 2 ML VIAL IV PRN (05:47)
[2022-09-30] MEDS ORDERED: GLUCAGON FOR INJ 1 MG VIAL SQ PRN (05:47)
[2022-09-30] MEDS ORDERED: ACETAMINOPHEN 325 MG TAB PO PRN (05:47)
[2022-09-30] MEDS ORDERED: GLUCOSE 40% GEL 15 GM TUBE PO PRN (05:47)
[2022-09-30] MEDS ORDERED: NITROGLYCERIN SL 0.4 MG/TAB TAB SL PRN (05:47)
[2022-09-30] MEDS ORDERED: LAVAGE SOLUTION 4000ML PO SCH (05:47)
[2022-09-30] MEDS ORDERED: DEXTROSE 50% 50 ML SYRINGE IV PRN (05:47)
[2022-09-30] MEDS ORDERED: GLUCOSE 10 TAB/TUBE PO PRN (05:47)
[2022-09-30] MEDS ORDERED: CARBOHYDRATES FOR HYPOGLYCEMIA PO PRN (05:47)
--- NOTE | 2022-09-30 06:07 | History & Physical Report ---
Date of Service September 30, 2022 Assessment & Plan (1) DM type 2 (diabetes mellitus, type 2): (2) Dyslipidemia: (3) Neuroendocrine cancer: (4) CAD (coronary artery disease): (5) HTN (hypertension): (6) History of nephrectomy: (7) Elevated blood pressure reading with diagnosis of hypertension: (8) Hypercholesterolemia: (9) Diastolic heart failure: (10) Sleep apnea: (11) Renal cell carcinoma: Plan Blood pressure elevation/CAD/stented coronary artery/hypertension- The patient will be admitted to telemetry for serial cardiac enzymes, serial EKG's, cardiac rhythm monitoring and complete echo Patient underwent successful PCI of proximal distal RCA with 2 drug-eluting stents on 12/24/[address] Chad Major His blood pressure has been elevated in the outpatient setting, initially noted when he went to [facility] for preop for upcoming abdominal hernia repai r surgery He was told that he needs to get cardiac clearance before surgery can be entertained. He had multiple stressors at home causing his blood pressure to be elevated, and this evening it increased to systolic of 200s with palpitations, and he came to the ED for assessment. He did however take an additional lisinopril 20 mg prior to leaving home, and his blood pressure has been in the upper 140s systolic since he has been in the ED While I observed his heart rhythm in the ED, he appeared to have a brief episode of atrial fibrillation with controlled heart rate in the 60s. He would like to change his cardiology care to Dr. Chad Major, who performed the above stent replacement, and will be consulted to see patient this admission Continue aspirin 81 mg every morning, clopidogrel 75 mg every morning, metoprolol succinate 75 mg every morning, nitroglycerin sublingual as needed. He did give himself an additional lisinopril 20 mg this evening, and for now, will increase his lisinopril from 20 mg every morning to twice daily Diabetes mellitus- Continue insulin glargine 70 units subcu at bedtime Placed on Accu-Cheks with NovoLog SSI Hold metformin Hyperlipidemia- Continue atorvastatin 40 mg every morning History of multiple abdominal surgeries leading to abdominal wall hernias- Nephrectomy, splenectomy, partial pancreatectomy, hernia repair He is being considered for surgical repair at [facility] BPH- Continue tamsulosin 0.4 mg at bedtime Admission and Anticipated Discharge Date Admission Date: September 30, 2022 History of Present Illness Chief Complaint: The patient presents to the emergency department with concerns regarding increasing blood pressure as he went to bed this evening, that he associates with increasing stress from multiple factors Primary Care Provider: Sean Griggs DO The patient is a 57-year-old male with a past medical history including diabetes mellitus type 2, dyslipidemia, neuroendocrine cancer, CAD with stents, hypertension, history of nephrectomy, history of splenectomy, history of partial pancreatectomy, hypercholesterolemia, HFpEF, FRANCESCO, multiple abdominal wall hernias and obesity. The patient has had multiple stressors with taking care of her sick uncle locally, and supervising his sick aunt in [place], and other issues at home. He attributes all of these factors to causing his blood press ure to be more elevated recently. He was to undergo a revision of his hernias at [facility], but when he went there, his systolic blood pressure was in the 190s, and they told him to get his blood pressure controlled and get cardiac clearance before he would go back there again. He is not following his blood pressure at home, and earlier this evening was in the 150s to 160s, and then after going to bed he felt his heart thumping, and checked his blood pressure and systolic it increased to 200s. With that number, he decided come to the ED for assessment this evening. He reports that he started to feel better says he walked in the door of the hospital. He did take an additional lisinopril 20 mg around 11:[address] His PCP Dr. Griggs and had recently increased his lisinopril from 10 to 20 mg in the outpatient setting. Allergies Allergy/AdvReac Type Severity Reaction Status Date / Time celecoxib [From Celebrex] AdvReac Intermediate Rash Verified 08/13/22 09:19 Home Medications Medication Instructions Recorded Confirmed Type clopidogrel 75 mg tablet 75 mg PO QAM 11/25/18 09/30/22 History fluticasone propionate 50 2 spray intranasal BID #1 g 11/25/18 09/30/22 History mcg/actuation nasal spray,suspension metformin 1,000 mg tablet 1,000 mg PO BID 11/25/18 09/30/22 History nitroglycerin 0.4 mg sublingual 0.4 mg sublingual Q5M PRN Chest 11/25/18 09/30/22 History tablet Pain omega-3 acid ethyl esters 1 gram 1 cap PO DAILY 11/25/18 09/30/22 History capsule tamsulosin 0.4 mg capsule 0.4 mg PO HS #90 caps 11/25/18 09/30/22 History azelastine 137 mcg (0.1 %) nasal 2 sprays intranasal BID 12/23/21 09/30/22 History spray aerosol furosemide 20 mg tablet 20 mg PO QAM PRN Edema 12/23/21 09/30/22 History atorvastatin 40 mg tablet 40 mg PO QAM 08/12/22 09/30/22 History insulin glargine 100 unit/mL 70 unit subcut HS 08/12/22 09/30/22 History subcutaneous solution peg 3350-electrolytes 236 240 ml PO Q10M #4,000 mL 09/23/22 09/30/22 Rx gram-22.74 gram-6.74 gram-5.86 gram solution (Golytely) aspirin 81 mg tablet,delayed 81 mg PO QAM 09/30/22 09/30/22 History release insulin aspart U-100 100 unit/mL 0 unit subcut AC 09/30/22 09/30/22 History subcutaneous solution (Novolog U-100 Insulin aspart) lisinopril 20 mg tablet 20 mg PO QAM 09/30/22 09/30/22 History metoprolol succinate 50 mg 75 mg PO QAM 09/30/22 09/30/22 History tablet,extended release 24 hr Past Med/Surg History Medical History (Updated 09/30/22 @ 05:57 by Nick Dietz MD) Acquired renal cyst Allergic rhinitis CAD (coronary artery disease) "2004 - inferior wall SD, s/p BARI to proximal mid RCA 08/2011 - BARI x 2 to mid left circumflex 10/2011 - cath negative for stent restenosis, showed diffuse minor luminal irregularities 09/2012 - cath showed nonobstructive CAD with patent stents" On 11/20/16 13:28 Cecelia Humphrey wrote "2004 - inferior wall SD, s/p BARI to proximal mid RCA " Calculus of kidney Deviated septum Diastolic heart failure DM type 2 (diabetes mellitus, type 2) Hidradenitis suppurativa HTN (hypertension) Hypertrophy of both inferior nasal turbinates Neuroendocrine cancer Renal cell carcinoma Sleep apnea Surgical History (Updated 08/13/22 @ 10:21 by Cristiane aPinter RN) H/O colonoscopy (2007) H/O hernia repair H/O knee surgery H/O splenectomy History of cardiac catheterization (12/24/21) multiple 12/24/21 Dr. Major - Coronary Angiography, Left Heart Cath, Drug Eluting Stent, Ultrasound Guided Vascular Access and IVUS History of nasal septoplasty History of nephrectomy renal cryoablation History of partial pancreatectomy S/P nasal surgery Family History Grandmother Cardiac disorder Unknown Breast cancer Aunt Cardiac disorder Denies family history of Prostate cancer Social History Smoking Status: Former smoker Tobacco Type: Cigarettes Hx Alcohol Use: Yes Alcohol type: beer Hx Substance Use: No Preferred Language: Yoruba Communication Ability: Effective Machining Engineer Required: No Beliefs That Will Affect Care: None Current Living Situation: Family Current Living Situation Comment: lives with uncle current occupational status: employed 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 Feels Safe at Home: Yes Assistive Devices: None Review of Systems Review of Systems: The patient denies shortness of breath, dyspnea on exertion, cough, lower extremity swelling, sore throat, fevers, chills, sweats, nausea, vomiting, diarrhea , constipation, abdominal pain, pelvic pain, blood in urine or stool, dysuria, urinary frequency or urgency, lightheadedness, dizziness, headache, memory loss, loss of consciousness, rash, abnormal bruising or bleeding, imbalance, focal or generalized weakness, numbness or tingling in arms or legs, generalized arthralgias or myalgias, back or neck pain, or night sweats. The review of systems is otherwise negative other than for that already noted above, and at least 10 systems have been reviewed. Physical Exam Physical Exam: The patient is awake, alert and oriented 3, normocephalic and atraumatic, lying in bed and in no acute distress. HEENT--PERRL, EOMI, mucous membranes and oropharynx normal. Neck--supple. No JVD. No bruits. Thyroid normal, trachea midline, no adenopathy. Heart--normal S1 and S2. No murmurs, rubs or gallops. Lungs--clear bilaterally, no respiratory distress, no accessory muscle use. Abdomen--normal bowel sounds and soft. Nontender. Nondistended. Morbidly obese with BMI 46.8 Extremities--no cyanosis or clubbing. No edema. Dermatologic--normal skin turgor, normal color, no abnormal lymph nodes, no rash. Neurologic--cranial nerves II through XII grossly intact. Rheumatologic--normal range of motion. Limited exam Psychiatric--normal affect. Results & Data Results & Data Vital Signs (Past 12 Hours) Vital Signs Temp Pulse Pulse Resp BP BP Pulse Ox 09/30/22 04:28 51 L 09/30/22 04:00 50 L 18 143/66 H 95 09/30/22 02:20 51 L 22 137/57 L 95 09/30/22 01:30 58 L 20 145/62 H 95 09/30/22 01:00 65 18 138/58 L 95 09/30/22 00:33 60 18 134/68 95 09/30/22 00:24 09/30/22 00:24 58 L 22 98 09/30/22 00:34 73 09/30/22 00:09 36.7 C 59 L 18 166/83 H 96 O2 Del Method 09/30/22 04:28 09/30/22 04:00 Room Air 09/30/22 02:20 Room Air 09/30/22 01:30 Room Air 09/30/22 01:00 Room Air 09/30/22 00:33 Room Air 09/30/22 00:24 Room Air 09/30/22 00:24 Room Air 09/30/22 00:34 09/30/22 00:09 Room Air Laboratory Results Laboratory Results WBC 11.60 K/ul (4.8-10.8) H 09/30/22 00:30 RBC 4.66 M/uL (4.70-6.10) L 09/30/22 00:30 Hgb 14.4 g/dl (14.0-18.0) 09/30/22 00:30 Hct 41.4 % (42.0-52.0) L 09/30/22 00:30 MCV 88.8 fL (80.0-100.0) 09/30/22 00:30 MCH 30.9 pg (25.0-34.0) 09/30/22 00:30 MCHC 34.8 g/dL (32.0-36.0) 09/30/22 00:30 RDW Std Deviation 45.1 fL (36.4-46.3) 09/30/22 00:30 RDW Coeff of Rosy 14.0 % (11.5-14.5) 09/30/22 00:30 Plt Count 402 K/uL (130-400) H 09/30/22 00:30 MPV 9.1 fL (9.4-12.4) L 09/30/22 00:30 Immature Gran % (Auto) 0.3 % 09/30/22 00:30 Neut % (Auto) 42.9 % 09/30/22 00:30 Lymph % (Auto) 43.4 % 09/30/22 00:30 Nance % (Auto) 11.0 % 09/30/22 00:30 Eos % (Auto) 1.9 % 09/30/22 00:30 Baso % (Auto) 0.5 % 09/30/22 00:30 Neut # (Auto) 4.98 K/uL (1.40-6.50) 09/30/22 00:30 Lymph # (Auto) 5.03 K/uL (1.2-3.4) H 09/30/22 00:30 Nance # (Auto) 1.28 K/uL (0.11-0.59) H 09/30/22 00:30 Eos # (Auto) 0.22 K/uL (0-0.50) 09/30/22 00:30 Baso # (Auto) 0.06 K/uL (0-0.2) 09/30/22 00:30 Immature Gran # (Auto) 0.03 K/uL (0.01-0.20) 09/30/22 00:30 Echinocytes 1+ 09/30/22 00:30 Sodium 136 mmol/L (136-145) 09/30/22 00:30 Potassium 3.8 mmol/L (3.5-5.1) 09/30/22 00:30 Chloride 104 mmol/L (98-107) 09/30/22 00:30 Carbon Dioxide 25 mmol/L (21-32) 09/30/22 00:30 Anion Gap 7 (3-11) 09/30/22 00:30 BUN 22 mg/dl (6-23) 09/30/22 00:30 Creatinine 0.94 mg/dl (0.6-1.4) 09/30/22 00:30 Est Cr Clr Drug Dosing 124.8 ml/min 09/30/22 00:30 Est GFR ( Amer) 103.2 ml/min 09/30/22 00:30 Est GFR (Non-Af Amer) 89.0 ml/min 09/30/22 00:30 BUN/Creatinine Ratio 23.4 (10-20) H 09/30/22 00:30 Glucose 149 mg/dl (70-99(Fasting)) H 09/30/22 00:30 Calcium 9.5 mg/dl (8.6-10.3) 09/30/22 00:30 Total Bilirubin 0.3 mg/dl (0.2-1.0) 09/30/22 00:30 AST 31 U/L (13-39) 09/30/22 00:30 ALT 56 U/L (7-52) H 09/30/22 00:30 Alkaline Phosphatase 50 U/L (34-104) 09/30/22 00:30 Troponin I High Sens 15.3 pg/ml (0-20) D 09/30/22 02:18 Total Protein 7.6 gm/dl (6.0-8.3) 09/30/22 00:30 Albumin 3.8 gm/dl (3.4-5.0) 09/30/22 00:30 Globulin 3.8 gm/dl (2.5-4.0) 09/30/22 00:30 Albumin/Globulin Ratio 1.0 (0.9-2) 09/30/22 00:30 Lipase 30 U/L (11-82) 09/30/22 00:30 SARS-CoV-2, RNA, NAAT NEGATIVE (NEGATIVE) 09/30/22 01:55 Code Status & VTE Plan Code Status Full code VTE Prophylaxis Plan VTE Prophylaxis will be ordered: Yes PG Care Time/CCT Total # of Minutes Spent Total Time Spent with Patient: Total time spent is greater than 50% in coordination of care (as documented) at patient's floor/unit and/or counseling patient: Coding Level of Care Code 89481 INT INP/OBS CARE 3/75MIN Diagnoses DM type 2 (diabetes mellitus, type 2) E11.9 Dyslipidemia E78.5 Neuroendocrine cancer C7A.8 CAD (coronary artery disease) I25.10 HTN (hypertension) I10 History of nephrectomy Z90.5 Elevated blood pressure reading with diagnosis of hypertension I10 Hypercholesterolemia E78.00 Diastolic heart failure I50.30 Sleep apnea G47.30 Renal cell carcinoma C64.9
--- NOTE | 2022-09-30 07:16 | XRay Report ---
XR chest 1V portable CLINICAL HISTORY: Chest pain, nonspecific COMPARISON STUDY: Chest radiograph December 23, 2021. FINDINGS: No pneumothorax or pleural effusion is present. Cardiomegaly is unchanged. Mediastinal cont ours are unchanged. There is no evidence for pulmonary edema or pneumonia. IMPRESSION: No acute cardiopulmonary findings. Stable cardiomegaly. No change in appearance of the c hest. ACT 112: Negative or not required by law. Electronically signed by: Marcos Acosta M.D. 09/30/2022 7:15 AM
[2022-09-30] MEDS ORDERED: metFORMIN HCL 500 MG TAB PO SCH (08:00)
[2022-09-30] MEDS: INSULIN ASPART PER UNIT CHARGE SC SCH ×2 (08:55→14:32)
[2022-09-30] MEDS ORDERED: ATORVASTATIN 40 MG TAB PO SCH (09:00)
[2022-09-30] MEDS ORDERED: ASPIRIN 81 MG ECTAB PO SCH (09:00)
[2022-09-30] MEDS ORDERED: lisinopril 20 MG TAB PO SCH (09:00)
[2022-09-30] MEDS ORDERED: METOPROLOL SUCC 25MG EXT REL TAB PO SCH (09:00)
[2022-09-30] MEDS ORDERED: OMEGA-3 (PURIFIED FISH OIL) 1 GM CAP PO SCH (09:00)
[2022-09-30] MEDS ORDERED: CLOPIDOGREL BISULFATE 75 MG TAB PO SCH (09:00)
--- NOTE | 2022-09-30 09:45 | History & Physical Bridge Note ---
Date of Service September 30, 2022 History & Physical Bridge Note I have examined the patient, reviewed the History & Physical and in the interval since the performance of the History & Physical I have noted the following changes of clinical significance: no changes noted Patient evaluated in C2B, reports having lisinopril increased around the 01/[address] Hoskins when he questioned, reporting takes about a week to have full effect. He notes that he had seen in Dr Hoskins notes about daily asa 81mg daily as well as rx for Imdur however he messaged Joe Bermudez/office about this as never received at the [facility]. He reported associated pressure/jaw discomfort last evening with BP 200s/100s. He notes he took lisinopril but after worn off recurrence of symptoms. Not at present. He bigeminy, symptomatic with this. Sinus on monitor Dr Major consulted while inpatient as wanting to switch groups and he did his prior stent to proximal distal RVA w/ 2 BARI in November 2021. On aspirin/plavix BP currently 152/82 at present and will monitor. Not on tx for FRANCESCO, will obtain overnight sleep study/repeat ECHO for completeness Trop w/o significant elevation but continued rise and will monitor repeat this afternoon Defer starting imdur based on recurrence of symptoms/eval by Dr Major.
[2022-09-30] MEDS ORDERED: MAGNESIUM SULFATE / D5W 1 GM/100 ML BAG IV ONE (12:09)
[2022-09-30 13:13] LABS: BUN Creatinine Ratio 18.3 (10-20); Calcium 9.3 mg/dl (8.6-10.3); Creatinine Clr Calc Pharmacy 126.1 ml/min; Est GFR (African American) 104.5 ml/min; Est GFR (Non-African American) 90.2 ml/min; Magnesium 1.9 mg/dl (1.7-2.4)
[2022-09-30 13:19] LABS: Troponin I High Sensitivity 15.5 pg/ml (0-20)
--- NOTE | 2022-09-30 13:23 | XCELERA ---
[id number] \\[email or web address]\[id number]
--- NOTE | 2022-09-30 14:54 | Discharge Summary ---
Date of Service September 30, 2022 Admission HPI Per Admitting Provider The patient is a 57-year-old male with a past medical history including diabetes mellitus type 2, dyslipidemia, neuroendocrine cancer, CAD with stents, hypertension, history of nephrectomy, history of splenectomy, history of partial pancreatectomy, hypercholesterolemia, HFpEF, FRANCESCO, multiple abdominal wall hernias and obesity. The patient has had multiple stressors with taking care of her sick uncle locally, and supervising his sick aunt in [place], and other issues at home. He attributes all of these factors to causing his blood pressure to be more elevated recently. He was to undergo a revision of his her nias at [facility], but when he went there, his systolic blood pressure was in the 190s, and they told him to get his blood pressure controlled and get cardiac clearance before he would go back there again. He is not following his blood pressure at home, and earlier this evening was in the 150s to 160s, and then after going to bed he felt his heart thumping, and checked his blood pressure and systolic it increased to 200s. With that number, he decided come to the ED for assessment this evening. He reports that he started to feel better says he walked in the door of the hospital. He did take an additional lisinopril 20 mg around 11:[address] His PCP Dr. Griggs and had recently increased his lisinopril from 10 to 20 mg in the outpatient setting. Admission Exam Per Admitting Provider The patient is awake, alert and oriented 3, normocephalic and atraumatic, lying in bed and in no acute distress. HEENT--PERRL, EOMI, mucous membranes and oropharynx normal. Neck--supple. No JVD. No bruits. Thyroid normal, trachea midline, no adenopathy. Heart--normal S1 and S2. No murmurs, rubs or gallops. Lungs--clear bilaterally, no respiratory distress, no accessory muscle use. Abdomen--normal bowel sounds and soft. Nontender. Nondistended. Morbidly obese with BMI 46.8 Extremities--no cyanosis or clubbing. No edema. Dermatologic--normal skin turgor, normal color, no abnormal lymph nodes, no rash. Neurologic--cranial nerves II through XII grossly intact. Rheumatologic--normal range of motion. Limited exam Psychiatric--normal affect. Principal Diagnosis Hypertension Discharge Exam General: WD/WN obese male sitting up in bed, NAD HEENT: head normocephalic, atraumatic, mmm, trachea midline Resp: CTA, no w/c/r, on room air CV: RRR, no significant mrg, no pitting edema/calf tenderness GI+BS, soft, large hernia appreciated, no warmth/erythema, no rigidity/guarding : no henson MSK/Neuro: no focal deficit, no slurred speech, following commands, CN intact grossly Psych: AOx3, cooperative with exam. anxious about upcoming hernia repair Discharge Data Allergies Allergy/AdvReac Type Severity Reaction Status Date / Time celecoxib [From Celebrex] AdvReac Intermediate Rash Verified 08/13/22 09:19 Consultations 09/30/22 03:51 ED Decision to Admit Stat 09/30/22 05:47 Consult Cardiology Routine 09/30/22 05:49 Consult Cardiology Routine Ordered Studies Chest X-Ray 09/30/22 00:24 XR chest 1V portable CLINICAL HISTORY: Chest pain, nonspecific COMPARISON STUDY: Chest radiograph December 23, 2021. FINDINGS: No pneumothorax or pleural effusion is present. Cardiomegaly is unchanged. Mediastinal contours are unchanged. There is no evidence for pulmonary edema or pneumonia. IMPRESSION: No acute cardiopulmonary findings. Stable cardiomegaly. No change in appearance of the chest. ACT 112: Negative or not required by law. Electronically signed by: Marcos Acosta M.D. 09/30/2022 7:15 AM ECHOCARDIOGRAM Normal LV size, mild concentric LVH. LVEF 50-55%. No regional wma. RV mildly dilated. Normal RV function. Mild MR. Normal est RA and PA pressures. Compared to prior study in 2012, no significant change. Hospital Course (1) DM type 2 (diabetes mellitus, type 2): (2) Dyslipidemia: (3) Neuroendocrine cancer: (4) CAD (coronary artery disease): (5) HTN (hypertension): (6) History of nephrectomy: (7) Elevated blood pressure reading with diagnosis of hypertension: (8) Hypercholesterolemia: (9) Diastolic heart failure: (10) Sleep apnea: (11) Renal cell carcinoma: Plan Blood pressure elevation/CAD/stented coronary artery/hypertension- BP systolic 200s/100s at home, stress about upcoming surgery Troponin w/o significant elevation x 4, ECHO w/o significant change. No wma Cardiology consulted Lisinopril increased to 20mg PO BID -- continue increased dose at discharge. Also to continue new rx Imdur by Dr Gato Major reviewed telemetry/no fib, ok for discharge from cardiac standpoint and will arrange for outpatient stress testing Discussed w/ supervising provider and repeat BPs obtained w/ manual cuff in ER --> 152/78, 146/80 and stable for discharge. Discussed decreased dose Imdur to 30mg at discharge rather than 60mg and monitoring BP at home. If remains elevated can also increase to 60mg daily Continued on ASA/Plavix given prior stent in 2021 Nitro SL prn Also given short rx for 5 tablets of lorazepam given reports anxiety also contributing, also per Dr Major anxiety component. Had rx for such >1 year ago that lasted well over a year. Discussed f/u PCP regarding any continued use. Declined buspar but could have continued discussions outpatient Diabetes mellitus- Held home medications while inpatient and utilized sliding scale/glargine A1c 7.7 last month, no need for repeat Outpt f/u and resumed home medications Hyperlipidemia Lipid panel acceptable last month - TRG 93, chl 136, LDL 74,, HDL 43 Continued atorvastatin 40 mg every morning History of multiple abdominal surgeries leading to abdominal wall hernias- Nephrectomy, splenectomy, partial pancreatectomy, hernia repair He is being considered for surgical repair at [facility] Stress testing to be arranged by Dr Major outpatient for cardiac clearance. ECHO as above, troponins negative BPH- Continued tamsulosin 0.4 mg at bedtime Total Time Total Time Spent Total Time Spent (In Minutes): 45 Discharge Plan Discharge Items Patient Disposition: Home - Self-Care Reason For Visit: CHEST PAIN, UNCONTROLLED HTN Discharge Diagnosis: Hypertension Goals: You have been hospitalized for an acute medical problem. During your stay at [facility], we have made an effort to correct the problem that brought you to the hospital while keeping you as comfortable as possible. Medications were used to bring your condition under control and your discharge instructions will include directions for any medications you should take after leaving the hospital. Please make sure you see your Primary Care Provider as part of your follow up plan. Activity: Resume your previous activity Non-emergency contact: Primary Care Provider and Ring Maker Call non-emergency contact if: you have any medication questions, your symptoms worsen and you have a fever Follow-up/Referrals: Narinder Major MD [Physician] - Sean Griggs DO [Primary Care Provider] - Diet: Carb Consistent or DM2 and Heart Healthy Addtl Attending Provider Instructions: You have been hospitalized for elevated blood pressure. It is suspected uncontrolled high blood pressure but also due to anxiety about upcoming abdominal surgery. Dr Major saw you while in the hospital and felt we would be able to discharge you from cardiac standpoint as cardiac enzymes have been negative and ultrasound of your heart didn't show any changes from prior study. We have increased your lisinopril to 20mg by mouth TWICE daily and you should start the imdur as prescribed by Dr Hoskins/[facility] group as recommended by Dr Major, however we have reduced this to 30mg daily given increase in the lisinopril and you can have this increased to 60mg if your blood pressures remain elevated. Dr Major will work on arranging outpatient stress testing for cardiac clearance for your upcoming surgery. We have also sent short prescription of lorazepam to use as needed for anxiety/panic attacks. Please monitor your blood pressures at home, adhere to low salt diet, and weight loss encouraged to help with blood pressure. Please follow up with primary care provider in the next 7-10 days to monitor your progress after discharge. It has been a pleasure being a part of the medical team providing for you while you have been in the hospital. Please return to ER with any significant elevations in blood pressure, if experiencing any chest pain, shortness of breath or other symptoms concerning for you. Take care! Pending Studies at Discharge: No Stand-Alone Forms: My [facility] [employer], Smoking Cessation Medications and DC Order Prescriptions: New lorazepam 0.5 mg tablet 0.5 mg PO Q8H PRN (Reason: anxiety) Qty: 5 0RF isosorbide mononitrate 30 mg tablet extended release 24 hr 30 mg PO DAILY Qty: 30 0RF Continued peg 3350-electrolytes [Golytely] 236-22.74-6.74 -5.86 gram recon soln 240 ml PO Q10M Qty: 4000 0RF Rx Instructions: until fecal effluent is clear atorvastatin 40 mg tablet 40 mg PO QAM omega-3 acid ethyl esters 1 gram capsule 1 cap PO DAILY nitroglycerin 0.4 mg tablet, sublingual 0.4 mg SL Q5M MDD 3 doses in 15 min PRN (Reason: Chest Pain) metformin 1,000 mg tablet 1,000 mg PO BID clopidogrel 75 mg tablet 75 mg PO QAM fluticasone propionate 50 mcg/actuation spray,suspension 2 spray intranasal BID Qty: 1 tamsulosin 0.4 mg capsule 0.4 mg PO HS Qty: 90 insulin glargine 100 unit/mL solution 70 unit subcut HS furosemide 20 mg tablet 20 mg PO QAM PRN (Reason: Edema) azelastine 137 mcg (0.1 %) aerosol,spray 2 sprays intranasal BID insulin aspart U-100 [Novolog U-100 Insulin aspart] 100 unit/mL solution 0 unit subcut AC Rx Instructions: sliding scale aspirin 81 mg tablet,delayed release (DR/EC) 81 mg PO QAM metoprolol succinate 50 mg tablet extended release 24 hr 75 mg PO QAM Changed lisinopril 20 mg tablet 20 mg PO BID Qty: 60 0RF Discontinued isosorbide mononitrate 60 mg tablet extended release 24 hr 60 mg PO DAILY Discharge Orders: Discharge Order (Routine); Ordered 09/30/22 Ordered By: Cecelia Whitehead Admission Data Admit Date/Time: 09/30/22 05:10 Attending Provider: Chava Wilson Admit Provider: Nick Dietz Primary Care Provider: Sean Griggs Other Providers: Nick Dietz ; Narinder Major Coding Level of Care Code INP/OBS EV SAME DAY LV 3,85MIN Diagnoses DM type 2 (diabetes mellitus, type 2) E11.9 Dyslipidemia E78.5 Neuroendocrine cancer C7A.8 CAD (coronary artery disease) I25.10 HTN (hypertension) I10 History of nephrectomy Z90.5 Elevated blood pressure reading with diagnosis of hypertension I10 Hypercholesterolemia E78.00 Diastolic heart failure I50.30 Sleep apnea G47.30 Renal cell carcinoma C64.9
--- NOTE | 2022-09-30 15:46 | Cardiology Consultation ---
Date of Consultation September 30, 2022 Assessment & Plan (1) CAD (coronary artery disease): Post multivessel stenting, most recently 2 BARI to acute on chronic RCA occlusion 11/2021. Residual small mid circumflex disease 2. Hypertension 3. Abdominal incisional/umbilical hernia awaiting surgery 4. Type 2 diabetes 5. Mild mitral regurgitation 6. Preserved LV function, history of right heart failure with RV dilation on echo 7. FRANCESCO off CPAP Patient's blood pressure better controlled today and prior chest pain resolved. HS TropI's remain negative x4. Presenting symptoms do not represent ACS. Suspect significant anxiety component to patient's blood pressure and he plans to talk to primary care regarding treatment options for generalized anxiety. Going forward recommend sending home on increased lisinopril 20 mg twice daily and starting previously prescribed Imdur. Continue current Toprol-XL. He will monitor home blood pressures. Continue current ASCVD secondary prevention with aspirin, clopidogrel and statin. Patient denies any significant changes to recent exertional tolerance or new exertional chest pain. However, with his CAD history and atypical chest symptoms on presentation we will repeat stress test prior to possible abdominal surgery. We will arrange as an outpatient, follow-up with cardiology post stress. From a cardiac standpoint okay with discharge today. History of Present Illness Attending Physician: Chava Wilson MD History of Present Illness Mr. Mejia is a pleasant 57-year-old man with a history of complex coronary artery disease seen today while admitted for observation in the setting of hypertensive urgency, chest discomfort. Past medical history also includes hypertension, dyslipidemia, type 2 diabetes, FRANCESCO off CPAP, prior renal mass post renal cryoablation, history of PNET post partial pancreatectomy/splenectomy 2007. Patient has previous been followed by [facility] for his cardiac care. Patient interested in switching to [facility] Cardiology. Coronary disease initially diagnosed in the setting of inferior [place] 2004 treated with single stent to RCA. Most recently underwent cardiac cath/PCI 12/24/2021 at [facility]. At that time had acute on chronic mid RCA occlusion with [id number] collaterals along with 90% focal mid circumflex stenosis just before patent prior stent. Underwent PCI with 2 BARI to RCA. Postprocedure patient had improvement in exertional dyspnea, chest discomfort. More recently was found on abdominal imaging to have umbilical/incisional hernia. Has been evaluated by 3 surgeons (Kimberlee, Jim Donovan, Wes) and has had preoperative cardiac evaluations in [place] and with [facility] most recently Dr. Hoskins 08/2022. As part of preoperative management his lisinopril has been increased from 10 [address] Peterson added Imdur which patient has not yet taken. Was restarted on aspirin in addition to clopidogrel. Patient states has been dealing with multiple stressors including taking care of the uncle and has been under some stress think about possible surgery. Denies any new change in exercise tolerance or exertional symptoms. Yesterday evening felt unwell noted his blood pressures elevated and continued to feel unwell with some chest discomfort and eventual blood pressures up in the 200s. Took an additional lisinopril. On arrival to ED ECG unchanged, HS TropI negative at 10 but trended up to 18 and was admitted for observation. Did have one episode of hypertension in the 170s overnight with some recurrence of chest discomfort. This morning blood pressure improved after additional lisinopril. Repeat echocardiogram shows preserved LV function with no new wall motion abnormalities. There was some question of AF on telemetry but upon review. She is to have frequent PACs, occasional PVCs and had 1 episode of nonsustained VT, 5 beats. Allergies Allergy/AdvReac Type Severity Reaction Status Date / Time celecoxib [From Celebrex] AdvReac Intermediate Rash Verified 08/13/22 09:19 Home Medications Medication Instructions Recorded Confirmed Type clopidogrel 75 mg tablet 75 mg PO QAM 11/25/18 09/30/22 History fluticasone propionate 50 2 spray intranasal BID #1 g 11/25/18 09/30/22 History mcg/actuation nasal spray,suspension metformin 1,000 mg tablet 1,000 mg PO BID 11/25/18 09/30/22 History nitroglycerin 0.4 mg sublingual 0.4 mg sublingual Q5M PRN Chest 11/25/18 09/30/22 History tablet Pain omega-3 acid ethyl esters 1 gram 1 cap PO DAILY 11/25/18 09/30/22 History capsule tamsulosin 0.4 mg capsule 0.4 mg PO HS #90 caps 11/25/18 09/30/22 History azelastine 137 mcg (0.1 %) nasal 2 sprays intranasal BID 12/23/21 09/30/22 History spray aerosol furosemide 20 mg tablet 20 mg PO QAM PRN Edema 12/23/21 09/30/22 History atorvastatin 40 mg tablet 40 mg PO QAM 08/12/22 09/30/22 History insulin glargine 100 unit/mL 70 unit subcut HS 08/12/22 09/30/22 History subcutaneous solution peg 3350-electrolytes 236 240 ml PO Q10M #4,000 mL 09/23/22 09/30/22 Rx gram-22.74 gram-6.74 gram-5.86 gram solution (Golytely) aspirin 81 mg tablet,delayed 81 mg PO QAM 09/30/22 09/30/22 History release insulin aspart U-100 100 unit/mL 0 unit subcut AC 09/30/22 09/30/22 History subcutaneous solution (Novolog U-100 Insulin aspart) isosorbide mononitrate 60 mg 60 mg PO DAILY 09/30/22 09/30/22 History tablet,extended release 24 hr lisinopril 20 mg tablet 20 mg PO BID #60 tabs 09/30/22 09/30/22 Rx lorazepam 0.5 mg tablet 0.5 mg PO Q8H PRN anxiety #5 tabs 09/30/22 Rx metoprolol succinate 50 mg 75 mg PO QAM 09/30/22 09/30/22 History tablet,extended release 24 hr Patient History Medical History Acquired renal cyst Allergic rhinitis CAD (coronary artery disease) "2004 - inferior wall [place], s/p BARI to proximal mid RCA 08/2011 - BARI x 2 to mid left circumflex 10/2011 - cath negative for stent restenosis, showed diffuse minor luminal irregularities 09/2012 - cath showed nonobstructive CAD with patent stents" On 11/20/16 13:28 Cecelia Humphrey wrote "2004 - inferior wall [place], s/p BARI to proximal mid RCA " Calculus of kidney Deviated septum Diastolic heart failure DM type 2 (diabetes mellitus, type 2) Hidradenitis suppurativa HTN (hypertension) Hypertrophy of both inferior nasal turbinates Neuroendocrine cancer Renal cell carcinoma Sleep apnea Surgical History H/O colonoscopy (2007) H/O hernia repair H/O knee surgery H/O splenectomy History of cardiac catheterization (12/24/21) multiple 12/24/21 Dr. Major - Coronary Angiography, Left Heart Cath, Drug Eluting Stent, Ultrasound Guided Vascular Access and IVUS History of nasal septoplasty History of nephrectomy renal cryoablation History of partial pancreatectomy S/P nasal surgery Family History Grandmother Cardiac disorder Unknown Breast cancer Aunt Cardiac disorder Denies family history of Prostate cancer Social History Smoking Status: Former smoker Tobacco Type: Cigarettes Smoking End Date: 2003; Hx Alcohol Use: Yes Alcohol type: beer Hx Substance Use: No Preferred Language: Irish Communication Ability: Effective Industrial Cleaning Technician Required: No Beliefs That Will Affect Care: None Current Living Situation: Significant Other Current Living Situation Comment: lives with uncle current occupational status: employed 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 Vascular: 2+ radial, DP pulses. No bruits Abdomen: Soft, nontender Extremities: Well perfused, no peripheral edema Neuro: Nonfocal Psych: Alert orient x3, normal affect and mood Results & Data Vital Signs (Past 12 Hours) Vital Signs Temp Pulse Pulse Resp BP BP BP 09/30/22 11:01 98.1 F 59 L 22 126/71 09/30/22 08:59 09/30/22 09:30 67 22 09/30/22 09:00 64 19 09/30/22 08:59 154/82 H 09/30/22 08:59 61 21 09/30/22 08:30 55 L 13 09/30/22 08:02 63 16 09/30/22 07:56 62 14 170/70 H 09/30/22 06:33 70 21 09/30/22 06:21 59 L 18 137/74 09/30/22 05:00 51 L 17 145/76 H 09/30/22 04:30 49 L 19 149/87 H 09/30/22 04:15 53 L 16 143/66 H 09/30/22 03:30 57 L 19 156/85 H 09/30/22 03:00 54 L 24 161/61 H 09/30/22 02:30 56 L 21 156/73 H 09/30/22 04:28 51 L 09/30/22 04:00 50 L 18 143/66 H Pulse Ox O2 Del Method O2 Del Method 09/30/22 11:01 97 Room Air 09/30/22 08:59 Room Air 09/30/22 09:30 09/30/22 09:00 09/30/22 08:59 09/30/22 08:59 95 Room Air 09/30/22 08:30 09/30/22 08:02 09/30/22 07:56 95 Room Air 09/30/22 06:33 09/30/22 06:21 97 Room Air 09/30/22 05:00 94 09/30/22 04:30 96 09/30/22 04:15 97 09/30/22 03:30 96 09/30/22 03:00 96 09/30/22 02:30 95 09/30/22 04:28 09/30/22 04:00 95 Room Air PG Care Time/CCT Total # of Minutes Spent Total Time Spent with Patient: Total time spent is greater than 50% in coordination of care (as documented) at patient's floor/unit and/or counseling patient: Coding Level of Care Code 52125 OFFICE CONSULT LVL M Diagnoses CAD (coronary artery disease) I25.10
[2022-09-30] MEDS ORDERED: TAMSULOSIN HCL 0.4 MG CAP PO SCH (21:00)
[2022-09-30] MEDS ORDERED: LANTUS PER UNIT CHARGE SQ SCH (21:00)
--- NOTE | 2022-10-02 05:41 | Electrocardiogram Report ---
Test Reason : Blood Pressure : / mmHG Vent. Rate : 061 BPM Atrial Rate : 061 BPM P-R Int : 210 ms QRS Dur : 096 ms QT Int : 438 ms P-R-T Axes : 045 060 036 degrees QTc Int : 440 ms Sinus rhythm with 1st degree A-V block with Premature supraventricular complexes Otherwise normal ECG When compared with ECG of 30-SEP-2022 00:22, No significant change was found Confirmed by Dave Chahal ([id number]) on 10/02/2022 5:41:17 AM Referred By: REFERRED SELF Confirmed By:Dave Chahal
--- NOTE | 2022-10-02 06:16 | Electrocardiogram Report ---
Test Reason : Blood Pressure : / mmHG Vent. Rate : 056 BPM Atrial Rate : 056 BPM P-R Int : 214 ms QRS Dur : 092 ms QT Int : 464 ms P-R-T Axes : 013 065 057 degrees QTc Int : 447 ms Sinus bradycardia with 1st degree A-V block Otherwise normal ECG When compared with ECG of 30-SEP-2022 00:23, Premature supraventricular complexes are no longer Present Confirmed by Dave Chahal ([id number]) on 10/02/2022 6:15:44 AM Referred By: REFERRED SELF Confirmed By:Dave Chahal
== END 2022-09-30 16:30 | disposition home or self-care (01) ==
LOC: EDINP 00:06 → ED 00:06 → SUATTDRO 05:10 → EDINP 05:48